=== PATIENT | female | born 1940 | race African-American/Black ===

== ENCOUNTER 2019-06-16 15:10 | Inpatient (IN) | payer MEDICARE, OTHER ==
[~2019-06-16] VITALS: Ht 157.5 cm; Wt 85.0 kg
[~2019-06-16 15:10] MED LIST: ASPI81CH43 GT; BAC20LQ GT; ENAL2.5T OR; LEVO25TA6 OR; OMEPRAZOLE; POTASSIUM; TRIATAB3 OR
[2019-06-16] MEDS ORDERED: cefTRIAXone 1GM/50ML D5W 50 ML IV ONE (15:15)
[2019-06-16] MEDS ORDERED: AZITHROMYCIN 500MG/ 250ML 250 ML IV ONE (15:15)
[2019-06-16] MEDS ORDERED: ZINC SULFATE 220mg CAP or TAB PO ONE (15:15)
[2019-06-16] MEDS ORDERED: ASCORBIC ACID 500 MG TAB PO ONE (15:15)
[2019-06-16] MEDS ORDERED: hydrALAZINE HCL 20 MG/ML VL IV PRN (16:45)
[2019-06-16] MEDS ORDERED: NITROGLYCERIN 0.4 MG SL TAB SL PRN (16:45)
[2019-06-16] MEDS ORDERED: ONDANSETRON HCL 4 MG/2 ML VIAL IV PRN (16:45)
[2019-06-16] MEDS ORDERED: MORPHINE SULF INJ 2 MG/ML SYRINGE 1ML IV PRN ×2 (16:45)
[2019-06-16 16:58] LABS: Basophils # (auto) 0.1 10 ^3/uL (0-0.2); Basophils % (auto) 0.4 % (0.0-2.0); Eosinophils # (auto) 0.1 10 ^3/uL (0-0.8); Eosinophils % (auto) 0.9 % (0.0-7.0); Hematocrit 34.3 % (36.0-46.0); Hemoglobin 10.9 g/dL (12.2-16.2); Lymphocytes # (auto) 0.3 10 ^3/uL (0.4-5.4); Lymphocytes % (auto) 2.1 % (10.0-50.0); Mean Corpuscular Hemoglobin 28.2 pg (28.0-32.0); Mean Corpuscular Hgb Conc. 31.8 g/dL (32.0-36.0); Mean Corpuscular Volume 88.7 fL (80.0-100.0); Monocytes # (auto) 1.2 10 ^3/uL (0-1.3); Monocytes % (auto) 7.9 % (0.0-12.0); Neutrophils # (auto) 12.9 10 ^3/uL (1.6-8.6); Neutrophils % (auto) 88.7 % (37.0-80.0); Nucleated Red Blood Cells % 0.1 %; Platelet Count (auto) 196 10^3/uL (140-450); Red Blood Cells 3.87 10^6/uL (4.0-5.20); Red Cell Distribution Width 18.2 % (11.8-14.3); White Blood Cell 14.5 10^3/uL (4.4-10.8)
[2019-06-16 17:05] LABS: INR 1.62 (0.9-1.15); Partial Thromboplastin Time 48.7 sec (23.64-32.05)
[2019-06-16 17:10] LABS: Albumin 1.8 g/dL (3.4-5.0); Anion Gap 9 (5-15); Blood Urea Nitrogen 35 mg/dL (7-18); Calcium 7.8 mg/dL (8.5-10.1); Carbon Dioxide 23 mmol/L (21-32); Chloride 102 mmol/L (98-107); Glucose 149 mg/dL (74-106); Potassium 3.8 mmol/L (3.5-5.1); Sodium 134 mmol/L (136-145)
[2019-06-16 17:12] LABS: Alanine Aminotransferase 7 U/L (13-56); Aspartate Aminotransferase 8 U/L (15-37); BUN/Creatinine Ratio 21.5; GFR African American 39 mL/min; GFR Non-African American 32 mL/min
[2019-06-16 17:15] LABS: Lactic Acid w/Reflex 2.3 mmol/L (0.4-2.0)
[2019-06-16 17:16] LABS: Alkaline Phosphatase 64 U/L (45-117); Bilirubin, Total 0.5 mg/dL (0.2-1.0); Total Protein 7.1 g/dL (6.4-8.2)
[2019-06-16 19:00] VITALS: BP 127/59
[2019-06-16 20:00] VITALS: BP_SYST 121; BP_SYST 127; BP_DIAS 58; BP_DIAS 59
[2019-06-16 21:00] VITALS: BP 118/55
[2019-06-16 21:07] VITALS: BP 127/59
[2019-06-16 22:00] VITALS: BP 130/66
[2019-06-17] VITALS (94 sets, daily range): BP systolic 82–138; BP diastolic 37–68
[2019-06-17] MEDS ORDERED: ALBUTEROL SULF 2.5 MG/0.5ML(0.5%) NEB SOLN NEB PRN (01:30)
[2019-06-17] MEDS ORDERED: ETOMIDATE (2MG/ML) 20ML VIAL IV ONE (01:47)
[2019-06-17] MEDS ORDERED: ROCURONIUM 10MG/ML 10ML VIAL IV ONE (01:48)
[2019-06-17] MEDS ORDERED: SUCCINYLCHOLINE CHLORIDE 20 MG/ML 10ML VIAL IV ONE (01:48)
[2019-06-17] MEDS ORDERED: MIDAZOLAM DRIP 50 mg/50mL 50 ML IV ONE (02:17)
[2019-06-17] MEDS: MIDAZOLAM DRIP 50 mg/50mL 50 ML IV SCH ×3 (02:30→23:33)
[2019-06-17] MEDS: IPRATROPIUM BROM 0.5 MG/2.5ML INH SOL NEB SCH ×4 (02:39→18:06)
[2019-06-17] MEDS: ALBUTEROL SULF 2.5 MG/0.5ML(0.5%) NEB SOLN NEB SCH ×4 (02:39→18:05)
[2019-06-17] MEDS: fentaNYL Drip 2500mCg/250mlNS 250 ML IV SCH ×2 (02:50→22:00)
[2019-06-17] MEDS ORDERED: ALBUMIN 5% 250 ML IV ONE ×2 (03:00→03:02)
[2019-06-17] MEDS ORDERED: fentaNYL Drip 2500mCg/250mlNS 250 ML IV ONE (03:01)
[2019-06-17 04:51] LABS: Basophils # (auto) 0.1 10 ^3/uL (0-0.2); Basophils % (auto) 0.6 % (0.0-2.0); Eosinophils # (auto) 0.3 10 ^3/uL (0-0.8); Hematocrit 31.1 % (36.0-46.0); Lymphocytes # (auto) 0.6 10 ^3/uL (0.4-5.4); Lymphocytes % (auto) 4.2 % (10.0-50.0); Mean Corpuscular Hemoglobin 28.2 pg (28.0-32.0); Mean Corpuscular Hgb Conc. 32.1 g/dL (32.0-36.0); Mean Corpuscular Volume 87.9 fL (80.0-100.0); Monocytes # (auto) 1.1 10 ^3/uL (0-1.3); Monocytes % (auto) 7.5 % (0.0-12.0); Neutrophils # (auto) 12.6 10 ^3/uL (1.6-8.6); Neutrophils % (auto) 85.7 % (37.0-80.0); Nucleated Red Blood Cells % 0.1 %; Platelet Count (auto) 193 10^3/uL (140-450); Red Blood Cells 3.54 10^6/uL (4.0-5.20); Red Cell Distribution Width 18.7 % (11.8-14.3); White Blood Cell 14.7 10^3/uL (4.4-10.8)
[2019-06-17] MEDS: LEVOTHYROXINE SODIUM 25 MCG TAB PO SCH (06:50)
[2019-06-17] MEDS ORDERED: NOREPINEPHRINE 8 MG/250ML KIT 250 ML IV ONE (07:05)
[2019-06-17] MEDS: NOREPINEPHRINE 8 MG/250ML KIT 250 ML IV SCH ×2 (07:08→22:00)
[2019-06-17] MEDS: ACETAMINOPHEN 500 MG TAB PO PRN (08:31)
[2019-06-17 08:45] LABS: Albumin 1.8 g/dL (3.4-5.0); BUN/Creatinine Ratio 18.6; Calcium 7.7 mg/dL (8.5-10.1); Potassium 3.6 mmol/L (3.5-5.1)
[2019-06-17 08:55] LABS: Bilirubin, Total 0.5 mg/dL (0.2-1.0); Total Protein 6.6 g/dL (6.4-8.2)
[2019-06-17] MEDS: ASPirin 81 mg TAB PO SCH (10:00)
[2019-06-17] MEDS: AZITHROMYCIN 500MG/ 250ML 250 ML IV SCH (12:53)
[2019-06-17] MEDS: PIPERACILLIN-TAZOB 3.375GM 100 ML IV SCH ×3 (14:59→23:40)
[2019-06-17 18:24] LABS: Urine Amorphous Crystal FEW /hpf (None Seen); Urine Bacteria NONE SEEN /hpf (None Seen); Urine Blood 1+ /uL (Negative); Urine Hyaline Cast MANY /lpf (0 - 2); Urine Mucus FEW (None Seen); Urine WBC 50 /hpf (0 - 5)
[2019-06-17] MEDS ORDERED: AML5T PO (19:32)
[2019-06-17] MEDS ORDERED: RIVA20TA PO (19:32)
[2019-06-17] MEDS ORDERED: HCTZ25T PO (19:32)
[2019-06-17] MEDS ORDERED: AMIO200T33 PO (19:32)
[2019-06-17] MEDS ORDERED: ATOR20TA50 PO (19:32)
[2019-06-18] VITALS (101 sets, daily range): BP systolic 90–126; BP diastolic 39–78
[2019-06-18] MEDS: ALBUTEROL SULF 2.5 MG/0.5ML(0.5%) NEB SOLN NEB SCH ×4 (00:05→18:15)
[2019-06-18] MEDS: IPRATROPIUM BROM 0.5 MG/2.5ML INH SOL NEB SCH ×4 (00:05→18:15)
[2019-06-18] MEDS: MIDAZOLAM DRIP 50 mg/50mL 50 ML IV SCH ×5 (02:30→20:20)
[2019-06-18] MEDS: PIPERACILLIN-TAZOB 3.375GM 100 ML IV SCH ×2 (05:30→12:48)
[2019-06-18 06:23] LABS: Basophils # (auto) 0.1 10 ^3/uL (0-0.2); Basophils % (auto) 0.7 % (0.0-2.0); Eosinophils # (auto) 0.8 10 ^3/uL (0-0.8); Eosinophils % (auto) 6.4 % (0.0-7.0); Hematocrit 29.1 % (36.0-46.0); Hemoglobin 9.4 g/dL (12.2-16.2); Lymphocytes # (auto) 0.7 10 ^3/uL (0.4-5.4); Lymphocytes % (auto) 5.4 % (10.0-50.0); Mean Corpuscular Hemoglobin 28.2 pg (28.0-32.0); Mean Corpuscular Hgb Conc. 32.2 g/dL (32.0-36.0); Mean Corpuscular Volume 87.3 fL (80.0-100.0); Monocytes # (auto) 0.9 10 ^3/uL (0-1.3); Monocytes % (auto) 7.6 % (0.0-12.0); Neutrophils # (auto) 9.8 10 ^3/uL (1.6-8.6); Neutrophils % (auto) 79.9 % (37.0-80.0); Platelet Count (auto) 162 10^3/uL (140-450); Red Blood Cells 3.33 10^6/uL (4.0-5.20); Red Cell Distribution Width 18.4 % (11.8-14.3); White Blood Cell 12.3 10^3/uL (4.4-10.8)
[2019-06-18 06:33] LABS: Potassium 3.9 mmol/L (3.5-5.1)
[2019-06-18 06:41] LABS: Albumin 1.8 g/dL (3.4-5.0); Bilirubin, Total 0.6 mg/dL (0.2-1.0); Calcium 7.4 mg/dL (8.5-10.1); Total Protein 7.1 g/dL (6.4-8.2)
[2019-06-18] MEDS: LEVOTHYROXINE SODIUM 25 MCG TAB PO SCH (06:44)
[2019-06-18] MEDS: ASPirin 81 mg TAB PO SCH (10:35)
[2019-06-18] MEDS: NOREPINEPHRINE 8 MG/250ML KIT 250 ML IV SCH (10:36)
[2019-06-18] MEDS: AZITHROMYCIN 500MG/ 250ML 250 ML IV SCH (10:36)
[2019-06-18] MEDS: fentaNYL Drip 2500mCg/250mlNS 250 ML IV SCH (16:42)
[2019-06-18] MEDS: PIPERACILLIN-TAZOB 2.25GM 50 ML IV SCH (17:58)
[2019-06-19] VITALS (103 sets, daily range): BP systolic 83–123; BP diastolic 31–59
[2019-06-19] MEDS: PIPERACILLIN-TAZOB 2.25GM 50 ML IV SCH ×4 (00:05→17:52)
[2019-06-19] MEDS: IPRATROPIUM BROM 0.5 MG/2.5ML INH SOL NEB SCH ×4 (00:10→18:10)
[2019-06-19] MEDS: ALBUTEROL SULF 2.5 MG/0.5ML(0.5%) NEB SOLN NEB SCH ×4 (00:10→18:10)
[2019-06-19] MEDS: NOREPINEPHRINE 8 MG/250ML KIT 250 ML IV SCH ×2 (03:44→17:52)
[2019-06-19] MEDS: MIDAZOLAM DRIP 50 mg/50mL 50 ML IV SCH ×3 (03:44→23:02)
[2019-06-19] MEDS: LEVOTHYROXINE SODIUM 25 MCG TAB PO SCH (06:22)
[2019-06-19 07:07] LABS: Basophils # (auto) 0.1 10 ^3/uL (0-0.2); Basophils % (auto) 0.8 % (0.0-2.0); Eosinophils # (auto) 0.6 10 ^3/uL (0-0.8); Eosinophils % (auto) 5.9 % (0.0-7.0); Hematocrit 28.6 % (36.0-46.0); Hemoglobin 9.2 g/dL (12.2-16.2); Lymphocytes # (auto) 0.6 10 ^3/uL (0.4-5.4); Mean Corpuscular Hemoglobin 28.2 pg (28.0-32.0); Mean Corpuscular Hgb Conc. 32.2 g/dL (32.0-36.0); Mean Corpuscular Volume 87.6 fL (80.0-100.0); Monocytes # (auto) 0.9 10 ^3/uL (0-1.3); Monocytes % (auto) 8.8 % (0.0-12.0); Neutrophils # (auto) 8.2 10 ^3/uL (1.6-8.6); Neutrophils % (auto) 78.5 % (37.0-80.0); Nucleated Red Blood Cells % 0.1 %; Platelet Count (auto) 141 10^3/uL (140-450); Red Blood Cells 3.26 10^6/uL (4.0-5.20); Red Cell Distribution Width 17.8 % (11.8-14.3); White Blood Cell 10.4 10^3/uL (4.4-10.8)
[2019-06-19 07:21] LABS: Potassium 3.7 mmol/L (3.5-5.1)
[2019-06-19 07:27] LABS: Albumin 1.6 g/dL (3.4-5.0); BUN/Creatinine Ratio 16.3; Calcium 7.6 mg/dL (8.5-10.1)
[2019-06-19 07:29] LABS: Bilirubin, Total 0.5 mg/dL (0.2-1.0); Total Protein 6.8 g/dL (6.4-8.2)
[2019-06-19] MEDS: PANTOPRAZOLE 40 MG/10 ML VIAL INJ IV SCH (10:54)
[2019-06-19] MEDS: ASPirin 81 mg TAB PO SCH (10:54)
[2019-06-19] MEDS: AZITHROMYCIN 500MG/ 250ML 250 ML IV SCH (10:54)
[2019-06-19] MEDS: fentaNYL Drip 2500mCg/250mlNS 250 ML IV SCH (11:13)
[2019-06-19] MEDS: METOCLOPRAMIDE HCL 5MG/ml INJ 2ml VIAL IV SCH ×2 (12:47→17:52)
[2019-06-19] MEDS ORDERED: ROCURONIUM 10MG/ML 10ML VIAL IV ONE (14:49)
[2019-06-20] VITALS (102 sets, daily range): BP systolic 88–130; BP diastolic 32–105
[2019-06-20] MEDS: IPRATROPIUM BROM 0.5 MG/2.5ML INH SOL NEB SCH ×4 (00:07→18:06)
[2019-06-20] MEDS: ALBUTEROL SULF 2.5 MG/0.5ML(0.5%) NEB SOLN NEB SCH ×4 (00:07→18:07)
[2019-06-20] MEDS ORDERED: FUROSEMIDE 40 MG/4 ML VIAL IV ONE (02:00)
[2019-06-20 04:01] LABS: Basophils # (auto) 0.1 10 ^3/uL (0-0.2); Basophils % (auto) 1.2 % (0.0-2.0); Eosinophils # (auto) 0.5 10 ^3/uL (0-0.8); Hematocrit 26.5 % (36.0-46.0); Hemoglobin 8.5 g/dL (12.2-16.2); Lymphocytes # (auto) 0.6 10 ^3/uL (0.4-5.4); Lymphocytes % (auto) 5.7 % (10.0-50.0); Mean Corpuscular Hemoglobin 27.6 pg (28.0-32.0); Mean Corpuscular Hgb Conc. 31.9 g/dL (32.0-36.0); Mean Corpuscular Volume 86.6 fL (80.0-100.0); Monocytes # (auto) 0.8 10 ^3/uL (0-1.3); Neutrophils # (auto) 8.2 10 ^3/uL (1.6-8.6); Neutrophils % (auto) 80.1 % (37.0-80.0); Platelet Count (auto) 134 10^3/uL (140-450); Red Blood Cells 3.06 10^6/uL (4.0-5.20); White Blood Cell 10.3 10^3/uL (4.4-10.8)
[2019-06-20 04:19] LABS: Albumin 1.5 g/dL (3.4-5.0); Calcium 7.3 mg/dL (8.5-10.1); Potassium 3.5 mmol/L (3.5-5.1)
[2019-06-20 04:22] LABS: Bilirubin, Total 0.4 mg/dL (0.2-1.0); Total Protein 6.9 g/dL (6.4-8.2)
[2019-06-20 04:35] LABS: Lactate Dehydrogenase 150 U/L (84-246)
[2019-06-20 04:36] LABS: CRP High Sensitivity > 19.0 mg/dL (< 0.3)
[2019-06-20] MEDS ORDERED: FUROSEMIDE 20 MG/2 ML VIAL ONE (05:13)
[2019-06-20] MEDS: METOCLOPRAMIDE HCL 5MG/ml INJ 2ml VIAL IV SCH ×4 (05:41→18:23)
[2019-06-20] MEDS: PIPERACILLIN-TAZOB 2.25GM 50 ML IV SCH ×4 (05:41→18:23)
[2019-06-20] MEDS: fentaNYL Drip 2500mCg/250mlNS 250 ML IV SCH (06:02)
[2019-06-20] MEDS: LEVOTHYROXINE SODIUM 25 MCG TAB PO SCH (06:37)
[2019-06-20] MEDS: ASPirin 81 mg TAB PO SCH (10:00)
[2019-06-20] MEDS: PANTOPRAZOLE 40 MG/10 ML VIAL INJ IV SCH (10:36)
[2019-06-20] MEDS: AZITHROMYCIN 500MG/ 250ML 250 ML IV SCH (10:36)
[2019-06-20] MEDS ORDERED: POTASSIUM EFFERVESENT TAB 25 MEQ GT ONE (11:45)
[2019-06-20] MEDS ORDERED: ALBUMIN 25% 100 ML IV ONE (12:13)
[2019-06-20] MEDS: MIDAZOLAM DRIP 50 mg/50mL 50 ML IV SCH (12:15)
[2019-06-20] MEDS: NOREPINEPHRINE 8 MG/250ML KIT 250 ML IV SCH (12:18)
[2019-06-20] MEDS: ALBUMIN 25% 100 ML IV SCH ×2 (12:27→23:52)
[2019-06-20] MEDS: BUMETANIDE 2.5mg/10ml (0.25 mg/ml) INJ IV SCH ×2 (14:24→18:14)
[2019-06-20 17:06] LABS: Protein, Urine 37.3 mg/dL (0.0-11.9)
[2019-06-20] MEDS ORDERED: HEPARIN SODIUM (PORCINE) 5000 UNITS/ML 1ML VIAL IV ONE (21:00)
[2019-06-20 21:16] LABS: Basophils # (auto) 0.1 10 ^3/uL (0-0.2); Eosinophils # (auto) 0.6 10 ^3/uL (0-0.8); Hematocrit 23.2 % (36.0-46.0); Lymphocytes # (auto) 0.6 10 ^3/uL (0.4-5.4); Monocytes # (auto) 0.8 10 ^3/uL (0-1.3); Neutrophils % (auto) 76.8 % (37.0-80.0); Red Blood Cells 2.68 10^6/uL (4.0-5.20)
[2019-06-20 21:18] LABS: Basophils % (auto) 0.9 % (0.0-2.0); Eosinophils % (auto) 6.4 % (0.0-7.0); Hemoglobin 7.5 g/dL (12.2-16.2); Lymphocytes % (auto) 6.8 % (10.0-50.0); Mean Corpuscular Hgb Conc. 32.5 g/dL (32.0-36.0); Mean Corpuscular Volume 86.3 fL (80.0-100.0); Monocytes % (auto) 9.1 % (0.0-12.0); Neutrophils # (auto) 6.7 10 ^3/uL (1.6-8.6); Platelet Count (auto) 117 10^3/uL (140-450); Red Cell Distribution Width 17.8 % (11.8-14.3); White Blood Cell 8.7 10^3/uL (4.4-10.8)
[2019-06-20 21:40] LABS: INR 1.15 (0.9-1.15); Partial Thromboplastin Time 36.6 sec (23.64-32.05)
[2019-06-20] MEDS: HEPARIN DRIP/D5W 100UNITS/ML 250 ML IV SCH (21:40)
[2019-06-20] MEDS: methylPREDNISolone SOD SUCC 40 MG/ML VL IV SCH (22:00)
[2019-06-21] VITALS (102 sets, daily range): BP systolic 91–138; BP diastolic 25–66
[2019-06-21] MEDS: ALBUTEROL SULF 2.5 MG/0.5ML(0.5%) NEB SOLN NEB SCH ×4 (00:05→18:39)
[2019-06-21] MEDS: IPRATROPIUM BROM 0.5 MG/2.5ML INH SOL NEB SCH ×4 (00:05→18:39)
[2019-06-21] MEDS: MIDAZOLAM DRIP 50 mg/50mL 50 ML IV SCH ×2 (01:40→07:23)
[2019-06-21] MEDS: fentaNYL Drip 2500mCg/250mlNS 250 ML IV SCH ×2 (01:40→21:21)
[2019-06-21 04:19] LABS: Basophils # (auto) 0 10 ^3/uL (0-0.2); Basophils % (auto) 0.5 % (0.0-2.0); Eosinophils # (auto) 0 10 ^3/uL (0-0.8); Eosinophils % (auto) 0.5 % (0.0-7.0); Hematocrit 22.6 % (36.0-46.0); Hemoglobin 7.5 g/dL (12.2-16.2); Lymphocytes # (auto) 0.2 10 ^3/uL (0.4-5.4); Lymphocytes % (auto) 2.3 % (10.0-50.0); Mean Corpuscular Hemoglobin 28.7 pg (28.0-32.0); Mean Corpuscular Hgb Conc. 33.1 g/dL (32.0-36.0); Mean Corpuscular Volume 86.8 fL (80.0-100.0); Monocytes # (auto) 0.1 10 ^3/uL (0-1.3); Monocytes % (auto) 0.7 % (0.0-12.0); Neutrophils # (auto) 6.9 10 ^3/uL (1.6-8.6); Platelet Count (auto) 110 10^3/uL (140-450); Red Cell Distribution Width 17.8 % (11.8-14.3); White Blood Cell 7.2 10^3/uL (4.4-10.8)
[2019-06-21 04:21] LABS: BUN/Creatinine Ratio 17.8; Calcium 7.4 mg/dL (8.5-10.1); Potassium 4.2 mmol/L (3.5-5.1)
[2019-06-21 04:38] LABS: INR 1.16 (0.9-1.15)
[2019-06-21 05:00] LABS: Partial Thromboplastin Time 101.1 sec (23.64-32.05)
[2019-06-21] MEDS: BUMETANIDE 2.5mg/10ml (0.25 mg/ml) INJ IV SCH ×2 (05:38→17:59)
[2019-06-21] MEDS: LEVOTHYROXINE SODIUM 25 MCG TAB PO SCH (05:38)
[2019-06-21] MEDS: METOCLOPRAMIDE HCL 5MG/ml INJ 2ml VIAL IV SCH ×4 (05:38→17:59)
[2019-06-21] MEDS: PIPERACILLIN-TAZOB 2.25GM 50 ML IV SCH ×4 (06:00→17:59)
[2019-06-21] MEDS: PANTOPRAZOLE 40 MG/10 ML VIAL INJ IV SCH (10:33)
[2019-06-21] MEDS: ASPirin 81 mg TAB PO SCH (10:34)
[2019-06-21] MEDS: AZITHROMYCIN 500MG/ 250ML 250 ML IV SCH (10:34)
[2019-06-21] MEDS: methylPREDNISolone SOD SUCC 40 MG/ML VL IV SCH ×2 (10:34→21:26)
[2019-06-21 11:25] LABS: INR 1.15 (0.9-1.15); Partial Thromboplastin Time 69.4 sec (23.64-32.05)
[2019-06-21] MEDS: ALBUMIN 25% 100 ML IV SCH (12:12)
[2019-06-21] MEDS: HEPARIN DRIP/D5W 100UNITS/ML 250 ML IV SCH (14:52)
[2019-06-21 18:40] LABS: INR 1.13 (0.9-1.15)
[2019-06-22] VITALS (111 sets, daily range): BP systolic 90–159; BP diastolic 27–81
[2019-06-22] MEDS: PIPERACILLIN-TAZOB 2.25GM 50 ML IV SCH ×4 (00:20→17:47)
[2019-06-22] MEDS: METOCLOPRAMIDE HCL 5MG/ml INJ 2ml VIAL IV SCH ×4 (00:20→17:46)
[2019-06-22] MEDS: ALBUTEROL SULF 2.5 MG/0.5ML(0.5%) NEB SOLN NEB SCH ×4 (00:37→18:33)
[2019-06-22] MEDS: IPRATROPIUM BROM 0.5 MG/2.5ML INH SOL NEB SCH ×4 (00:37→18:32)
[2019-06-22] MEDS: ALBUMIN 25% 100 ML IV SCH (01:18)
[2019-06-22 02:33] LABS: INR 1.15 (0.9-1.15)
[2019-06-22 04:38] LABS: Basophils # (auto) 0 10 ^3/uL (0-0.2); Eosinophils # (auto) 0 10 ^3/uL (0-0.8); Eosinophils % (auto) 0.1 % (0.0-7.0); Lymphocytes # (auto) 0.3 10 ^3/uL (0.4-5.4); Mean Corpuscular Volume 86.5 fL (80.0-100.0); Monocytes # (auto) 0.2 10 ^3/uL (0-1.3); Nucleated Red Blood Cells % 0.1 %; Platelet Count (auto) 134 10^3/uL (140-450); Red Cell Distribution Width 17.9 % (11.8-14.3)
[2019-06-22 04:41] LABS: Basophils % (auto) 0.2 % (0.0-2.0); Hematocrit 20.8 % (36.0-46.0); Lymphocytes % (auto) 4.6 % (10.0-50.0); Mean Corpuscular Hemoglobin 28.2 pg (28.0-32.0); Mean Corpuscular Hgb Conc. 32.6 g/dL (32.0-36.0); Monocytes % (auto) 2.9 % (0.0-12.0); Neutrophils # (auto) 5.1 10 ^3/uL (1.6-8.6); Neutrophils % (auto) 92.2 % (37.0-80.0); Red Blood Cells 2.41 10^6/uL (4.0-5.20); White Blood Cell 5.5 10^3/uL (4.4-10.8)
[2019-06-22 04:47] LABS: Hemoglobin 6.8 g/dL (12.2-16.2)
[2019-06-22 05:10] LABS: Potassium 3.8 mmol/L (3.5-5.1)
[2019-06-22 05:17] LABS: Albumin 2.3 g/dL (3.4-5.0); Bilirubin, Total 0.4 mg/dL (0.2-1.0); Calcium 7.7 mg/dL (8.5-10.1); Total Protein 6.5 g/dL (6.4-8.2)
[2019-06-22 05:25] LABS: CRP High Sensitivity 8.37 mg/dL (< 0.3)
[2019-06-22] MEDS: HEPARIN DRIP/D5W 100UNITS/ML 250 ML IV SCH ×2 (06:27→22:40)
[2019-06-22] MEDS: BUMETANIDE 2.5mg/10ml (0.25 mg/ml) INJ IV SCH ×2 (06:28→17:47)
[2019-06-22] MEDS: LEVOTHYROXINE SODIUM 25 MCG TAB PO SCH (07:00)
[2019-06-22] MEDS: NOREPINEPHRINE 8 MG/250ML KIT 250 ML IV SCH (07:02)
[2019-06-22] MEDS ORDERED: EPINEPHrine HCL 1 MG/1 ML AMP ONE (08:59)
[2019-06-22] MEDS ORDERED: LIDOCAINE HCL 2% TOP JELLY 5ML TOP ONE (08:59)
[2019-06-22] MEDS ORDERED: SODIUM CHLORIDE LOCK 0 ML ONE (08:59)
[2019-06-22] MEDS ORDERED: LIDOCAINE 2%HCL (LOCAL ANESTH.) INJ 20ML MDV ONE (08:59)
[2019-06-22] MEDS ORDERED: SODIUM BICARBONATE 8.4 % INJ 50ML VIAL IV ONE (09:30)
[2019-06-22] MEDS: ASPirin 81 mg TAB PO SCH (10:00)
[2019-06-22] MEDS: AZITHROMYCIN 500MG/ 250ML 250 ML IV SCH (10:21)
[2019-06-22] MEDS: methylPREDNISolone SOD SUCC 40 MG/ML VL IV SCH ×2 (10:21→22:41)
[2019-06-22] MEDS: PANTOPRAZOLE 40 MG/10 ML VIAL INJ IV SCH (10:21)
[2019-06-22] MEDS: fentaNYL Drip 2500mCg/250mlNS 250 ML IV SCH (10:24)
[2019-06-22] MEDS: MIDAZOLAM DRIP 50 mg/50mL 50 ML IV SCH ×2 (10:24→22:28)
[2019-06-22] MEDS ORDERED: ACETYLCYSTEINE 10 %(100MG/ML) SOL 4ML NEB ONE (11:45)
[2019-06-22] MEDS ORDERED: ROCURONIUM 10MG/ML 10ML VIAL IV ONE (13:05)
[2019-06-23] VITALS (107 sets, daily range): BP systolic 105–145; BP diastolic 35–67
[2019-06-23] MEDS: METOCLOPRAMIDE HCL 5MG/ml INJ 2ml VIAL IV SCH ×5 (00:02→23:57)
[2019-06-23] MEDS: PIPERACILLIN-TAZOB 2.25GM 50 ML IV SCH ×5 (00:03→23:57)
[2019-06-23] MEDS: ALBUTEROL SULF 2.5 MG/0.5ML(0.5%) NEB SOLN NEB SCH ×4 (00:21→18:39)
[2019-06-23] MEDS: IPRATROPIUM BROM 0.5 MG/2.5ML INH SOL NEB SCH ×4 (00:21→18:39)
[2019-06-23 01:18] LABS: Hemoglobin 8.2 g/dL (12.2-16.2)
[2019-06-23 01:24] LABS: INR 1.2 (0.9-1.15)
[2019-06-23] MEDS: fentaNYL Drip 2500mCg/250mlNS 250 ML IV SCH (02:00)
[2019-06-23] MEDS: MIDAZOLAM DRIP 50 mg/50mL 50 ML IV SCH (04:14)
[2019-06-23] MEDS: BUMETANIDE 2.5mg/10ml (0.25 mg/ml) INJ IV SCH ×2 (05:51→18:51)
[2019-06-23] MEDS: LEVOTHYROXINE SODIUM 25 MCG TAB PO SCH (07:01)
[2019-06-23] MEDS: NOREPINEPHRINE 8 MG/250ML KIT 250 ML IV SCH (07:02)
[2019-06-23] MEDS: ASPirin 81 mg TAB PO SCH (10:01)
[2019-06-23] MEDS: PANTOPRAZOLE 40 MG/10 ML VIAL INJ IV SCH (10:01)
[2019-06-23] MEDS: methylPREDNISolone SOD SUCC 40 MG/ML VL IV SCH ×2 (10:01→22:16)
[2019-06-23] MEDS: AZITHROMYCIN 500MG/ 250ML 250 ML IV SCH (10:07)
[2019-06-23] MEDS: HEPARIN DRIP/D5W 100UNITS/ML 250 ML IV SCH (14:02)
[2019-06-24] VITALS (106 sets, daily range): BP systolic 93–230; BP diastolic 35–103
[2019-06-24] MEDS: IPRATROPIUM BROM 0.5 MG/2.5ML INH SOL NEB SCH ×4 (00:10→18:36)
[2019-06-24] MEDS: ALBUTEROL SULF 2.5 MG/0.5ML(0.5%) NEB SOLN NEB SCH ×4 (00:10→18:36)
[2019-06-24] MEDS: fentaNYL Drip 2500mCg/250mlNS 250 ML IV SCH (01:59)
[2019-06-24] MEDS: PIPERACILLIN-TAZOB 2.25GM 50 ML IV SCH ×3 (06:00→18:04)
[2019-06-24] MEDS: METOCLOPRAMIDE HCL 5MG/ml INJ 2ml VIAL IV SCH ×3 (06:00→17:51)
[2019-06-24] MEDS: BUMETANIDE 2.5mg/10ml (0.25 mg/ml) INJ IV SCH ×2 (06:00→18:04)
[2019-06-24] MEDS: HEPARIN DRIP/D5W 100UNITS/ML 250 ML IV SCH ×2 (06:10→22:18)
[2019-06-24] MEDS: NOREPINEPHRINE 8 MG/250ML KIT 250 ML IV SCH (07:02)
[2019-06-24] MEDS: LEVOTHYROXINE SODIUM 25 MCG TAB PO SCH (07:52)
[2019-06-24] MEDS: AZITHROMYCIN 500MG/ 250ML 250 ML IV SCH (09:57)
[2019-06-24] MEDS: methylPREDNISolone SOD SUCC 40 MG/ML VL IV SCH ×2 (10:02→22:00)
[2019-06-24] MEDS: PANTOPRAZOLE 40 MG/10 ML VIAL INJ IV SCH (10:02)
[2019-06-24] MEDS: ASPirin 81 mg TAB PO SCH (10:02)
[2019-06-24 10:45] LABS: Chloride 108 mmol/L (98-107); Potassium 3.3 mmol/L (3.5-5.1); Sodium 144 mmol/L (136-145)
[2019-06-24 10:46] LABS: Anion Gap 9 (5-15); BUN/Creatinine Ratio 33.8; Blood Urea Nitrogen 66 mg/dL (7-18); Carbon Dioxide 27 mmol/L (21-32); GFR African American 32 mL/min; GFR Non-African American 26 mL/min; Glucose 173 mg/dL (74-106)
[2019-06-24] MEDS: POTASSIUM CHL 20MEQ/100ML 100 ML IV SCH ×2 (11:03→12:35)
[2019-06-24 22:39] LABS: INR 1.35 (0.9-1.15)
[2019-06-24 22:45] LABS: Partial Thromboplastin Time 103.3 sec (23.64-32.05)
[2019-06-25] VITALS (107 sets, daily range): BP systolic 96–189; BP diastolic 37–148
[2019-06-25] MEDS: METOCLOPRAMIDE HCL 5MG/ml INJ 2ml VIAL IV SCH ×4 (00:03→18:00)
[2019-06-25] MEDS: PIPERACILLIN-TAZOB 2.25GM 50 ML IV SCH ×4 (00:03→17:55)
[2019-06-25] MEDS: IPRATROPIUM BROM 0.5 MG/2.5ML INH SOL NEB SCH ×4 (00:12→18:20)
[2019-06-25] MEDS: ALBUTEROL SULF 2.5 MG/0.5ML(0.5%) NEB SOLN NEB SCH ×4 (00:12→18:20)
[2019-06-25] MEDS: MIDAZOLAM DRIP 50 mg/50mL 50 ML IV SCH ×2 (02:46→16:22)
[2019-06-25] MEDS: fentaNYL Drip 2500mCg/250mlNS 250 ML IV SCH (03:05)
[2019-06-25 03:53] LABS: Hematocrit 30.3 % (36.0-46.0); Hemoglobin 9.5 g/dL (12.2-16.2); Mean Corpuscular Hemoglobin 27.4 pg (28.0-32.0); Mean Corpuscular Hgb Conc. 31.5 g/dL (32.0-36.0); Mean Corpuscular Volume 87.2 fL (80.0-100.0); Platelet Count (auto) 194 10^3/uL (140-450); Red Blood Cells 3.48 10^6/uL (4.0-5.20); Red Cell Distribution Width 17.9 % (11.8-14.3); White Blood Cell 13.2 10^3/uL (4.4-10.8)
[2019-06-25 03:58] LABS: Band Neutrophils % (manual) 0; Basophils % (manual) 0 (0.0-2.0); Blast Cells 0; Eosinophils % (manual) 0 (0-7); Monocytes % (manual) 0 (0-12); Myelocytes % 0; Promyelocytes % 0; Reactive Lymphocytes 0
[2019-06-25 04:07] LABS: Albumin 2.4 g/dL (3.4-5.0); Calcium 7.9 mg/dL (8.5-10.1); Magnesium 2.4 mg/dL (1.6-2.6); Potassium 3.7 mmol/L (3.5-5.1)
[2019-06-25 04:09] LABS: Lymphocytes % (manual) 3 (10.0-50.0); Metamyelocytes % 1
[2019-06-25 04:11] LABS: BUN/Creatinine Ratio 35.4; Bilirubin, Total 0.5 mg/dL (0.2-1.0); Total Protein 6.2 g/dL (6.4-8.2)
[2019-06-25] MEDS: BUMETANIDE 2.5mg/10ml (0.25 mg/ml) INJ IV SCH ×2 (05:32→17:55)
[2019-06-25] MEDS: LEVOTHYROXINE SODIUM 25 MCG TAB PO SCH (05:32)
[2019-06-25] MEDS: NOREPINEPHRINE 8 MG/250ML KIT 250 ML IV SCH (07:02)
[2019-06-25 07:39] LABS: INR 1.36 (0.9-1.15)
[2019-06-25 07:42] LABS: Partial Thromboplastin Time 77.7 sec (23.64-32.05)
[2019-06-25] MEDS: PANTOPRAZOLE 40 MG/10 ML VIAL INJ IV SCH (09:29)
[2019-06-25] MEDS: methylPREDNISolone SOD SUCC 40 MG/ML VL IV SCH ×2 (09:29→22:17)
[2019-06-25] MEDS: ASPirin 81 mg TAB PO SCH (09:29)
[2019-06-25] MEDS: AZITHROMYCIN 500MG/ 250ML 250 ML IV SCH (09:29)
[2019-06-25 14:03] LABS: INR 1.34 (0.9-1.15); Partial Thromboplastin Time 53.5 sec (23.64-32.05)
[2019-06-25] MEDS: HEPARIN DRIP/D5W 100UNITS/ML 250 ML IV SCH ×2 (14:26→18:01)
[2019-06-25] MEDS ORDERED: Jevity 1.2 Cal/Fiber 1 Liter GT SCH (14:45)
[2019-06-26] VITALS (104 sets, daily range): BP systolic 100–166; BP diastolic 32–135
[2019-06-26] MEDS: ALBUTEROL SULF 2.5 MG/0.5ML(0.5%) NEB SOLN NEB SCH ×4 (00:18→18:04)
[2019-06-26] MEDS: IPRATROPIUM BROM 0.5 MG/2.5ML INH SOL NEB SCH ×4 (00:18→18:05)
[2019-06-26 02:07] LABS: Basophils # (auto) 0 10 ^3/uL (0-0.2); Basophils % (auto) 0.2 % (0.0-2.0); Eosinophils # (auto) 0.1 10 ^3/uL (0-0.8); Eosinophils % (auto) 0.6 % (0.0-7.0); Hematocrit 29.3 % (36.0-46.0); Hemoglobin 9.1 g/dL (12.2-16.2); Lymphocytes # (auto) 0.3 10 ^3/uL (0.4-5.4); Lymphocytes % (auto) 1.5 % (10.0-50.0); Mean Corpuscular Hemoglobin 27.7 pg (28.0-32.0); Mean Corpuscular Hgb Conc. 31.2 g/dL (32.0-36.0); Mean Corpuscular Volume 88.7 fL (80.0-100.0); Monocytes # (auto) 0.9 10 ^3/uL (0-1.3); Monocytes % (auto) 4.9 % (0.0-12.0); Neutrophils # (auto) 16.3 10 ^3/uL (1.6-8.6); Neutrophils % (auto) 92.8 % (37.0-80.0); Nucleated Red Blood Cells % 0.1 %; Platelet Count (auto) 178 10^3/uL (140-450); Red Cell Distribution Width 18.3 % (11.8-14.3); White Blood Cell 17.5 10^3/uL (4.4-10.8)
[2019-06-26 02:20] LABS: BUN/Creatinine Ratio 37.6; Potassium 3.6 mmol/L (3.5-5.1)
[2019-06-26 02:22] LABS: INR 1.37 (0.9-1.15); Partial Thromboplastin Time 62.1 sec (23.64-32.05)
[2019-06-26] MEDS: MIDAZOLAM DRIP 50 mg/50mL 50 ML IV SCH (02:55)
[2019-06-26] MEDS: fentaNYL Drip 2500mCg/250mlNS 250 ML IV SCH (02:56)
[2019-06-26] MEDS: BUMETANIDE 2.5mg/10ml (0.25 mg/ml) INJ IV SCH ×2 (05:35→18:17)
[2019-06-26] MEDS: METOCLOPRAMIDE HCL 5MG/ml INJ 2ml VIAL IV SCH ×5 (05:35→23:51)
[2019-06-26] MEDS: PIPERACILLIN-TAZOB 2.25GM 50 ML IV SCH ×5 (05:35→23:51)
[2019-06-26] MEDS: ASPirin 81 mg TAB PO SCH (09:27)
[2019-06-26] MEDS: PANTOPRAZOLE 40 MG/10 ML VIAL INJ IV SCH (09:27)
[2019-06-26] MEDS: AZITHROMYCIN 500MG/ 250ML 250 ML IV SCH (09:27)
[2019-06-26] MEDS: methylPREDNISolone SOD SUCC 40 MG/ML VL IV SCH ×2 (09:27→22:05)
[2019-06-26] MEDS: LEVOTHYROXINE SODIUM 25 MCG TAB PO SCH (09:36)
[2019-06-26] MEDS: HEPARIN DRIP/D5W 100UNITS/ML 250 ML IV SCH (15:48)
[2019-06-27] VITALS (102 sets, daily range): BP systolic 105–164; BP diastolic 32–66
[2019-06-27] MEDS: IPRATROPIUM BROM 0.5 MG/2.5ML INH SOL NEB SCH ×4 (00:25→18:42)
[2019-06-27] MEDS: ALBUTEROL SULF 2.5 MG/0.5ML(0.5%) NEB SOLN NEB SCH ×4 (00:25→18:42)
[2019-06-27] MEDS: MIDAZOLAM DRIP 50 mg/50mL 50 ML IV SCH (02:55)
[2019-06-27] MEDS: fentaNYL Drip 2500mCg/250mlNS 250 ML IV SCH (03:07)
[2019-06-27 04:54] LABS: INR 1.3 (0.9-1.15)
[2019-06-27] MEDS: PIPERACILLIN-TAZOB 2.25GM 50 ML IV SCH ×3 (05:40→18:36)
[2019-06-27] MEDS: LEVOTHYROXINE SODIUM 25 MCG TAB PO SCH (05:40)
[2019-06-27] MEDS: METOCLOPRAMIDE HCL 5MG/ml INJ 2ml VIAL IV SCH ×3 (05:41→18:00)
[2019-06-27] MEDS: BUMETANIDE 2.5mg/10ml (0.25 mg/ml) INJ IV SCH ×2 (05:41→18:35)
[2019-06-27] MEDS: NOREPINEPHRINE 8 MG/250ML KIT 250 ML IV SCH (07:02)
[2019-06-27] MEDS: ASPirin 81 mg TAB PO SCH (09:47)
[2019-06-27] MEDS: methylPREDNISolone SOD SUCC 40 MG/ML VL IV SCH ×2 (09:47→22:14)
[2019-06-27] MEDS: PANTOPRAZOLE 40 MG/10 ML VIAL INJ IV SCH (09:47)
[2019-06-27] MEDS: AZITHROMYCIN 500MG/ 250ML 250 ML IV SCH (09:47)
[2019-06-27 10:19] LABS: Hematocrit 28.9 % (36.0-46.0); Mean Corpuscular Hemoglobin 27.9 pg (28.0-32.0); Mean Corpuscular Hgb Conc. 31.1 g/dL (32.0-36.0); Mean Corpuscular Volume 89.8 fL (80.0-100.0); Platelet Count (auto) 161 10^3/uL (140-450); Red Blood Cells 3.22 10^6/uL (4.0-5.20); Red Cell Distribution Width 18.9 % (11.8-14.3); White Blood Cell 16.7 10^3/uL (4.4-10.8)
[2019-06-27 10:23] LABS: Basophils % (manual) 0 (0.0-2.0); Blast Cells 0; Metamyelocytes % 0; Myelocytes % 0; Promyelocytes % 0; Reactive Lymphocytes 0
[2019-06-27 10:26] LABS: Calcium 8.2 mg/dL (8.5-10.1); Potassium 4.1 mmol/L (3.5-5.1)
[2019-06-27 10:38] LABS: Band Neutrophils % (manual) 3; Eosinophils % (manual) 1 (0-7); Lymphocytes % (manual) 4 (10.0-50.0); Monocytes % (manual) 2 (0-12)
[2019-06-28] VITALS (87 sets, daily range): BP systolic 106–194; BP diastolic 36–72
[2019-06-28] MEDS: IPRATROPIUM BROM 0.5 MG/2.5ML INH SOL NEB SCH ×4 (00:12→18:28)
[2019-06-28] MEDS: ALBUTEROL SULF 2.5 MG/0.5ML(0.5%) NEB SOLN NEB SCH ×4 (00:12→18:28)
[2019-06-28] MEDS: METOCLOPRAMIDE HCL 5MG/ml INJ 2ml VIAL IV SCH ×5 (00:20→23:48)
[2019-06-28] MEDS: PIPERACILLIN-TAZOB 2.25GM 50 ML IV SCH ×5 (00:20→23:47)
[2019-06-28] MEDS: fentaNYL Drip 2500mCg/250mlNS 250 ML IV SCH (02:56)
[2019-06-28 04:33] LABS: Hematocrit 28.5 % (36.0-46.0); Hemoglobin 8.9 g/dL (12.2-16.2); Mean Corpuscular Hemoglobin 27.8 pg (28.0-32.0); Mean Corpuscular Hgb Conc. 31.2 g/dL (32.0-36.0); Mean Corpuscular Volume 89.2 fL (80.0-100.0); Platelet Count (auto) 133 10^3/uL (140-450); Red Cell Distribution Width 18.8 % (11.8-14.3); White Blood Cell 17.2 10^3/uL (4.4-10.8)
[2019-06-28 04:36] LABS: INR 1.31 (0.9-1.15); Partial Thromboplastin Time 28.5 sec (23.64-32.05)
[2019-06-28 04:38] LABS: Basophils % (manual) 0 (0.0-2.0); Blast Cells 0; Eosinophils % (manual) 0 (0-7); Metamyelocytes % 0; Myelocytes % 0; Promyelocytes % 0; Reactive Lymphocytes 0
[2019-06-28 04:41] LABS: Albumin 2.4 g/dL (3.4-5.0); Calcium 8.1 mg/dL (8.5-10.1)
[2019-06-28 04:46] LABS: BUN/Creatinine Ratio 44.3; Bilirubin, Total 0.7 mg/dL (0.2-1.0); Total Protein 5.5 g/dL (6.4-8.2)
[2019-06-28] MEDS: LEVOTHYROXINE SODIUM 25 MCG TAB PO SCH (06:21)
[2019-06-28] MEDS: BUMETANIDE 2.5mg/10ml (0.25 mg/ml) INJ IV SCH (06:21)
[2019-06-28] MEDS: FREE WATER GT SCH ×6 (06:21→22:07)
[2019-06-28 06:41] LABS: Band Neutrophils % (manual) 5; Lymphocytes % (manual) 1 (10.0-50.0); Monocytes % (manual) 2 (0-12)
[2019-06-28] MEDS ORDERED: fentaNYL Drip 2500mCg/250mlNS 250 ML IV SCH (06:51)
[2019-06-28] MEDS: HEPARIN DRIP/D5W 100UNITS/ML 250 ML IV SCH ×2 (07:00→09:30)
[2019-06-28] MEDS: NOREPINEPHRINE 8 MG/250ML KIT 250 ML IV SCH (07:02)
[2019-06-28] MEDS: ASPirin 81 mg TAB PO SCH (10:40)
[2019-06-28] MEDS: methylPREDNISolone SOD SUCC 40 MG/ML VL IV SCH ×2 (10:40→22:07)
[2019-06-28] MEDS: PANTOPRAZOLE 40 MG/10 ML VIAL INJ IV SCH (10:40)
[2019-06-28] MEDS ORDERED: FUROSEMIDE 100 MG/10ML VIAL IV ONE (12:30)
[2019-06-28] MEDS ORDERED: DexAMETHasone SOD PHOS 4 MG/1ML SDV INJ IM ONE (12:30)
[2019-06-28] MEDS ORDERED: DexAMETHasone SOD PHOS 4 MG/1ML SDV INJ IV ONE (12:45)
[2019-06-29] VITALS (12 sets, daily range): BP systolic 126–149; BP diastolic 53–71
[2019-06-29] MEDS: ALBUTEROL SULF 2.5 MG/0.5ML(0.5%) NEB SOLN NEB SCH ×5 (00:10→23:39)
[2019-06-29] MEDS: IPRATROPIUM BROM 0.5 MG/2.5ML INH SOL NEB SCH ×5 (00:10→23:39)
[2019-06-29] MEDS: FREE WATER GT SCH ×4 (02:43→10:40)
[2019-06-29 04:05] LABS: Hematocrit 31.2 % (36.0-46.0); Hemoglobin 9.8 g/dL (12.2-16.2); Mean Corpuscular Hgb Conc. 31.5 g/dL (32.0-36.0); Mean Corpuscular Volume 88.8 fL (80.0-100.0); Platelet Count (auto) 118 10^3/uL (140-450); Red Blood Cells 3.51 10^6/uL (4.0-5.20); Red Cell Distribution Width 18.8 % (11.8-14.3); White Blood Cell 17.8 10^3/uL (4.4-10.8)
[2019-06-29 04:18] LABS: BUN/Creatinine Ratio 42.2; Calcium 8.4 mg/dL (8.5-10.1); Potassium 3.9 mmol/L (3.5-5.1)
[2019-06-29 04:20] LABS: Basophils % (manual) 0 (0.0-2.0); Blast Cells 0; Eosinophils % (manual) 0 (0-7); Metamyelocytes % 0; Myelocytes % 0; Promyelocytes % 0; Reactive Lymphocytes 0
[2019-06-29 06:05] LABS: Band Neutrophils % (manual) 7; Lymphocytes % (manual) 1 (10.0-50.0); Monocytes % (manual) 4 (0-12)
[2019-06-29] MEDS: PIPERACILLIN-TAZOB 2.25GM 50 ML IV SCH ×2 (06:59→16:36)
[2019-06-29] MEDS: METOCLOPRAMIDE HCL 5MG/ml INJ 2ml VIAL IV SCH ×4 (06:59→17:37)
[2019-06-29] MEDS: LEVOTHYROXINE SODIUM 25 MCG TAB PO SCH (07:53)
[2019-06-29] MEDS: PANTOPRAZOLE 40 MG/10 ML VIAL INJ IV SCH (10:36)
[2019-06-29] MEDS: ASPirin 81 mg TAB PO SCH (10:37)
[2019-06-29] MEDS: methylPREDNISolone SOD SUCC 40 MG/ML VL IV SCH (10:37)
[2019-06-29] MEDS: BUMETANIDE 2.5mg/10ml (0.25 mg/ml) INJ IV SCH (10:39)
[2019-06-29] MEDS: D5W 5% 1,000 ML IV SCH (16:37)
[2019-06-29] MEDS: PIPERACILLIN-TAZOB 3.375GM 100 ML IV SCH (18:00)
[2019-06-30] MEDS: METOCLOPRAMIDE HCL 5MG/ml INJ 2ml VIAL IV SCH ×5 (00:23→23:54)
[2019-06-30] MEDS: PIPERACILLIN-TAZOB 3.375GM 100 ML IV SCH ×5 (00:23→23:54)
[2019-06-30] MEDS: D5W 5% 1,000 ML IV SCH ×2 (02:50→17:41)
[2019-06-30 05:20] VITALS: BP 147/59
[2019-06-30] MEDS: ALBUTEROL SULF 2.5 MG/0.5ML(0.5%) NEB SOLN NEB SCH ×4 (06:04→23:55)
[2019-06-30] MEDS: IPRATROPIUM BROM 0.5 MG/2.5ML INH SOL NEB SCH ×4 (06:04→23:55)
[2019-06-30] MEDS: LEVOTHYROXINE SODIUM 25 MCG TAB PO SCH (06:28)
[2019-06-30 08:36] VITALS: BP 121/52
[2019-06-30] MEDS ORDERED: methylPREDNISolone SOD SUCC 40 MG/ML VL IV SCH (10:00)
[2019-06-30 10:23] LABS: Mean Corpuscular Hemoglobin 27.5 pg (28.0-32.0); Red Cell Distribution Width 19.2 % (11.8-14.3)
[2019-06-30 10:25] LABS: Hematocrit 38.2 % (36.0-46.0); Hemoglobin 11.7 g/dL (12.2-16.2); Mean Corpuscular Hgb Conc. 30.7 g/dL (32.0-36.0); Mean Corpuscular Volume 89.4 fL (80.0-100.0); Platelet Count (auto) 92 10^3/uL (140-450); Red Blood Cells 4.27 10^6/uL (4.0-5.20); White Blood Cell 25.9 10^3/uL (4.4-10.8)
[2019-06-30 10:27] LABS: Basophils % (manual) 0 (0.0-2.0); Blast Cells 0; Metamyelocytes % 0; Myelocytes % 0; Promyelocytes % 0; Reactive Lymphocytes 0
[2019-06-30] MEDS: PANTOPRAZOLE 40 MG/10 ML VIAL INJ IV SCH (10:29)
[2019-06-30] MEDS: BUMETANIDE 2.5mg/10ml (0.25 mg/ml) INJ IV SCH (10:30)
[2019-06-30] MEDS: ASPirin 81 mg TAB PO SCH (10:37)
[2019-06-30 10:41] LABS: Band Neutrophils % (manual) 3; Eosinophils % (manual) 3 (0-7); Lymphocytes % (manual) 4 (10.0-50.0); Monocytes % (manual) 6 (0-12)
[2019-06-30 10:42] LABS: Albumin 2.3 g/dL (3.4-5.0); Calcium 8.2 mg/dL (8.5-10.1); Potassium 3.2 mmol/L (3.5-5.1)
[2019-06-30 10:45] LABS: BUN/Creatinine Ratio 32.6; Bilirubin, Total 0.9 mg/dL (0.2-1.0); Total Protein 5.6 g/dL (6.4-8.2)
[2019-06-30 13:19] VITALS: BP 144/60
[2019-06-30 16:44] VITALS: BP 115/53
[2019-06-30] MEDS ORDERED: POTASSIUM EFFERVESENT TAB 25 MEQ PO ONE (21:30)
[2019-06-30 22:00] VITALS: BP 120/53
[2019-07-01 05:22] VITALS: BP 120/52
[2019-07-01] MEDS: LEVOTHYROXINE SODIUM 25 MCG TAB PO SCH (05:45)
[2019-07-01] MEDS: PIPERACILLIN-TAZOB 3.375GM 100 ML IV SCH ×4 (05:45→23:28)
[2019-07-01] MEDS: METOCLOPRAMIDE HCL 5MG/ml INJ 2ml VIAL IV SCH ×4 (05:46→23:28)
[2019-07-01] MEDS: D5W 5% 1,000 ML IV SCH ×2 (05:50→18:50)
[2019-07-01] MEDS: IPRATROPIUM BROM 0.5 MG/2.5ML INH SOL NEB SCH ×3 (05:56→18:38)
[2019-07-01] MEDS: ALBUTEROL SULF 2.5 MG/0.5ML(0.5%) NEB SOLN NEB SCH ×3 (05:56→18:38)
[2019-07-01 08:56] VITALS: BP 122/55
[2019-07-01 09:51] LABS: Basophils # (auto) 0.1 10 ^3/uL (0-0.2); Basophils % (auto) 0.7 % (0.0-2.0); Eosinophils # (auto) 0.4 10 ^3/uL (0-0.8); Lymphocytes # (auto) 0.9 10 ^3/uL (0.4-5.4); Lymphocytes % (auto) 4.5 % (10.0-50.0); Mean Corpuscular Hemoglobin 27.9 pg (28.0-32.0); Mean Corpuscular Volume 91.4 fL (80.0-100.0); Neutrophils # (auto) 17.1 10 ^3/uL (1.6-8.6); Nucleated Red Blood Cells % 0.1 %; White Blood Cell 19.7 10^3/uL (4.4-10.8)
[2019-07-01 09:52] LABS: Eosinophils % (auto) 2.2 % (0.0-7.0); Hematocrit 36.5 % (36.0-46.0); Hemoglobin 11.2 g/dL (12.2-16.2); Mean Corpuscular Hgb Conc. 30.6 g/dL (32.0-36.0); Monocytes # (auto) 1.1 10 ^3/uL (0-1.3); Monocytes % (auto) 5.6 % (0.0-12.0); Platelet Count (auto) 73 10^3/uL (140-450); Red Cell Distribution Width 19.3 % (11.8-14.3)
[2019-07-01 09:59] LABS: Albumin 2.1 g/dL (3.4-5.0); Calcium 7.8 mg/dL (8.5-10.1)
[2019-07-01] MEDS: PANTOPRAZOLE 40 MG/10 ML VIAL INJ IV SCH (10:00)
[2019-07-01] MEDS: methylPREDNISolone SOD SUCC 40 MG/ML VL IV SCH (10:00)
[2019-07-01 10:02] LABS: Bilirubin, Total 0.8 mg/dL (0.2-1.0); Total Protein 5.5 g/dL (6.4-8.2)
[2019-07-01] MEDS: ASPirin 81 mg TAB PO SCH (10:05)
[2019-07-01] MEDS: BUMETANIDE 2.5mg/10ml (0.25 mg/ml) INJ IV SCH (10:05)
[2019-07-01 12:41] VITALS: BP 117/51
[2019-07-01 16:54] VITALS: BP 146/67
[2019-07-01 21:59] VITALS: BP 121/56
[2019-07-01 22:13] VITALS: BP 121/56
[2019-07-02] MEDS: IPRATROPIUM BROM 0.5 MG/2.5ML INH SOL NEB SCH ×4 (00:32→18:18)
[2019-07-02] MEDS: ALBUTEROL SULF 2.5 MG/0.5ML(0.5%) NEB SOLN NEB SCH ×4 (00:32→18:18)
[2019-07-02 05:15] VITALS: BP 131/64
[2019-07-02] MEDS: LEVOTHYROXINE SODIUM 25 MCG TAB PO SCH (05:49)
[2019-07-02] MEDS: PIPERACILLIN-TAZOB 3.375GM 100 ML IV SCH ×2 (05:49→12:00)
[2019-07-02] MEDS: ACETAMINOPHEN 500 MG TAB PO PRN (05:54)
[2019-07-02] MEDS: METOCLOPRAMIDE HCL 5MG/ml INJ 2ml VIAL IV SCH (05:56)
[2019-07-02 06:36] LABS: Eosinophils # (auto) 0.5 10 ^3/uL (0-0.8); Hemoglobin 10.2 g/dL (12.2-16.2); Lymphocytes # (auto) 0.8 10 ^3/uL (0.4-5.4); Monocytes % (auto) 6.1 % (0.0-12.0); Red Cell Distribution Width 18.7 % (11.8-14.3)
[2019-07-02 06:42] LABS: Basophils # (auto) 0 10 ^3/uL (0-0.2); Basophils % (auto) 0.2 % (0.0-2.0); Eosinophils % (auto) 2.4 % (0.0-7.0); Hematocrit 32.3 % (36.0-46.0); Lymphocytes % (auto) 4.1 % (10.0-50.0); Mean Corpuscular Hemoglobin 28.5 pg (28.0-32.0); Mean Corpuscular Hgb Conc. 31.7 g/dL (32.0-36.0); Mean Corpuscular Volume 89.9 fL (80.0-100.0); Monocytes # (auto) 1.2 10 ^3/uL (0-1.3); Neutrophils # (auto) 16.9 10 ^3/uL (1.6-8.6); Neutrophils % (auto) 87.2 % (37.0-80.0); Platelet Count (auto) 50 10^3/uL (140-450); Red Blood Cells 3.59 10^6/uL (4.0-5.20); White Blood Cell 19.3 10^3/uL (4.4-10.8)
[2019-07-02 07:08] LABS: BUN/Creatinine Ratio 24.8; Calcium 7.8 mg/dL (8.5-10.1)
[2019-07-02 07:11] LABS: Bilirubin, Total 0.7 mg/dL (0.2-1.0); Total Protein 5.2 g/dL (6.4-8.2)
[2019-07-02 09:00] VITALS: BP 132/54
[2019-07-02] MEDS: ASPirin 81 mg TAB PO SCH (09:56)
[2019-07-02] MEDS: FLUCONAZOLE 100 MG TAB PO SCH (09:56)
[2019-07-02] MEDS: BUMETANIDE 2.5mg/10ml (0.25 mg/ml) INJ IV SCH (09:57)
[2019-07-02] MEDS: methylPREDNISolone SOD SUCC 40 MG/ML VL IV SCH (09:57)
[2019-07-02] MEDS: PANTOPRAZOLE 40 MG/10 ML VIAL INJ IV SCH (09:57)
[2019-07-02] MEDS: D5W 5% 1,000 ML IV SCH (09:58)
[2019-07-02] MEDS ORDERED: POTASSIUM CHL 20 Meq TABLET PO ONE (10:45)
[2019-07-02] MEDS: Ensure Enlive Chocolate 8oz Bottle PO SCH ×2 (12:00→18:40)
[2019-07-02 12:14] VITALS: BP 126/54
[2019-07-02 16:57] VITALS: BP 115/59
[2019-07-02 22:00] VITALS: BP 116/58
[2019-07-03] MEDS: D5W 5% 1,000 ML IV SCH ×2 (00:07→14:06)
[2019-07-03] MEDS: IPRATROPIUM BROM 0.5 MG/2.5ML INH SOL NEB SCH ×4 (00:17→18:20)
[2019-07-03] MEDS: ALBUTEROL SULF 2.5 MG/0.5ML(0.5%) NEB SOLN NEB SCH ×4 (00:17→18:20)
[2019-07-03 05:00] VITALS: BP 138/61
[2019-07-03 05:57] LABS: Basophils # (auto) 0 10 ^3/uL (0-0.2); Basophils % (auto) 0.2 % (0.0-2.0); Eosinophils # (auto) 0.3 10 ^3/uL (0-0.8); Eosinophils % (auto) 1.6 % (0.0-7.0); Neutrophils # (auto) 16.3 10 ^3/uL (1.6-8.6); Platelet Count (auto) 59 10^3/uL (140-450)
[2019-07-03 06:00] LABS: Hematocrit 32.2 % (36.0-46.0); Hemoglobin 10.4 g/dL (12.2-16.2); Lymphocytes # (auto) 0.9 10 ^3/uL (0.4-5.4); Lymphocytes % (auto) 4.6 % (10.0-50.0); Mean Corpuscular Hemoglobin 28.7 pg (28.0-32.0); Mean Corpuscular Hgb Conc. 32.3 g/dL (32.0-36.0); Mean Corpuscular Volume 88.9 fL (80.0-100.0); Monocytes # (auto) 1.1 10 ^3/uL (0-1.3); Monocytes % (auto) 5.9 % (0.0-12.0); Neutrophils % (auto) 87.7 % (37.0-80.0); Red Blood Cells 3.62 10^6/uL (4.0-5.20); Red Cell Distribution Width 18.8 % (11.8-14.3); White Blood Cell 18.6 10^3/uL (4.4-10.8)
[2019-07-03 06:18] LABS: Potassium 3.6 mmol/L (3.5-5.1)
[2019-07-03 06:24] LABS: BUN/Creatinine Ratio 26.3; Bilirubin, Total 0.6 mg/dL (0.2-1.0); Calcium 7.9 mg/dL (8.5-10.1); Total Protein 5.2 g/dL (6.4-8.2)
[2019-07-03] MEDS: LEVOTHYROXINE SODIUM 25 MCG TAB PO SCH (06:24)
[2019-07-03 08:00] VITALS: BP 138/58
[2019-07-03 08:52] VITALS: BP 138/58
[2019-07-03] MEDS: Ensure Enlive Chocolate 8oz Bottle PO SCH ×3 (09:56→18:24)
[2019-07-03] MEDS: methylPREDNISolone SOD SUCC 40 MG/ML VL IV SCH (09:57)
[2019-07-03] MEDS: PANTOPRAZOLE 40 MG/10 ML VIAL INJ IV SCH (09:57)
[2019-07-03] MEDS: BUMETANIDE 2.5mg/10ml (0.25 mg/ml) INJ IV SCH (09:57)
[2019-07-03] MEDS: FLUCONAZOLE 100 MG TAB PO SCH (09:57)
[2019-07-03] MEDS: POTASSIUM CHL 20 Meq TABLET PO SCH (09:58)
[2019-07-03 13:00] VITALS: BP 116/50
[2019-07-03 16:44] VITALS: BP 145/65
[2019-07-03 21:16] VITALS: BP 122/53
[2019-07-04] MEDS: ALBUTEROL SULF 2.5 MG/0.5ML(0.5%) NEB SOLN NEB SCH ×4 (00:09→19:10)
[2019-07-04] MEDS: IPRATROPIUM BROM 0.5 MG/2.5ML INH SOL NEB SCH ×4 (00:09→19:10)
[2019-07-04 05:31] VITALS: BP 136/65
[2019-07-04] MEDS: LEVOTHYROXINE SODIUM 25 MCG TAB PO SCH (06:20)
[2019-07-04 06:25] LABS: Hemoglobin 10.8 g/dL (12.2-16.2); Red Cell Distribution Width 18.7 % (11.8-14.3)
[2019-07-04 06:27] LABS: Hematocrit 34.6 % (36.0-46.0); Mean Corpuscular Hemoglobin 28.8 pg (28.0-32.0); Mean Corpuscular Hgb Conc. 31.3 g/dL (32.0-36.0); Mean Corpuscular Volume 91.9 fL (80.0-100.0); Platelet Count (auto) 65 10^3/uL (140-450); Red Blood Cells 3.77 10^6/uL (4.0-5.20)
[2019-07-04 06:30] LABS: Basophils % (manual) 0 (0.0-2.0); Blast Cells 0; Metamyelocytes % 0; Myelocytes % 0; Promyelocytes % 0; Reactive Lymphocytes 0
[2019-07-04 06:55] LABS: Calcium 8.1 mg/dL (8.5-10.1); Potassium 4.6 mmol/L (3.5-5.1)
[2019-07-04 06:58] LABS: Band Neutrophils % (manual) 1; Eosinophils % (manual) 1 (0-7); Lymphocytes % (manual) 2 (10.0-50.0); Monocytes % (manual) 7 (0-12)
[2019-07-04 07:01] LABS: Albumin 2.1 g/dL (3.4-5.0); BUN/Creatinine Ratio 27.6; Bilirubin, Total 0.6 mg/dL (0.2-1.0); Total Protein 5.2 g/dL (6.4-8.2)
[2019-07-04] MEDS: Ensure Enlive Chocolate 8oz Bottle PO SCH ×3 (08:00→18:45)
[2019-07-04 09:00] VITALS: BP 130/70
[2019-07-04] MEDS: PANTOPRAZOLE 40 MG/10 ML VIAL INJ IV SCH (10:19)
[2019-07-04] MEDS: POTASSIUM CHL 20 Meq TABLET PO SCH (10:19)
[2019-07-04] MEDS: FLUCONAZOLE 100 MG TAB PO SCH (10:19)
[2019-07-04] MEDS: BUMETANIDE 2.5mg/10ml (0.25 mg/ml) INJ IV SCH (10:19)
[2019-07-04] MEDS: PIPERACILLIN-TAZOB 3.375GM 100 ML IV SCH ×2 (12:07→18:45)
[2019-07-04 13:00] VITALS: BP 132/63
[2019-07-04 17:17] VITALS: BP 150/74
[2019-07-04 22:00] VITALS: BP 143/73
[2019-07-05] MEDS: PIPERACILLIN-TAZOB 3.375GM 100 ML IV SCH ×4 (00:38→18:32)
[2019-07-05] MEDS: IPRATROPIUM BROM 0.5 MG/2.5ML INH SOL NEB SCH ×4 (00:54→18:27)
[2019-07-05] MEDS: ALBUTEROL SULF 2.5 MG/0.5ML(0.5%) NEB SOLN NEB SCH ×4 (00:54→18:26)
[2019-07-05 05:00] VITALS: BP 129/62
[2019-07-05] MEDS: LEVOTHYROXINE SODIUM 25 MCG TAB PO SCH (05:36)
[2019-07-05 06:49] LABS: Basophils # (auto) 0 10 ^3/uL (0-0.2); Basophils % (auto) 0.2 % (0.0-2.0); Eosinophils # (auto) 0.3 10 ^3/uL (0-0.8); Eosinophils % (auto) 1.6 % (0.0-7.0); Hematocrit 35.2 % (36.0-46.0); Hemoglobin 11.3 g/dL (12.2-16.2); Lymphocytes # (auto) 0.5 10 ^3/uL (0.4-5.4); Lymphocytes % (auto) 3.2 % (10.0-50.0); Mean Corpuscular Hemoglobin 28.7 pg (28.0-32.0); Mean Corpuscular Hgb Conc. 32.1 g/dL (32.0-36.0); Mean Corpuscular Volume 89.5 fL (80.0-100.0); Monocytes # (auto) 1.1 10 ^3/uL (0-1.3); Monocytes % (auto) 7.1 % (0.0-12.0); Neutrophils % (auto) 87.9 % (37.0-80.0); Nucleated Red Blood Cells % 0.2 %; Platelet Count (auto) 68 10^3/uL (140-450); Red Blood Cells 3.93 10^6/uL (4.0-5.20); Red Cell Distribution Width 19.3 % (11.8-14.3)
[2019-07-05 07:05] LABS: Potassium 4.5 mmol/L (3.5-5.1)
[2019-07-05 07:19] LABS: Albumin 2.2 g/dL (3.4-5.0); BUN/Creatinine Ratio 23.1; Bilirubin, Total 0.8 mg/dL (0.2-1.0); Calcium 8.5 mg/dL (8.5-10.1); Total Protein 5.9 g/dL (6.4-8.2)
[2019-07-05] MEDS: Ensure Enlive Chocolate 8oz Bottle PO SCH ×3 (08:00→18:32)
[2019-07-05 09:00] VITALS: BP 125/64
[2019-07-05] MEDS: FLUCONAZOLE 100 MG TAB PO SCH (09:43)
[2019-07-05] MEDS: POTASSIUM CHL 20 Meq TABLET PO SCH (09:43)
[2019-07-05] MEDS: PANTOPRAZOLE 40 MG/10 ML VIAL INJ IV SCH (09:44)
[2019-07-05] MEDS: BUMETANIDE 2.5mg/10ml (0.25 mg/ml) INJ IV SCH (09:44)
[2019-07-05 13:00] VITALS: BP 115/52
[2019-07-05] MEDS ORDERED: IOHEXOL 300 MG/ML 100ML BOTTLE IJ ONE (13:54)
[2019-07-05 17:00] VITALS: BP 117/56
[2019-07-05 22:00] VITALS: BP 114/56
[2019-07-06] MEDS: IPRATROPIUM BROM 0.5 MG/2.5ML INH SOL NEB SCH ×4 (00:16→18:27)
[2019-07-06] MEDS: ALBUTEROL SULF 2.5 MG/0.5ML(0.5%) NEB SOLN NEB SCH ×4 (00:16→18:27)
[2019-07-06] MEDS: PIPERACILLIN-TAZOB 3.375GM 100 ML IV SCH ×4 (00:26→17:30)
[2019-07-06 05:00] VITALS: BP 119/53
[2019-07-06] MEDS: LEVOTHYROXINE SODIUM 25 MCG TAB PO SCH (06:53)
[2019-07-06] MEDS: Ensure Enlive Chocolate 8oz Bottle PO SCH ×3 (08:00→17:31)
[2019-07-06 09:00] VITALS: BP 126/57
[2019-07-06] MEDS: POTASSIUM CHL 20 Meq TABLET PO SCH (09:32)
[2019-07-06] MEDS: PANTOPRAZOLE 40 MG/10 ML VIAL INJ IV SCH (09:32)
[2019-07-06] MEDS: FLUCONAZOLE 100 MG TAB PO SCH (09:32)
[2019-07-06] MEDS: BUMETANIDE 2.5mg/10ml (0.25 mg/ml) INJ IV SCH (09:33)
[2019-07-06 13:00] VITALS: BP 122/56
[2019-07-06 17:00] VITALS: BP 116/96
[2019-07-06 22:00] VITALS: BP_SYST 121; BP_SYST 212; BP_DIAS 44
[2019-07-07] VITALS (7 sets, daily range): BP systolic 100–116; BP diastolic 44–51
[2019-07-07] MEDS: PIPERACILLIN-TAZOB 3.375GM 100 ML IV SCH ×4 (00:08→18:45)
[2019-07-07] MEDS: ALBUTEROL SULF 2.5 MG/0.5ML(0.5%) NEB SOLN NEB SCH ×4 (00:25→19:29)
[2019-07-07] MEDS: IPRATROPIUM BROM 0.5 MG/2.5ML INH SOL NEB SCH ×4 (00:25→19:29)
[2019-07-07] MEDS: LEVOTHYROXINE SODIUM 25 MCG TAB PO SCH (05:59)
[2019-07-07 07:09] LABS: Immunoglobulin G, Serum 912 mg/dL (586-1602)
[2019-07-07] MEDS: BUMETANIDE 2.5mg/10ml (0.25 mg/ml) INJ IV SCH ×2 (10:00→11:27)
[2019-07-07] MEDS ORDERED: LIDOCAINE HCL 2 %PF INJ 10ML AMP IJ ONE (11:00)
[2019-07-07] MEDS: FLUCONAZOLE 100 MG TAB PO SCH (11:27)
[2019-07-07] MEDS: PANTOPRAZOLE 40 MG/10 ML VIAL INJ IV SCH (11:27)
[2019-07-07] MEDS: POTASSIUM CHL 20 Meq TABLET PO SCH (11:28)
[2019-07-07] MEDS: Ensure Enlive Chocolate 8oz Bottle PO SCH ×3 (11:28→18:45)
[2019-07-08] MEDS: IPRATROPIUM BROM 0.5 MG/2.5ML INH SOL NEB SCH ×3 (00:51→12:40)
[2019-07-08] MEDS: ALBUTEROL SULF 2.5 MG/0.5ML(0.5%) NEB SOLN NEB SCH ×3 (00:51→12:40)
[2019-07-08 05:00] VITALS: BP 116/47
[2019-07-08 05:49] LABS: Basophils # (auto) 0.1 10 ^3/uL (0-0.2); Basophils % (auto) 0.9 % (0.0-2.0); Eosinophils # (auto) 0.5 10 ^3/uL (0-0.8); Eosinophils % (auto) 5.8 % (0.0-7.0); Hematocrit 27.5 % (36.0-46.0); Lymphocytes # (auto) 0.8 10 ^3/uL (0.4-5.4); Mean Corpuscular Hgb Conc. 32.8 g/dL (32.0-36.0); Mean Corpuscular Volume 88.4 fL (80.0-100.0); Monocytes # (auto) 0.4 10 ^3/uL (0-1.3); Monocytes % (auto) 5.2 % (0.0-12.0); Neutrophils # (auto) 6.6 10 ^3/uL (1.6-8.6); Neutrophils % (auto) 79.1 % (37.0-80.0); Nucleated Red Blood Cells % 0.1 %; Platelet Count (auto) 46 10^3/uL (140-450); Red Blood Cells 3.11 10^6/uL (4.0-5.20); Red Cell Distribution Width 18.9 % (11.8-14.3); White Blood Cell 8.4 10^3/uL (4.4-10.8)
[2019-07-08] MEDS: PIPERACILLIN-TAZOB 3.375GM 100 ML IV SCH ×2 (05:55)
[2019-07-08] MEDS: LEVOTHYROXINE SODIUM 25 MCG TAB PO SCH (06:00)
[2019-07-08 06:07] LABS: Potassium 3.8 mmol/L (3.5-5.1)
[2019-07-08 06:10] LABS: Albumin 1.5 g/dL (3.4-5.0); BUN/Creatinine Ratio 22.1; Calcium 7.9 mg/dL (8.5-10.1)
[2019-07-08 06:12] LABS: Bilirubin, Total 0.6 mg/dL (0.2-1.0); Total Protein 4.9 g/dL (6.4-8.2)
[2019-07-08 08:34] VITALS: BP 112/50
[2019-07-08] MEDS: Ensure Enlive Chocolate 8oz Bottle PO SCH (09:39)
[2019-07-08] MEDS: BUMETANIDE 2.5mg/10ml (0.25 mg/ml) INJ IV SCH (09:39)
[2019-07-08] MEDS: FLUCONAZOLE 100 MG TAB PO SCH (09:40)
[2019-07-08] MEDS: PANTOPRAZOLE 40 MG/10 ML VIAL INJ IV SCH (09:40)
[2019-07-08] MEDS: POTASSIUM CHL 20 Meq TABLET PO SCH (09:40)
== END 2019-07-08 11:08 | disposition home or self-care (01) | DRG 870 ==
LOC: EDBD 15:10 → ER 15:10 → TELE 15:11 → DOU IN ICU 19:04 → ICU WEST 06-19 18:30 → TELE-CENTR 06-29 06:17
PROVIDERS: ADMIT Internal Medicine; ATTEND Internal Medicine
PROC: 5A1955Z Respiratory Ventilation, Greater than 96 Consecutive Hours (ICD-10-PCS; principal; 2019-06-17)
PROC: 0BH17EZ Insertion of Endotracheal Airway into Trachea, Via Natural or Artificial Opening (ICD-10-PCS; 2019-06-17)
PROC: 4A133B1 Monitoring of Arterial Pressure, Peripheral, Percutaneous Approach (ICD-10-PCS; 2019-06-19)
PROC: 02HV33Z Insertion of Infusion Device into Superior Vena Cava, Percutaneous Approach (ICD-10-PCS; 2019-06-19)
PROC: B548ZZA Ultrasonography of Superior Vena Cava, Guidance (ICD-10-PCS; 2019-06-19)
PROC: 4A133J1 Monitoring of Arterial Pulse, Peripheral, Percutaneous Approach (ICD-10-PCS; 2019-06-19)
PROC: 0B9D8ZX Drainage of Right Middle Lung Lobe, Via Natural or Artificial Opening Endoscopic, Diagnostic (ICD-10-PCS; 2019-06-22)
PROC: 30233N1 Transfusion of Nonautologous Red Blood Cells into Peripheral Vein, Percutaneous Approach (ICD-10-PCS; 2019-06-22)
PROC: 0W993ZZ Drainage of Right Pleural Cavity, Percutaneous Approach (ICD-10-PCS; 2019-06-27)
DX: A41.9 Sepsis, unspecified organism (principal); J18.9 Pneumonia, unspecified organism; J96.01 Acute respiratory failure with hypoxia; G93.41 Metabolic encephalopathy; R65.21 Severe sepsis with septic shock; N17.0 Acute kidney failure with tubular necrosis; G93.1 Anoxic brain damage, not elsewhere classified; E87.1 Hypo-osmolality and hyponatremia; C34.90 Malignant neoplasm of unspecified part of unspecified bronchus or lung; E87.0 Hyperosmolality and hypernatremia; G47.33 Obstructive sleep apnea (adult) (pediatric); G52.9 Cranial nerve disorder, unspecified; I10 Essential (primary) hypertension; I25.10 Atherosclerotic heart disease of native coronary artery without angina pectoris; D64.9 Anemia, unspecified; E88.09 Other disorders of plasma-protein metabolism, not elsewhere classified; E87.6 Hypokalemia; Z79.899 Other long term (current) drug therapy; Z79.82 Long term (current) use of aspirin; Z95.1 Presence of aortocoronary bypass graft; Z82.3 Family history of stroke; Z82.49 Family history of ischemic heart disease and other diseases of the circulatory system; Z91.018 Allergy to other foods; Y92.129 Unspecified place in nursing home as the place of occurrence of the external cause; R58 Hemorrhage, not elsewhere classified; Z20.828 Contact with and (suspected) exposure to other viral communicable diseases; I27.20 Pulmonary hypertension, unspecified; I70.0 Atherosclerosis of aorta; J43.9 Emphysema, unspecified; M43.17 Spondylolisthesis, lumbosacral region; Z92.21 Personal history of antineoplastic chemotherapy; Z87.891 Personal history of nicotine dependence
CPT/HCPCS: 32555; 36415; 36600; 70450; 71045; 71250; 74177; 76775; 76856; 80048; 80053; 81001; 82232; 82270; 82570; 82728; 82784; 82805; 83605; 83615; 83735; 83880; 83883; 83986; 84156; 84300; 84484; 85007; 85014; 85018; 85025; 85027; 85379; 85610; 85730; 86141; 86304; 86334; 86850; 86900; 86901; 86920; 87040; 87070; 87081; 87086; 87088; 87205; 87804; 87880; 89051; 92610; 93005; 93306; 93970; 94002; 94003; 94640; 95819; 96365; 96368; 97110; 97116; 97163; 97530; A4618; C9113; G0378; J0171; J0330; J0696; J1100; J2250; J2543; J3480; P9047

== ENCOUNTER 2019-07-16 15:45 | Inpatient (IN) | payer MEDICARE, OTHER ==
[~2019-07-16] VITALS: Ht 167.6 cm; Wt 88.5 kg
[~2019-07-16 15:45] MED LIST changes: +AMIO200T33 PO; +AML5T PO; +ATOR20TA50 PO; +HCTZ25T PO; +RIVA20TA PO
[2019-07-16] MEDS ORDERED: cefTRIAXone 1GM/50ML D5W 50 ML IV ONE ×2 (17:08→17:15)
[2019-07-16] MEDS ORDERED: AZITHROMYCIN 500MG/ 250ML 250 ML IV ONE (17:15)
[2019-07-16 17:28] LABS: Hemoglobin 8.3 g/dL (12.2-16.2)
[2019-07-16 17:29] LABS: Mean Corpuscular Hemoglobin 29.1 pg (28.0-32.0); Mean Corpuscular Volume 91.2 fL (80.0-100.0); Platelet Count (auto) 113 10^3/uL (140-450); Red Blood Cells 2.85 10^6/uL (4.0-5.20); White Blood Cell 9.5 10^3/uL (4.4-10.8)
[2019-07-16 17:31] LABS: Red Cell Distribution Width 21.3 % (11.8-14.3)
[2019-07-16 17:32] LABS: Basophils % (manual) 0 (0.0-2.0); Blast Cells 0; Metamyelocytes % 0; Myelocytes % 0; Promyelocytes % 0; Reactive Lymphocytes 0
[2019-07-16 17:37] LABS: Albumin 1.4 g/dL (3.4-5.0); Anion Gap 8 (5-15); Blood Urea Nitrogen 34 mg/dL (7-18); Calcium 6.8 mg/dL (8.5-10.1); Carbon Dioxide 22 mmol/L (21-32); Chloride 107 mmol/L (98-107); Glucose 173 mg/dL (74-106); Magnesium 2.3 mg/dL (1.6-2.6); Potassium 4.9 mmol/L (3.5-5.1); Sodium 137 mmol/L (136-145)
[2019-07-16 17:40] LABS: Lactic Acid w/Reflex 2.9 mmol/L (0.4-2.0)
[2019-07-16 17:42] LABS: Alanine Aminotransferase 8 U/L (13-56); Alkaline Phosphatase 67 U/L (45-117); Aspartate Aminotransferase 4 U/L (15-37); BUN/Creatinine Ratio 23.6; Bilirubin, Total 0.5 mg/dL (0.2-1.0); GFR African American 45 mL/min; GFR Non-African American 37 mL/min; Lactate Dehydrogenase 212 U/L (84-246); Total Protein 5.8 g/dL (6.4-8.2)
[2019-07-16 17:43] LABS: Band Neutrophils % (manual) 7; Eosinophils % (manual) 3 (0-7); Lymphocytes % (manual) 8 (10.0-50.0); Monocytes % (manual) 9 (0-12)
[2019-07-16 18:13] LABS: Urine Bacteria NONE SEEN /hpf (None Seen); Urine Blood TRACE /uL (Negative); Urine Hyaline Cast FEW /lpf (0 - 2); Urine Mucus FEW (None Seen); Urine Specific Gravity 1.017 (1.001-1.035); Urine WBC 2 /hpf (0 - 5)
[2019-07-16] MEDS ORDERED: ENOXAPARIN SOD 40 MG/0.4 ML SYRINGE SC ONE (21:15)
[2019-07-16] MEDS ORDERED: MORPHINE SULF INJ 2 MG/ML SYRINGE 1ML IV PRN (21:45)
[2019-07-16] MEDS ORDERED: NITROGLYCERIN 0.4 MG SL TAB SL PRN (21:45)
[2019-07-16] MEDS: FUROSEMIDE 40 MG/4 ML VIAL IV SCH (22:35)
[2019-07-17] VITALS (54 sets, daily range): BP systolic 86–124; BP diastolic 40–67
[2019-07-17] MEDS ORDERED: ACETAMINOPHEN 500 MG TAB PO PRN
[2019-07-17] MEDS ORDERED: ONDANSETRON HCL 4 MG/2 ML VIAL IV PRN
--- NOTE | 2019-07-17 00:20 | NUR ---
Pt being admitted to ICU CORAL KEYES admitted to ICU via gurney on apparel stock checker, and portable 02. Patient transfered to bed, connected to ICU monitoring and oxygen via 10L nonrebreather, and weighed by bedscale. Patient oriented to LILIA PRINCE,primary RN, unit, room, bed, and unit policies regarding patient care and visiting hours. Right upper midline - clean/dry/intact. Moody hung to gravity. Skin assessed, wound pictures taken and dressed with optifoams. Patient refused bath at this time. All questions and concerns addressed, patient verbalized understanding. Bed in lowest position, side rails up x2, call light within reach. Will continue to monitor.
[2019-07-17] MEDS: PIPERACILLIN-TAZOB 3.375GM 100 ML IV SCH ×4 (00:30→18:04)
--- NOTE | 2019-07-17 05:30 | NUR ---
SPOKE WITH GRAND DAUGHTER (ELVIRA) PASSWORD VERIFIED. UPDATED GRAND DAUGHTER ON PATIENT STATUS. ALL QUESTIONS ANSWERED AND ADDRESSED. Addendum: 07/17/19 at 0720 by LILIA PRINCE RN RN DAUGHTER REQUESTED TO UPDATED HER AFTER MD ROUNDS.
--- NOTE | 2019-07-17 07:19 | NUR ---
END OF SHIFT REPORT GIVEN TO DAY SHIFT RN. CARE ENDORSED.
--- NOTE | 2019-07-17 07:30 | NUR ---
REPORT REPORT RECEIVED FROM NIGHT RNDELONTE. PT IN ISOLATION FOR R/O COVID 19. VISIBLE THROUGH GLASS SLIDING DOORS. PT RESTING IN BED WITH EYES CLOSED, WITH RR 31 AND O2 SAT 90% WITH PT ON NRB MASK AT 10 L/M. CONTINUE TO MONITOR.
--- NOTE | 2019-07-17 08:15 | NUR ---
PT WAS PLACED ON HIGH FLOW NC ON 50LPM ON 100% FIO2 DUE TO INCREASED WOB AND SPO2 DROPPING TO 88% ON NRB. MESHA JARRETT MADE AWARE.
--- NOTE | 2019-07-17 08:25 | NUR ---
ASSESSMENT PT IN ISOLATION FOR R/O COVID 19. PT OPENS EYES TO NAME AND FOLLOWS SIMPLE COMMANDS. PT IS APPROPRIATE. HELPS TO TURN IN BED BUT WEAK. GENERALLY WEAK BUT LEGS WEAKER THAN ARMS. ON NRB MASK AT 10 L/M WITH O2 SATS OF 88% AND RR UP TO 42. HAD CALLED RT AND DOMINGA RT, IN ROOM WITH ME. PT CHANGED TO HIGH FLOW O2 AT 100% FIO2 WITH A 50 LITER FLOW. LUNGS CLEAR ON THE LEFT AND DIMINISHED ON THE RIGHT. TELE ST [address] IN LEADS I, II, AND AVF. +2 PITTING EDEMA NOTED TO BOTH ANKLES. PT REPOSITIONED FOR COMFORT. INCONTINENT OF SMALL AMOUNT OF LOOSE LIQUID LIGHT BROWN BM. PERICARE PROVIDED AND CAIR PAD CHANGED. MENDOZA CATHETER DRAINING CLEAR YELLOW URINE. SKIN TEARS NOTED TO MIDLINE SACRUM, BOTH BUTTOCKS AND INNER RIGHT THIGH, ALL WITH PINK WOUND BEDS AND OPTIFOAM DRESSINGS IN PLACE. MIDLINE TO RUE, SITE BENIGN. RAILS UP X4 FOR PT SAFETY AND CALL LIGHT WITHIN REACH OF PT. CONTINUE TO MONITOR.
[2019-07-17] MEDS: FUROSEMIDE 40 MG/4 ML VIAL IV SCH ×2 (10:30→18:05)
--- NOTE | 2019-07-17 11:10 | NUR ---
FAMILY/MD RETURNED PHONE CALL FROM PT'S GRANDDAUGHTER, ELVIRA. [phone]. I UPDATED HER ON THE PT'S CURRENT CONDITION AND ORDERS. SHE ASKED ABOUT WHETHER A SWEET POTATO DISINTEGRATOR IS SEEING THE PT AND WHETHER A THORACENTESIS IS ORDERED. NO ORDERS CURRENTLY FOR EITHER. WILL TRY TO CONTACT DR SULLIVAN REGARDING THESE THINGS AND ASK HIM TO CALL PT'S GRANDDAUGHTER.
--- NOTE | 2019-07-17 11:30 | NUR ---
SPOKE WITH DR SULLIVAN REGARDING FAMILY'S CONCERNS. ORDERS RECEIVED
--- NOTE | 2019-07-17 11:41 | NUR ---
CALLED AND SPOKE WITH PT'S GRANDDAUGHTER AND UPDATED HER ON ORDERS FROM DR SULLIVAN.
--- NOTE | 2019-07-17 13:15 | NUR ---
CHRISTIAN, IT TECHNICAL ARCHITECT, INFORMED BY LAB THAT PT'S COVID 19 TEST IS NEGATIVE. PT INFORMED AND TAKEN OUT OF ISOLATION.
[2019-07-17 13:30] LABS: Basophils # (auto) 0.1 10 ^3/uL (0-0.2); Basophils % (auto) 0.7 % (0.0-2.0); Eosinophils # (auto) 0.2 10 ^3/uL (0-0.8); Eosinophils % (auto) 2.8 % (0.0-7.0); Hematocrit 27.2 % (36.0-46.0); Hemoglobin 8.6 g/dL (12.2-16.2); Lymphocytes # (auto) 0.4 10 ^3/uL (0.4-5.4); Lymphocytes % (auto) 5.6 % (10.0-50.0); Mean Corpuscular Hgb Conc. 31.6 g/dL (32.0-36.0); Mean Corpuscular Volume 91.6 fL (80.0-100.0); Monocytes # (auto) 0.2 10 ^3/uL (0-1.3); Monocytes % (auto) 3.1 % (0.0-12.0); Neutrophils # (auto) 6.4 10 ^3/uL (1.6-8.6); Neutrophils % (auto) 87.8 % (37.0-80.0); Nucleated Red Blood Cells % 0.3 %; Platelet Count (auto) 101 10^3/uL (140-450); Red Blood Cells 2.97 10^6/uL (4.0-5.20); Red Cell Distribution Width 21.3 % (11.8-14.3); White Blood Cell 7.3 10^3/uL (4.4-10.8)
[2019-07-17 13:47] LABS: Albumin 1.4 g/dL (3.4-5.0); Calcium 7.2 mg/dL (8.5-10.1); Potassium 4.3 mmol/L (3.5-5.1)
[2019-07-17 13:50] LABS: BUN/Creatinine Ratio 21.5; Bilirubin, Total 0.6 mg/dL (0.2-1.0); Total Protein 5.9 g/dL (6.4-8.2)
--- NOTE | 2019-07-17 14:30 | NUR ---
REPOSITIONED FOR COMFORT TO HER RIGHT SIDE. PT RESTING WITH NO COMPLAINTS OF PAIN. CONTINUE TO MONITOR.
[2019-07-17] MEDS ORDERED: MED20T PO (16:29)
--- NOTE | 2019-07-17 16:40 | NUR ---
WOUND CARE [place], FARM BOSS, AT THE BEDSIDE AND ASSESSED PT'S WOUNDS TO SACRUM , BILATERAL BUTTOCKS AND INNER THIGHS. PHOTOS TAKEN AND CARE PROVIDED. PT INCONTINENT OF SMALLAMOUNT OF LOOSE LIQUID LIGHT BROWN BM. JESSICA CARE GIVEN AND PAD CHANGED. CONTINUE TO MONITOR.
--- NOTE | 2019-07-17 16:45 | NUR ---
WOUND CARE NOTE: IN TO SEE PATIENT AT THIS TIME PER WOUND CARE CONSULT REQUEST. PATIENT WAS NOTED UPON ADMIT TO HAVE MULTIPLE WOUNDS TO SACRUM/BUTTOCKS. ALL WOUNDS PHOTOGRAPHED AT THAT TIME BY BEDSIDE NURSE FOR REFERENCE BY BEDSIDE NURSE FOR REFERENCE. PATIENT ADMITTED TO [facility] WITH DIAGNOSIS OF HYPOXIA. SHE HAS CURRENT LYSSA SCORE OF 14. PATIENT IS ABLE TO ASSIST WITH HER TURNING/REPOSITIONING. SHE IS WEAK, REQUIRING MAX ASSIST. PATIENT IS NOTED TO HAVE MASD WITH SKIN EROSION, AND PRESSURE INJURIES FROM COCCYX TO PERINEUM/BILATERAL UPPER THIGHS. ALL WOUNDS RE-PHOTOGRAPHED WITH MEASUREMENTS FOR REFERENCE. APPLIED ZGUARD, OPTIFOAM GENTLE SACRAL DRESSING TO ALL WOUNDS, THAT RANGE FROM PARTIAL THICKNESS TO STAGE 3 PRESSURE INJURIES AND ONE SMALL DTI. PATIENT HAS HAD MULTIPLE BOUTS WITH INCONTINENT STOOL THIS SHIFT, APPLIED THICK LAYERS OF ZGUARD TO ALL WOUNDS A DRESSING. PATIENT HAS BEEN REQUIRING PERICARE WITH EACH INCONTINENT EPISODE. APPLIED OPTIFOAM GENTLE SACRAL DRESSING OVER COCCYX WOUND. PATIENT IS RESTING ON SPECIALTY ICU LOW AIRLOSS AIR BED. PATIENT SHOULD BE TRANSFERRED TO [facility] AIR MATTRESS WHEN TRANSFERRING TO ANOTHER UNIT. RECOMMEND: FREQUENT TURN SCHEDULE Q 2 HOURS, PRN CONDITION PERMITS, WITH PRESSURE REDISTRIBUTION USING PILLOWS/WEDGES, BID/PRN APPLICATION WITH ZGUARD, OPTIFOAM GENTLE DRESSINGS, LOW AIRLOSS AIRBED, DIETARY CONSULT, SKIN/WOUND CARE PLAN, CONTINUED MONITORING BY WOUND CARE TEAM. Addendum: 07/17/19 at 1847 by Liudmila Bertrand RN Amended: Links added.
--- NOTE | 2019-07-17 17:31 | NUR ---
CONTACTED BY DR SULLIVAN IN REGARDS TO + BLOOD CULTURES SHOWING GRAM POSITIVE COCCI IN CLUSTERS, AND HE IS ORDERING ANOTHER SET OF BLOOD CULTURES AND VANCOMYCIN IV PER PHARMACY DOSING.
[2019-07-17] MEDS ORDERED: VANCOMYCIN PER PHARMACY 0 MG IV SCH (17:45)
--- NOTE | 2019-07-17 18:30 | NUR ---
MD VISIT DR VARGHESE IN TO SEE AND EXAMINE PT. HE SPOKE WITH HER ABOUT DOING A THORACENTESIS AND DRAIN PLACEMENT . PT HAD TROUBLE TOLERATING THE PROCEDURE WHEN IT WAS ATTEMPTED ON RECENT ADMISSION AND DISCUSSED WITH THE PT THE IDEA OF INTUBATING HER FOR THE PROCEDURE AND THEN TRYING TO EXTUBATE HER TOMORROW. SHE WAS OKAY WITH IT BUT REQUESTED THAT MD SPEAK WITH HER GRANDDAUGHTER, ELVIRA. I GOT HER ON THE PHONE AND DR VARGHESE SPOKE WITH HER.
[2019-07-17] MEDS ORDERED: ETOMIDATE (2MG/ML) 20ML VIAL IV ONE ×2 (18:47→19:15)
[2019-07-17] MEDS ORDERED: ROCURONIUM 10MG/ML 10ML VIAL IV ONE ×2 (18:47→19:15)
[2019-07-17] MEDS ORDERED: fentaNYL Drip 2500mCg/250mlNS 250 ML IV ONE (18:48)
--- NOTE | 2019-07-17 18:50 | NUR ---
CONSENT OBTAIN CONSENT FROM PATIENT. PATIENT ALERT AND ORIENTED X4 AND AWARE OF PROCEDURE.
--- NOTE | 2019-07-17 19:00 | NUR ---
REPORT REPORT GIVEN TO ONCOMING RNDELONTE.
--- NOTE | 2019-07-17 19:05 | NUR ---
OPENING SHIFT RECEIVED REPORT FROM DAY SHIFT RN. ASSUMED CARE OF PATIENT. PATIENT PREPARING TO BE INTUBATED, CONSENTS SIGNED. DR. PICKENS, RT AND RN AT BEDSIDE ASSISTING WITH INTUBATION. WILL CONTINUE TO MONITOR.
[2019-07-17] MEDS: fentaNYL Drip 2500mCg/250mlNS 250 ML IV SCH (19:15)
--- NOTE | 2019-07-17 19:15 | NUR ---
INTUBATION PT INTUBATED BY DR VARGHESE WITH RT MICHAEL, AT THE BEDSIDE AND MESHA GOMEZ, AT BEDSIDE TO ADMINISTER MEDS ORDERED BY . PT GIVEN ROCURONIUM 50MG IV AND ETOMIDATE 20 MG IV . PT THEN STARTED ON FENTANYL DRIP AT 125 MCG/HR PER DR VARGHESE. PT SEDATED FOR COMFORT AND EASE OF BREATHING AND ALSO PT TO HAVE THORACENTESIS AND PLACEMENT OF PLEUREX DRAIN ON THE TIGHT. VENTILATOR SETTINGS OF 7.5 ETT/24 AT THE LIP, TV 400, AC 16, PEEP OF 10 AND 100% FIO2. NIGHT RNDELONTE, AT THE BEDSIDE.
[2019-07-17] MEDS ORDERED: PROPOFOL 100 ML IV ONE (19:20)
[2019-07-17] MEDS: PROPOFOL 100 ML IV SCH (19:30)
--- NOTE | 2019-07-17 19:45 | NUR ---
PLEUREX DRAIN DR. PICKENS AT BEDSIDE PLACING PLEUREX DRAIN ON RIGHT SIDE. FLUID DRAINED - 1L. PATIENT TOLERATED WELL. WILL CONTINUE TO MONITOR.
--- NOTE | 2019-07-17 20:35 | NUR ---
SPOKE WITH GRAND DAUGHTER (ELVIRA) PASSWORD VERIFIED. UPDATED GRAND DAUGHTER ON PATIENT STATUS. ALL QUESTIONS AND CONCERNS ADDRESSED AT THIS TIME.
[2019-07-17] MEDS ORDERED: VANCOMYCIN 1GM/250ML 250 ML IV ONE (21:00)
[2019-07-18] VITALS (105 sets, daily range): BP systolic 59–135; BP diastolic 30–70
--- NOTE | 2019-07-18 01:28 | NUR ---
PAGED AND SENT A MESSAGE TO DR. SULLIVAN AWAITING CALL BACK
[2019-07-18] MEDS ORDERED: ALBUMIN 5% 250 ML IV ONE ×2 (01:40→01:45)
--- NOTE | 2019-07-18 01:50 | NUR ---
SPOKE WITH HOSPITALIST DR. SULLIVAN NOT ANSWERING. MADE HOSPITALIST AWARE THAT BP IS LOW SUSTAINING IN THE 70'S SYSTOLIC. RECEIVED ORDERS FOR 5% 250CC ALBUMIN X1 AND TO CONTINUE TO PAGE DR. SULLIVAN. NOTED AND CARRIED OUT WILL CONTINUE TO MONITOR.
--- NOTE | 2019-07-18 02:25 | NUR ---
PAGED DR. SULLIVAN - SECOND TIME AWAITING CALL BACK
--- NOTE | 2019-07-18 03:25 | NUR ---
SPOKE TO DR. SULLIVAN MADE AWARE OF BP SUSTAINING IN THE 80'S SYSTOLIC, LEVOPHED AT 30MCG/MIN. RECEIVED ORDERS TO START NORSYNEPHRINE. WILL CONTINUE TO MONITOR.
[2019-07-18 03:52] LABS: Eosinophils # (auto) 0.4 10 ^3/uL (0-0.8); Lymphocytes # (auto) 0.6 10 ^3/uL (0.4-5.4); Lymphocytes % (auto) 6.5 % (10.0-50.0); Monocytes # (auto) 0.4 10 ^3/uL (0-1.3); Platelet Count (auto) 104 10^3/uL (140-450)
[2019-07-18 03:54] LABS: Basophils # (auto) 0.1 10 ^3/uL (0-0.2); Basophils % (auto) 0.7 % (0.0-2.0); Hematocrit 21.3 % (36.0-46.0); Mean Corpuscular Hemoglobin 30.2 pg (28.0-32.0); Mean Corpuscular Hgb Conc. 31.8 g/dL (32.0-36.0); Mean Corpuscular Volume 94.8 fL (80.0-100.0); Monocytes % (auto) 4.5 % (0.0-12.0); Neutrophils # (auto) 7.5 10 ^3/uL (1.6-8.6); Neutrophils % (auto) 84.3 % (37.0-80.0); Nucleated Red Blood Cells % 0.8 %; Red Blood Cells 2.25 10^6/uL (4.0-5.20); White Blood Cell 8.9 10^3/uL (4.4-10.8)
[2019-07-18] MEDS: PHENYLEPHRINE IV 250 ML IV SCH ×3 (04:00→20:17)
[2019-07-18 04:12] LABS: Albumin 1.6 g/dL (3.4-5.0); Calcium 6.9 mg/dL (8.5-10.1)
[2019-07-18 04:16] LABS: Red Cell Distribution Width 22.2 % (11.8-14.3)
[2019-07-18 04:17] LABS: Hemoglobin 6.8 g/dL (12.2-16.2)
[2019-07-18 04:18] LABS: BUN/Creatinine Ratio 20.4; Bilirubin, Total 0.7 mg/dL (0.2-1.0); Total Protein 5.7 g/dL (6.4-8.2)
--- NOTE | 2019-07-18 04:30 | NUR ---
PAGED DR. SULLIVAN AWAITING CALL BACK
[2019-07-18] MEDS: PIPERACILLIN-TAZOB 3.375GM 100 ML IV SCH ×4 (06:00→18:30)
[2019-07-18] MEDS: FUROSEMIDE 40 MG/4 ML VIAL IV SCH (06:00)
--- NOTE | 2019-07-18 06:15 | NUR ---
PAGED DR. ALDANA AWAITING CALL BACK.
--- NOTE | 2019-07-18 06:20 | NUR ---
SPOKE WITH DR. ALDANA MADE AWARE OF LOW BP AND HGB - 6.8. RECEIVED ORDERS FOR TYPE AND CROSS, INR, AND 2 UNITS OF PRBC. NOTED AND CARRIED OUT. WILL CONTINUE TO MONITOR.
--- NOTE | 2019-07-18 06:43 | NUR ---
SPOKE WITH GRAND DAUGHTER (ELVIRA) PASSWORD VERIFIED. UPDATED GRAND DAUGHTER ON PATIENT STATUS. BLOOD TRANSFUSION FORM SIGNED VIA TELEPHONE CONSENT WITH 2 RN'S. ALL QUESTIONS AND CONCERNS ADDRESSED. WILL CONTINUE TO MONITOR.
--- NOTE | 2019-07-18 07:30 | NUR ---
REPORT REPORT RECEIVED FROM ASHLY RNDELONTE. BEDSIDE CHECK DONE. PT CURRENTLY INTUBATED, SEDATED AND ON BP SUPPORT MEDS. VSS. CONTINUE TO MONITOR.
--- NOTE | 2019-07-18 07:30 | NUR ---
ASSESSMENT PT RESTING IN BED WITH EYES CLOSED. FACIAL GRIMACING AND MOVES EXTREMITIES WITH TACTILE STIMULATION. PUPILS 3 AND SLUGGISH. ON THE VENTILATOR WITH 7.5 FR ETT/24 AT THE LIP, PRESSURE CONTROL WITH PRESSURE OF 24 AND RATE OF 22, 60% FIO2 AND PEEP OF 10. LUNGS COARSE THROUGHOUT, BOTH INSPIRATION AND EXPIRATION. O2 SAT OF 100%. RR 22. SEDATED ON FENTANYL AND PROPOFOL. SUCTIONED VIA ETT FOR SMALL AMOUNT OF THICK CREAMY GUEVARA SECRETIONS. TELE SR 99 WITH INVERTED T WAVE IN LEADS I AND AVL, ST DEPRESSION IN LEADS I,II,III, AND ST ELEVATION IN LEADS AVR AND V. PALPABLE PULSES TO ALL EXTREMITIES. SCDS TO BLE. ABD SOFT WITH HYPOACTIVE BOWEL SOUNDS. OGT WITH PLACEMENT CONFIRMED BY AUSCULTATION AND NO RESIDUAL NOTED. LAST BM WAS ON THE BACK CLOSER. MENDOZA CATHETER DRAINING CLEAR YELLOW URINE. IVF VIA RUE MIDLINE AND PORTACATH TO THE RIGHT UPPER CHEST. PT WITH HEMOGLOBIN OF 6.8. ORDERED FOR 2 UNITS OF PRBC TO BE GIVEN. STARTED ANOTHER IV ACCESS, #20 TO THE LAC, FIRST ATTEMPT. PT WITH AREAS OF SKIN BREAKDOWN TO SACRUM , BUTTOCKS AND INNER THIGHS. SEE WOUND CARE ASSESSMENT. PT TURNED TO HER RIGHT SIDE. RAILS UP X4 AND BED IN LOW POSITION FOR PT SAFETY. CONTINUE TO MONITOR.
--- NOTE | 2019-07-18 07:30 | NUR ---
END OF SHIFT REPORT GIVEN TO DAY SHIFT RN. CARE ENDORSED.
[2019-07-18 07:41] LABS: INR 1.23 (0.9-1.15)
[2019-07-18] MEDS: PROPOFOL 100 ML IV SCH (08:15)
[2019-07-18] MEDS: NOREPINEPHRINE 8 MG/250ML KIT 250 ML IV PRN (08:18)
--- NOTE | 2019-07-18 09:00 | NUR ---
MD/PHONE RECEIVED A PHONE CALL FROM DR SULLIVAN AND UPDATED HIM ON THE PT'S CURRENT CONDITION. NO NEW ORDERS RECEIVED.
--- NOTE | 2019-07-18 09:23 | NUR ---
PT TO RECEIVE 2 UNITS OF PRBC.CONSENT ALREADY OBTAINED. FIRST UNIT STARTED. MONITOR FOR ANY POSSIBLE ADVERSE EFFECTS.
[2019-07-18] MEDS ORDERED: PHENYLEPHRINE IV 250 ML IV ONE (10:06)
--- NOTE | 2019-07-18 11:21 | NUR ---
Nutrition Assessment Notes Please refer to link for full assessment notes. Est Energy needs: 3536-5730 kcals (20-23 kcal/kgBW) Est Protein needs: 47-59 gms/day (0.6-0.75 gm/kgBW) Will continue to monitor and reassess prn. Addendum: 07/18/19 at [address] Amended: Links added. Addendum: 07/18/19 at [address] Please Note Additional Recommendation: Consider a daily MVI with 500mg VitC BID
[2019-07-18] MEDS ORDERED: SODIUM CHLORIDE 0.9% 500 ML IV ONE (11:30)
[2019-07-18] MEDS: VASOPRESSIN 50 UNITS in D5W 5% 247.5 ML IV SCH (12:37)
[2019-07-18] MEDS: SODIUM CHLORIDE 0.9% 1,000 ML IV SCH (13:28)
[2019-07-18] MEDS: fentaNYL Drip 2500mCg/250mlNS 250 ML IV SCH (15:33)
[2019-07-18] MEDS: HYDROCORTISONE SOD SUCC 100 MG/2ML INJ VIAL IV SCH ×2 (15:33→22:40)
[2019-07-18] MEDS ORDERED: VANCOMYCIN 500 MG in D5W 5% 100 ML IV ONE (17:00)
[2019-07-18] MEDS ORDERED: VANCOMYCIN 1GM/250ML 250 ML IV ONE (17:37)
--- NOTE | 2019-07-18 18:10 | NUR ---
Respiratory note: RECEIVED PT ON VENT V8. ETT TO VENT. VENT CONNECTED TO RED OUTLET AND O2 SOURCE. ALARMS ARE SET AND AUDIBLE. AMBU BAG/MASK AT BEDSIDE. BS ARE FINE COURSE SXD MODERATE THICK CREAMY GUEVARA VIA ETT WITHOUT INCIDENT. RT NAME AND PAGER ASSIGNMENT WRITTEN ON PTS ROOM BOARD. WILL CONTINUE TO MONITOR Q2H.
[2019-07-18] MEDS ORDERED: CYAN100088 PO (18:23)
[2019-07-18] MEDS ORDERED: OMEP-260 PO (18:34)
[2019-07-18] MEDS ORDERED: POTA-180 PO (18:34)
[2019-07-18] MEDS ORDERED: OYST500T48 OR (18:36)
[2019-07-18] MEDS ORDERED: CHOL500021 PO (18:36)
--- NOTE | 2019-07-18 19:30 | NUR ---
REPORT REPORT GIVEN TO ASHLY RNBRYATN. BEDSIDE CHECK DONE.
--- NOTE | 2019-07-18 20:11 | NUR ---
Respiratory note: AT BEDSIDE FOR ROUTINE VENT CHECK. HME CHANGED AT THIS TIME. NO VENT CHANGES MADE, WILL CONTINUE TO MONITOR.
--- NOTE | 2019-07-18 21:25 | NUR ---
UPDATED PT. GRAND-DAUGHTER VIA TELEPHONE.
[2019-07-19] VITALS (105 sets, daily range): BP systolic 55–153; BP diastolic 27–69
[2019-07-19] MEDS: SODIUM CHLORIDE 0.9% 1,000 ML IV SCH (00:50)
--- NOTE | 2019-07-19 02:18 | NUR ---
Respiratory note: AT BEDSIDE FOR ROUTINE VENT CHECK. NO VENT CHANGES MADE, BS ARE FINE COURSE SXD VIA ETT FOR SMALL THIN CREAMY YELLOW SECRETIONS. WILL CONTINUE TO MONITOR.
[2019-07-19 04:27] LABS: Basophils # (auto) 0 10 ^3/uL (0-0.2); Basophils % (auto) 0.3 % (0.0-2.0); Eosinophils # (auto) 0 10 ^3/uL (0-0.8); Eosinophils % (auto) 0.3 % (0.0-7.0); Hematocrit 33.9 % (36.0-46.0); Hemoglobin 11.1 g/dL (12.2-16.2); Lymphocytes # (auto) 0.8 10 ^3/uL (0.4-5.4); Lymphocytes % (auto) 7.2 % (10.0-50.0); Mean Corpuscular Hemoglobin 29.5 pg (28.0-32.0); Mean Corpuscular Hgb Conc. 32.6 g/dL (32.0-36.0); Mean Corpuscular Volume 90.5 fL (80.0-100.0); Monocytes # (auto) 0.5 10 ^3/uL (0-1.3); Monocytes % (auto) 4.4 % (0.0-12.0); Neutrophils # (auto) 9.5 10 ^3/uL (1.6-8.6); Neutrophils % (auto) 87.8 % (37.0-80.0); Nucleated Red Blood Cells % 0.2 %; Platelet Count (auto) 104 10^3/uL (140-450); Red Blood Cells 3.75 10^6/uL (4.0-5.20); Red Cell Distribution Width 19.9 % (11.8-14.3); White Blood Cell 10.7 10^3/uL (4.4-10.8)
[2019-07-19] MEDS: PHENYLEPHRINE IV 250 ML IV SCH ×3 (04:37→21:17)
[2019-07-19 05:01] LABS: Potassium 4.9 mmol/L (3.5-5.1)
[2019-07-19 05:10] LABS: Albumin 1.3 g/dL (3.4-5.0); Bilirubin, Total 0.6 mg/dL (0.2-1.0); Calcium 6.2 mg/dL (8.5-10.1); Total Protein 5.8 g/dL (6.4-8.2)
[2019-07-19] MEDS: PIPERACILLIN-TAZOB 3.375GM 100 ML IV SCH ×4 (06:00→17:45)
[2019-07-19] MEDS: HYDROCORTISONE SOD SUCC 100 MG/2ML INJ VIAL IV SCH ×3 (06:00→22:09)
--- NOTE | 2019-07-19 07:55 | NUR ---
PAGED DR. VARGHESE DUE TO CRITICAL ABG RESULTS. MESHA GOMEZ MADE AWARE
[2019-07-19] MEDS ORDERED: DEXTROSE (50%) 50ML SYRG IV PRN ×2 (08:00→20:45)
[2019-07-19] MEDS ORDERED: SODIUM BICARBONATE 50ML VIAL 150 ML in D5W 5% 1,000 ML IV SCH (08:40)
[2019-07-19] MEDS: PROPOFOL 100 ML IV SCH (10:24)
[2019-07-19] MEDS: fentaNYL Drip 2500mCg/250mlNS 250 ML IV SCH ×2 (10:25→19:03)
[2019-07-19] MEDS: VASOPRESSIN 50 UNITS in D5W 5% 247.5 ML IV SCH (11:43)
[2019-07-19] MEDS: ACCU-CHEK COMFORT CURVE STRIP VI SCH ×3 (11:44→22:10)
[2019-07-19] MEDS: InsuLIN REG 1unit/0.01ml Soln (100units/ml) SC SCH ×3 (11:51→22:10)
--- NOTE | 2019-07-19 12:30 | NUR ---
FAMILY Received phone call from patients grand daughter, correct password provided and updated on patient condition.
--- NOTE | 2019-07-19 12:53 | NUR ---
SECOND MESSAGE SENT TO DR. VARGHESE REGARDING MORNING ABG RESULTS FOR PT.
[2019-07-19] MEDS ORDERED: FUROSEMIDE 40 MG/4 ML VIAL IV ONE (13:00)
--- NOTE | 2019-07-19 14:10 | NUR ---
MD Dr. Toth at bedside updated on patient condition with no new orders.
--- NOTE | 2019-07-19 15:00 | NUR ---
MD Dr. Garcia at bedside updated on patient condition with new orders, this RN to input into system. aware of AM ABG.
--- NOTE | 2019-07-19 15:20 | NUR ---
DRAINAGE OF DRAIN Connected Pluerex to drainage bottle and only received 25ml of serosanguineous fluide, Dr. Garcia at bedside and aware.
--- NOTE | 2019-07-19 17:30 | NUR ---
FAMILY Received phone call from grand daughter, correct password provided and updated on patient condition.
[2019-07-19] MEDS ORDERED: SODIUM BICARBONATE 50ML VIAL 150 ML in SOD CHL 0.45% 1,000 ML IV SCH (20:00)
[2019-07-19] MEDS: SODIUM BICARBONATE 50ML VIAL 150 ML in SOD CHL 0.45% 1,000 ML IV SCH (22:00)
[2019-07-20] VITALS (82 sets, daily range): BP systolic 70–145; BP diastolic 35–80
[2019-07-20] MEDS: ACCU-CHEK COMFORT CURVE STRIP VI SCH ×5 (04:00→20:00)
[2019-07-20] MEDS: InsuLIN REG 1unit/0.01ml Soln (100units/ml) SC SCH ×5 (04:00→20:00)
[2019-07-20 04:30] LABS: Basophils # (auto) 0.1 10 ^3/uL (0-0.2); Basophils % (auto) 0.7 % (0.0-2.0); Eosinophils # (auto) 0 10 ^3/uL (0-0.8); Eosinophils % (auto) 0.2 % (0.0-7.0); Hematocrit 31.6 % (36.0-46.0); Hemoglobin 10.5 g/dL (12.2-16.2); Lymphocytes # (auto) 0.9 10 ^3/uL (0.4-5.4); Lymphocytes % (auto) 7.8 % (10.0-50.0); Mean Corpuscular Hemoglobin 29.2 pg (28.0-32.0); Mean Corpuscular Hgb Conc. 33.3 g/dL (32.0-36.0); Mean Corpuscular Volume 87.7 fL (80.0-100.0); Monocytes # (auto) 0.4 10 ^3/uL (0-1.3); Monocytes % (auto) 3.9 % (0.0-12.0); Neutrophils # (auto) 9.8 10 ^3/uL (1.6-8.6); Neutrophils % (auto) 87.4 % (37.0-80.0); Nucleated Red Blood Cells % 0.1 %; Platelet Count (auto) 72 10^3/uL (140-450); Red Cell Distribution Width 18.9 % (11.8-14.3); White Blood Cell 11.3 10^3/uL (4.4-10.8)
[2019-07-20 04:52] LABS: Potassium 3.4 mmol/L (3.5-5.1)
[2019-07-20 05:05] LABS: Albumin 1.3 g/dL (3.4-5.0); BUN/Creatinine Ratio 16.6; Bilirubin, Total 0.6 mg/dL (0.2-1.0); Total Protein 5.5 g/dL (6.4-8.2)
[2019-07-20 05:14] LABS: Calcium 5.8 mg/dL (8.5-10.1)
[2019-07-20] MEDS: PHENYLEPHRINE IV 250 ML IV SCH ×3 (05:37→22:17)
[2019-07-20] MEDS: HYDROCORTISONE SOD SUCC 100 MG/2ML INJ VIAL IV SCH ×3 (06:00→22:00)
[2019-07-20] MEDS: PIPERACILLIN-TAZOB 3.375GM 100 ML IV SCH ×2 (06:25)
--- NOTE | 2019-07-20 06:54 | NUR ---
UPDATED PATIENT GRAND-DAUGHTER VIA TELEPHONE ON PLAN OF CARE.
[2019-07-20] MEDS: SODIUM BICARBONATE 50ML VIAL 150 ML in SOD CHL 0.45% 1,000 ML IV SCH (08:13)
[2019-07-20] MEDS: FUROSEMIDE INJECTION 100 MG in D5W 5% 100 ML IV SCH ×4 (08:13→22:00)
--- NOTE | 2019-07-20 08:45 | NUR ---
MD Dr. Noyola at bedside updated on patient condition with no new orders, MD states " will put in new orders later this afternoon." Will implement new orders when received.
[2019-07-20] MEDS: MEROPENEM 500MG IVPB 50 ML IV SCH ×2 (09:50→22:00)
[2019-07-20] MEDS: NOREPINEPHRINE 8 MG/250ML KIT 250 ML IV PRN (09:53)
[2019-07-20] MEDS: SODIUM BICARB 50ML SYR 75 ML in SOD CHL 0.45% 1,000 ML IV SCH (10:50)
--- NOTE | 2019-07-20 11:32 | NUR ---
Nutrition Followup Notes WT: 87 kg Pt`s intubated sedated with propofol @ 7.182 ml/hr providing 189 kcals from fats no family by bedside. per RN pt with no new diet orders. pt is currently NPO Est Energy needs: 2101-1144 kcals (20-23 kcal/kgBW), Est Protein needs: 47-59 gms/day (0.6-0.75 gm/kgBW). Will continue to monitor and reassess prn. LABS: ALB 1.3 L, CA 5.8 L, BUN 57 H, CREAT 3.43 H GI: Pt had 1 BM today per RN doc. BS: 14 mod risk. Please refer to wound assessment report for full details. PES: Altered nutrition related lab values r.t current chronic medical condition aeb elev RFTs, Stg 4 CKD, hyperglycemia,hypocalcemia, low LFTs, dyslipidemia, severe hypoalbuminemia Increased nutrient needs r/t pt with no PO intake aeb pt sedated, intubated, NPO Rec: 1) Continue to closely monitor pt NPO status. 2) If pt remains NPO for the next 48 hours, consider EN nutrition support Jevity 1.2 @ 60 ml/hr goal rate. 3) Gradually advance pt to oral Renal Specific 50g Pro, 2gNa,K2 diet when medically feasible and as tolerated. 4) Continue current plan of care. F/u high 2-3 days
--- NOTE | 2019-07-20 11:35 | NUR ---
FAMILY Received phone call from grand daughter, correct password provided and updated on patient condition.
[2019-07-20] MEDS: VASOPRESSIN 50 UNITS in D5W 5% 247.5 ML IV SCH (12:00)
--- NOTE | 2019-07-20 12:15 | NUR ---
MD Dr. Garcia at bedside updated on patient condition with no new orders and aware of AM ABG.
--- NOTE | 2019-07-20 12:45 | NUR ---
ELIMINATION Patient had a large bowel loose brown bowel movement, gustavo-care provided with the assistance of Hannah ZIMMER. Patient tolerated well.
--- NOTE | 2019-07-20 15:52 | NUR ---
assessment Patient is a 78 year old female who is on a vent in ICU. Per patients granddaughter Lupe prior to admission patient lived home with her and needed assistance since her last visit here. Patients PCP is Dr Toth and Dr Kramer. Patient has a doctor at [facility] Dr Moses Ramirez. Patient has a cane, fww, bedside commode, 02, rollator, and shower chair for home use. Patient is on service with [facility]. Patient has an advanced directive and Lupe is POA. Lupe informed me patient was feeling weak and having SOB so she took her back to ER and she was admitted again to ICU. I informed Lupe that patients post discharge needs to be determined after extubation and prior to discharge and at the least we will get a resumption order for home health. Lupe verbalized understanding. Addendum: 07/20/19 at 1556 by Genet ISLAS Amended: Links added.
--- NOTE | 2019-07-20 15:55 | NUR ---
MD Dr. Toth at bedside updated on patient condition with no new orders.
--- NOTE | 2019-07-20 17:30 | NUR ---
FAMILY Received phone call from patients grand daughter, correct password provided and updated on patient condition.
[2019-07-20] MEDS: fentaNYL Drip 2500mCg/250mlNS 250 ML IV SCH (19:03)
[2019-07-20] MEDS: PROPOFOL 100 ML IV SCH (19:03)
[2019-07-21] VITALS (106 sets, daily range): BP systolic 63–163; BP diastolic 30–97
[2019-07-21] MEDS: SODIUM BICARB 50ML SYR 75 ML in SOD CHL 0.45% 1,000 ML IV SCH (00:20)
[2019-07-21] MEDS: FUROSEMIDE INJECTION 100 MG in D5W 5% 100 ML IV SCH ×5 (03:00→23:00)
[2019-07-21] MEDS: ACCU-CHEK COMFORT CURVE STRIP VI SCH ×6 (04:00→20:00)
[2019-07-21] MEDS: InsuLIN REG 1unit/0.01ml Soln (100units/ml) SC SCH ×6 (04:22→20:00)
[2019-07-21 04:24] LABS: Basophils # (auto) 0.1 10 ^3/uL (0-0.2); Basophils % (auto) 0.7 % (0.0-2.0); Eosinophils # (auto) 0 10 ^3/uL (0-0.8); Eosinophils % (auto) 0.3 % (0.0-7.0); Hematocrit 33.7 % (36.0-46.0); Hemoglobin 11.3 g/dL (12.2-16.2); Mean Corpuscular Hemoglobin 29.1 pg (28.0-32.0); Platelet Count (auto) 52 10^3/uL (140-450); Red Blood Cells 3.87 10^6/uL (4.0-5.20); White Blood Cell 13.1 10^3/uL (4.4-10.8)
[2019-07-21 04:25] LABS: Lymphocytes # (auto) 0.9 10 ^3/uL (0.4-5.4); Lymphocytes % (auto) 6.7 % (10.0-50.0); Mean Corpuscular Hgb Conc. 33.4 g/dL (32.0-36.0); Mean Corpuscular Volume 87.2 fL (80.0-100.0); Monocytes # (auto) 0.9 10 ^3/uL (0-1.3); Monocytes % (auto) 6.5 % (0.0-12.0); Neutrophils # (auto) 11.3 10 ^3/uL (1.6-8.6); Neutrophils % (auto) 85.8 % (37.0-80.0); Nucleated Red Blood Cells % 0.1 %
[2019-07-21 04:42] LABS: Albumin 1.3 g/dL (3.4-5.0); Potassium 3.1 mmol/L (3.5-5.1)
[2019-07-21 04:47] LABS: BUN/Creatinine Ratio 17.3; Bilirubin, Total 0.5 mg/dL (0.2-1.0); Total Protein 5.4 g/dL (6.4-8.2)
[2019-07-21 04:59] LABS: Calcium 5.7 mg/dL (8.5-10.1)
[2019-07-21] MEDS: HYDROCORTISONE SOD SUCC 100 MG/2ML INJ VIAL IV SCH ×3 (06:27→22:18)
[2019-07-21] MEDS: PHENYLEPHRINE IV 250 ML IV SCH ×3 (06:37→23:17)
--- NOTE | 2019-07-21 08:40 | NUR ---
MD Dr. Noyola at bedside updated on patient condition with new orders, MD to input into system. This RN to implement orders.
[2019-07-21] MEDS: MEROPENEM 500MG IVPB 50 ML IV SCH ×2 (09:41→22:18)
--- NOTE | 2019-07-21 10:28 | NUR ---
MD Dr. Garcia at bedside updated on patient condition with no new orders received.
[2019-07-21] MEDS: VASOPRESSIN 50 UNITS in D5W 5% 247.5 ML IV SCH (12:00)
[2019-07-21] MEDS ORDERED: POTASSIUM EFFERVESENT TAB 25 MEQ GT ONE (13:45)
--- NOTE | 2019-07-21 13:45 | NUR ---
MD Dr. Toth at bedside updated on patient condition with new orders, this RN to input into system. Informed MD to call family for update per grand daughter request.
[2019-07-21] MEDS ORDERED: VANCOMYCIN 500 MG in D5W 5% 100 ML IV ONE (14:00)
[2019-07-21] MEDS: fentaNYL Drip 2500mCg/250mlNS 250 ML IV SCH (15:34)
[2019-07-21] MEDS: PROPOFOL 100 ML IV SCH (15:35)
--- NOTE | 2019-07-21 16:00 | NUR ---
FAMILY Received phone call from patients grand daughter, correct password provided and updated on patient condition.
--- NOTE | 2019-07-21 16:45 | NUR ---
ELIMINATION Patient has a moderate loose brown stool, complete linen change done with the assistance of Hannah ZIMMER and Macey student aircraft maintenance manager. Patient tolerated well.
--- NOTE | 2019-07-21 23:00 | NUR ---
OPENING NOTE RECEIVED REPORT FROM NOC NURSE. ASSUMED CARE OF PATIENT. FOR MORE INFORMATION SEE INTERVENTIONS
[2019-07-22] VITALS (108 sets, daily range): BP systolic 56–211; BP diastolic 32–113
[2019-07-22] MEDS: ACCU-CHEK COMFORT CURVE STRIP VI SCH ×6 (01:00→19:51)
[2019-07-22] MEDS: InsuLIN REG 1unit/0.01ml Soln (100units/ml) SC SCH ×6 (01:04→19:50)
--- NOTE | 2019-07-22 02:00 | NUR ---
COMPLETE LINEN CHANGE SMALL PASTY BOWEL MOVEMENT CLEANED. COMPLETE LINEN CHANGE PROVIDED. BED BATH WITH CHG WIPES AND SOAP AND WATER. SKIN REASSESSED AND NO NEW BREAK DOWN NOTED
[2019-07-22] MEDS: FUROSEMIDE INJECTION 100 MG in D5W 5% 100 ML IV SCH ×4 (04:37→17:57)
[2019-07-22 04:56] LABS: Eosinophils # (auto) 0 10 ^3/uL (0-0.8); Eosinophils % (auto) 0.1 % (0.0-7.0); Hemoglobin 11.2 g/dL (12.2-16.2); Lymphocytes # (auto) 0.8 10 ^3/uL (0.4-5.4); Red Cell Distribution Width 18.6 % (11.8-14.3)
[2019-07-22 05:00] LABS: Basophils # (auto) 0.1 10 ^3/uL (0-0.2); Basophils % (auto) 0.4 % (0.0-2.0); Hematocrit 32.6 % (36.0-46.0); Lymphocytes % (auto) 5.8 % (10.0-50.0); Mean Corpuscular Hemoglobin 29.3 pg (28.0-32.0); Mean Corpuscular Hgb Conc. 34.2 g/dL (32.0-36.0); Mean Corpuscular Volume 85.6 fL (80.0-100.0); Monocytes # (auto) 0.7 10 ^3/uL (0-1.3); Monocytes % (auto) 4.9 % (0.0-12.0); Neutrophils # (auto) 12.4 10 ^3/uL (1.6-8.6); Neutrophils % (auto) 88.8 % (37.0-80.0); Nucleated Red Blood Cells % 0.2 %; Platelet Count (auto) 49 10^3/uL (140-450)
[2019-07-22 05:22] LABS: Albumin 1.3 g/dL (3.4-5.0); BUN/Creatinine Ratio 18.8; Bilirubin, Total 0.5 mg/dL (0.2-1.0)
[2019-07-22 05:42] LABS: Calcium 5.4 mg/dL (8.5-10.1); Potassium 2.8 mmol/L (3.5-5.1)
--- NOTE | 2019-07-22 06:00 | NUR ---
family called updated granddaughter on patient condition. all questions addressed at this time
[2019-07-22] MEDS: HYDROCORTISONE SOD SUCC 100 MG/2ML INJ VIAL IV SCH ×3 (06:03→21:55)
[2019-07-22] MEDS ORDERED: POTASSIUM EFFERVESENT TAB 25 MEQ GT ONE (06:15)
--- NOTE | 2019-07-22 06:25 | NUR ---
critical labs paged gasket supervisor for critical potassium and calcium values.
--- NOTE | 2019-07-22 06:30 | NUR ---
spoke with necrologist updated das on patients labs. no new orders received
--- NOTE | 2019-07-22 07:30 | NUR ---
REPORT REPORT RECEIVED FROM ASHLY RNTREVOR. BEDSIDE CHECK DONE. PT RESTING WITH EYES CLOSED AND REMAINS ON THE VENTILATOR AND SEDATED AND WITH BP SUPPORT MED INFUSING. CONTINUE TO MONITOR.
[2019-07-22] MEDS: PHENYLEPHRINE IV 250 ML IV SCH ×2 (07:37→15:56)
--- NOTE | 2019-07-22 07:42 | NUR ---
ASSESSMENT PT RESTING IN BED WITH EYES CLOSED. GRIMACES AND WITHDRAWS TO PAINFUL STIMULI. NO SPONTANEOUS MOVEMENT NOTED. PUPILS 3 AND SLUGGISH. ON THE VENTILATOR WITH SETTINGS OF: 7.5 FR ETT/24 AT THE LIP, PRESSURE CONTROL MODE WITH PRESSURE OF 22, RATE 22, 40% FIO2 AND PEEP OF 10. LUNGS CLEAR THROUGHOUT. SUCTIONED VIA ETT FOR SMALL AMOUNT OF THICK CREAMY GUEVARA FLUID. O2 SAT OF 94% WITH A RR OF 22. TELE SR [address] IN LEAD II AND ELEVATED ST IN LEAD V. PALPABLE PULSES TO ALL EXTREMITIES. SCDS TO BLE. +1 PITTING EDEMA NOTED TO BILAT ANKLES AND +2 PITTING EDEMA NOTED TO THE RIGHT HAND. ABD SOFT WITH + BOWEL SOUNDS. OGT WITH + PLACEMENT AND NO RESIDUAL NOTED. LAST BM WAS EARLIER THIS AM ON THE DIRECTOR OF HOME HEALTH SERVICES. MENDOZA CATHETER DRAINING CLEAR YELLOW URINE. PT NOTED TO HAVE SKIN TEARS TO THE BACK OF THE THIGH AND TO INNER RIGHT AND LEFT THIGHS, OPEN TO AIR. CLEANED WITH SOAP AND WATER, PATTED DRY AND Z GUARD CREAM APPLIED. OPTIFOAM TO SACRUM WITH SKIN SPLIT NOTED IN CREVICE BETWEEN UPPER BUTTOCKS AND COCCYX WITH 2 OPEN SKIN TEARS, BOTH WITH RED WOUND BEDS. PT REPOSITIONED TO HER LEFT SIDE. PT WITH IVF TO HER RUE MIDLINE AND RIGHT UPPER CHEST PORTACATH, BOTH SITES CLEAR AND FLUSH WELL. PT CURRENTLY ON THE FOLLOWING DRIPS: LASIX, LEVOPHED, FENTANYL, AND PROPOFOL. RAILS UP X4 AND BED IN LOW POSITION FOR PT SAFETY. CONTINUE TO MONITOR,
--- NOTE | 2019-07-22 07:52 | NUR ---
PT TEACHING PT UNABLE TO BENEFIT FROM PT TEACHING AT THIS TIME DUE TO PT BEING INTUBATED AND SEDATED. Addendum: 07/22/19 at 1747 by Ayanna Smith RN Amended: Links added.
[2019-07-22] MEDS: MEROPENEM 500MG IVPB 50 ML IV SCH ×2 (09:57→21:54)
--- NOTE | 2019-07-22 10:50 | NUR ---
FAMILY/PHONE RETURNED PHONE CALL FROM PT'S GRANDDAUGHTER, ELVIRA. AFTER VERIFYING THE PASSWORD, I UPDATED HER ON THE PT'S CURRENT CONDITION AND POC FOR THE DAY, AND ANSWERED HER QUESTIONS.
--- NOTE | 2019-07-22 10:50 | NUR ---
MD/SEDATION DR VARGHESE HERE AND WOULD LIKE TO TAPER DOWN AND OFF SEDATION PT TOLERATES. IF SHE TOLERATES AND IS ABLE TO WAKE UP AND FOLLOW SIMPLE COMMANDS. CPAP TRIAL.
--- NOTE | 2019-07-22 11:07 | NUR ---
Nutrition Followup Notes WT: 91.9 kg Pt`s intubated sedated with propofol @ 9.576 ml/hr providing 252 kcals from fats no family by bedside. per RN pt with no new diet orders and possible CPAP today if she wakes up enough. pt is currently NPO Est Energy needs: 9463-5035 kcals (20-23 kcal/kgBW), Est Protein needs: 47-59 gms/day (0.6-0.75 gm/kgBW). Will continue to monitor and reassess prn. LABS: GLU 155 H, ALB 1.3 L, CA 5.4 L. BUN 66 H, CREAT 3.51 H GI: Pt had 1 BM today per RN doc. BS: 14 mod risk. Please refer to wound assessment report for full details. PES: Altered nutrition related lab values r.t current chronic medical condition aeb elev RFTs, Stg 4 CKD, hyperglycemia,hypocalcemia, low LFTs, dyslipidemia, severe hypoalbuminemia Increased nutrient needs r/t pt with no PO intake aeb pt sedated, intubated, NPO Rec: 1) Continue to closely monitor pt NPO status. 2) If pt remains NPO for the next 48 hours, consider EN nutrition support Jevity 1.2 @ 60 ml/hr goal rate. 3) Gradually advance pt to oral Renal Specific 50g Pro, 2gNa,K2 diet when medically feasible and as tolerated. 4) Continue current plan of care. F/u high 2-3 days
--- NOTE | 2019-07-22 11:40 | NUR ---
HAVE TITRATED OFF DIPRIVAN AND WILL CONTINUE TITRATING DOWN ON FENTANYL DRIP PER DR VARGHESE. WHEN PT AWAKE AND ABLE TO FOLLOW SIMPLE COMMANDS, WILL PROCEED WITH CPAP TRIAL.
[2019-07-22] MEDS: VASOPRESSIN 50 UNITS in D5W 5% 247.5 ML IV SCH (11:56)
[2019-07-22] MEDS: NOREPINEPHRINE 8 MG/250ML KIT 250 ML IV PRN (11:59)
[2019-07-22] MEDS: fentaNYL Drip 2500mCg/250mlNS 250 ML IV SCH ×2 (12:48→13:15)
--- NOTE | 2019-07-22 15:55 | NUR ---
ACCUCHECK OF 180 AND COVERED WITH 4 UNITS OF REGULAR INSULIN SQ. CONTINUE TO MONITOR. PT BRIEFLY OPENS EYES WITH TURNING AND SUCTIONING BUT NO T FOLLOWING ANY COMMANDS. CONTINUE TO MONITOR.
[2019-07-22] MEDS: POTASSIUM CHL 20MEQ/100ML 100 ML IV SCH ×2 (16:11→17:57)
--- NOTE | 2019-07-22 16:45 | NUR ---
PT AWAKE AND FOLLOWING SIMPLE COMMANDS. UNSURE IF DR VARGHESE WANTS TO DO A CPAP THIS LATE. CALLED HIS CELL PHONE WHICH REFERRED ME TO THE OFFICE TO LEAVE A MESSAGE WHICH I DID. AWAITING A CALL BACK.
--- NOTE | 2019-07-22 17:15 | NUR ---
PLACED PT ON CAPP WITH PRESSURE SUPPORT OF 7 AND PEEP OF 5 TO SEE IF SHE WOULD TOLERATED. RR 22 WITH TV IN THE 350'S. PLACED BACK ON PREVIOUS SETTINGS AND AWAITING A RETURN CALL FROM DR VARGHESE TO SEE IF HE WANTS US TO DO A CPAP TRIAL. Addendum: 07/22/19 at 1723 by Ayanna Smith RN PT PLACED ON CPAP BY RT. GWEN
--- NOTE | 2019-07-22 17:15 | NUR ---
Respiratory note: INCREASED FIO2 TO 50% AT THIS TIME
--- NOTE | 2019-07-22 18:00 | NUR ---
RESTARTED FENTANYL DRIP AT 25 MCG PER PROTOCOL PT'S RR 30.
--- NOTE | 2019-07-22 18:13 | NUR ---
CHANGED BMP DUE FOR 1800 UNTIL 2029 SO THAT THE K REPLACEMENT WILL BE COMPLETED.
--- NOTE | 2019-07-22 18:14 | NUR ---
BP OF 85/43. RESTARTED LEVOPHED AT 5 MCG. CONTINUE TO MONITOR BP.
--- NOTE | 2019-07-22 18:30 | NUR ---
PT RESTING QUIETLY WITH NO DISTRESS NOTED. VSS: 93-22-93% 90/49 CUFF 104/51 ART LINE. CONTINUE TO MONITOR.
--- NOTE | 2019-07-22 19:15 | NUR ---
Opening note received report from xiang meier. patient intubated and sedated on 25 of fentanyl, tolerating ventilator. Opens eyes follows commands, patient is biting tube. started propofol for patient comfort through night. SR in 80's with bp 110/60 on levophed support. art line to right groin, cdi. castro patent. ogt patent. multiple skin issues. for more information see interventions. for gtts and their titrations see iv spread sheet. bed locked and in lowest position. all fall and safety precautions in place.
--- NOTE | 2019-07-22 19:15 | NUR ---
REPORT REPORT GIVEN TO TREVOR LIMON RN.
[2019-07-22] MEDS: PROPOFOL 100 ML IV SCH (19:30)
[2019-07-22 21:46] LABS: BUN/Creatinine Ratio 19.3; Potassium 3.7 mmol/L (3.5-5.1)
--- NOTE | 2019-07-22 21:46 | NUR ---
received call from [facility] updated radha on patient status and cpap trial today and plan for cpap tomorrow. all questions addressed at this time
[2019-07-22 21:51] LABS: Calcium 5.9 mg/dL (8.5-10.1)
[2019-07-23] VITALS (103 sets, daily range): BP systolic 84–209; BP diastolic 39–133
[2019-07-23] MEDS: PHENYLEPHRINE IV 250 ML IV SCH ×3 (00:17→16:57)
[2019-07-23] MEDS: FUROSEMIDE INJECTION 100 MG in D5W 5% 100 ML IV SCH ×3 (01:04→11:53)
[2019-07-23] MEDS: ACCU-CHEK COMFORT CURVE STRIP VI SCH ×6 (01:05→19:56)
[2019-07-23] MEDS: InsuLIN REG 1unit/0.01ml Soln (100units/ml) SC SCH ×7 (03:56→19:56)
[2019-07-23 04:35] LABS: Basophils # (auto) 0.1 10 ^3/uL (0-0.2); Basophils % (auto) 0.4 % (0.0-2.0); Eosinophils # (auto) 0 10 ^3/uL (0-0.8); Eosinophils % (auto) 0.1 % (0.0-7.0); Hematocrit 34.1 % (36.0-46.0); Hemoglobin 11.2 g/dL (12.2-16.2); Lymphocytes # (auto) 1.1 10 ^3/uL (0.4-5.4); Lymphocytes % (auto) 6.2 % (10.0-50.0); Mean Corpuscular Hemoglobin 28.7 pg (28.0-32.0); Mean Corpuscular Volume 87.1 fL (80.0-100.0); Monocytes # (auto) 0.9 10 ^3/uL (0-1.3); Monocytes % (auto) 5.3 % (0.0-12.0); Neutrophils # (auto) 14.9 10 ^3/uL (1.6-8.6); Nucleated Red Blood Cells % 0.2 %; Platelet Count (auto) 67 10^3/uL (140-450); Red Blood Cells 3.91 10^6/uL (4.0-5.20); Red Cell Distribution Width 18.6 % (11.8-14.3)
[2019-07-23 05:01] LABS: Anion Gap 16 (5-15); Blood Urea Nitrogen 67 mg/dL (7-18); Carbon Dioxide 20 mmol/L (21-32); Chloride 96 mmol/L (98-107); Glucose 145 mg/dL (74-106); Potassium 3.3 mmol/L (3.5-5.1); Sodium 132 mmol/L (136-145)
[2019-07-23 05:04] LABS: BUN/Creatinine Ratio 19.4; GFR African American 16 mL/min; GFR Non-African American 14 mL/min
[2019-07-23 05:24] LABS: Calcium 5.5 mg/dL (8.5-10.1)
[2019-07-23] MEDS: HYDROCORTISONE SOD SUCC 100 MG/2ML INJ VIAL IV SCH ×3 (06:30→22:04)
--- NOTE | 2019-07-23 07:30 | NUR ---
REPORT RECEIVED ASSUMING CARE
[2019-07-23] MEDS: NOREPINEPHRINE 8 MG/250ML KIT 250 ML IV PRN (09:40)
[2019-07-23] MEDS: MEROPENEM 500MG IVPB 50 ML IV SCH ×2 (09:57→22:04)
[2019-07-23] MEDS ORDERED: POTASSIUM CHL 20MEQ/100ML 100 ML IV ONE (11:30)
--- NOTE | 2019-07-23 11:58 | NUR ---
DR KWON AT BEDSIDE, GAVE ORDER TO DC LASIX MINDA
[2019-07-23] MEDS: VASOPRESSIN 50 UNITS in D5W 5% 247.5 ML IV SCH (12:00)
[2019-07-23] MEDS ORDERED: VANCOMYCIN 500 MG in D5W 5% 100 ML IV ONE (13:00)
--- NOTE | 2019-07-23 13:23 | NUR ---
SPOKE WITH GRAND BELIA FELIX, HAD PASSWORD, UPDATED ON PLAN OF CARE AND ALL QUESTIONS/CONCERNS ADDRESSED.
--- NOTE | 2019-07-23 13:24 | NUR ---
DR BRANDT IN UNIT SINCE THIS AM, ASSESSED PATIENT AND ORDERS OBTAINED. AWARE OF ABG RESULTS PER RT.
--- NOTE | 2019-07-23 13:55 | NUR ---
WOUND CARE NOTE: IN TO SEE PATIENT AT THIS TIME FOR WOUND REASSESSMENT. PATIENT HAS CURRENT LYSSA SCORE OF 14. SHE CONTINUES TO BE INTUBATED, RESTING ON LOW AIRLOSS ICU BED. PATIENT CONTINUES TO DISPLAY MASD WITH FULL THICKNESS SKIN EROSION AT COCCYX, SACRUM, BUTTOCKS, UPPER MEDIAL BILATERAL THIGHS. ERYTHEMA TO THE AREA IS MUCH IMPROVED. OPEN AREAS CONTINUE TO BE FULL THICKNESS AND PARTIAL THICKNESS. NEW PHOTOS TAKEN AT THIS TIME FOR REFERENCE. APPLIED DRESSINGS PER MD ORDER, PATIENT REPOSITIONED ONTO LEFT SIDE,REDISTRIBUTING PRESSURE POINTS USING PILLOWS/WEDGES. RECOMMEND: CONTINUATION WITH ALL WOUND CARE ORDERS PREVIOUSLY PRESCRIBED BY MD. WOUND CARE TEAM WILL CONTINUE TO MONITOR. Addendum: 07/23/19 at 1655 by Liudmila Bertrand RN Amended: Links added.
--- NOTE | 2019-07-23 15:35 | NUR ---
DR WOLF AT BEDSIDE
[2019-07-23] MEDS: fentaNYL Drip 2500mCg/250mlNS 250 ML IV SCH (17:11)
--- NOTE | 2019-07-23 18:00 | NUR ---
SPOKE WITH GRAND BELIA FELIX, HAD PASSWORD, UPDATED ON PLAN OF CARE AND ALL QUESTIONS/CONCERNS ADDRESSED
--- NOTE | 2019-07-23 18:30 | NUR ---
ORDER FOR CPAP IN AM FROM DR BRANDT
[2019-07-23] MEDS: PROPOFOL 100 ML IV SCH (19:30)
--- NOTE | 2019-07-23 19:30 | NUR ---
OPENING SHIFT RECEIVED REPORT FROM DAY SHIFT RN. ASSUMED CARE OF PATIENT. PATIENT INTUBATED AND SEDATED WITH NO SIGNS OR SYMPTOMS OF SOB, PAIN OR DISTRESS. RIGHT UPPER ARM MIDLINE, RIGHT FEMORAL ARTERIAL LINE, RIGHT UPPER CHEST PORTACATH - CLEAN/DRY/INTACT. MENDOZA HUNG TO GRAVITY. REPOSITIONED FOR COMFORT. BED IN LOWEST POSITION, SIDE RAILS UP X2. SEDATION: FENTANYL - 50MCG/HR VASOPRESSOR: LEVOPHED - 2MCG/MIN WILL CONTINUE TO MONITOR.
[2019-07-24] VITALS (68 sets, daily range): BP systolic 97–165; BP diastolic 30–62
[2019-07-24] MEDS: ACCU-CHEK COMFORT CURVE STRIP VI SCH ×6 (00:10→20:06)
[2019-07-24] MEDS: InsuLIN REG 1unit/0.01ml Soln (100units/ml) SC SCH ×6 (00:10→20:00)
[2019-07-24] MEDS: PHENYLEPHRINE IV 250 ML IV SCH ×3 (01:17→17:57)
--- NOTE | 2019-07-24 04:15 | NUR ---
MORNING CARE PERFORMED MORNING CARE WITH CHG WIPES AND WASH CLOTHS TO THE FACE. GOWN CHANGED AND PARTIAL LINEN CHANGED. REPOSITIONED FOR COMFORT. SKIN REASSESSED AT THIS TIME, APPLIED Z GUARD TO WOUNDS. MENDOZA AND ORAL CARE PERFORMED. WILL CONTINUE TO MONITOR.
[2019-07-24] MEDS: HYDROCORTISONE SOD SUCC 100 MG/2ML INJ VIAL IV SCH ×2 (05:37→21:39)
--- NOTE | 2019-07-24 06:32 | NUR ---
SPOKE WITH GRAND DAUGHTER (ELVIRA) PASSWORD VERIFIED. UPDATED GRAND DAUGHTER ON PLAN OF CARE. ALL QUESTIONS AND CONCERNS ANSWERED AND ADDRESSED.
--- NOTE | 2019-07-24 07:28 | NUR ---
END OF SHIFT REPORT GIVEN TO DAY SHIFT RN. CARE ENDORSED.
--- NOTE | 2019-07-24 09:05 | NUR ---
CPAP TRIAL Patient placed on CPAP mode per RT Morton.
--- NOTE | 2019-07-24 09:05 | NUR ---
CPAP TRIAL INITIATED AT THIS TIME. PS 8, PEEP5, 35% FIO2. PT AWAKE, OFF SEDATION, AND FOLLOWS COMMANDS.
[2019-07-24] MEDS: MEROPENEM 500MG IVPB 50 ML IV SCH ×2 (09:49→21:39)
--- NOTE | 2019-07-24 09:59 | NUR ---
LUNG MECHANICS ON CPAP: NIF -21 VC 1200ml RSBI 19 LEAK TEST 223
--- NOTE | 2019-07-24 10:00 | NUR ---
SEDATION Sedation turned off for extubation.
--- NOTE | 2019-07-24 10:10 | NUR ---
WEANING PARAMETERS AND ABG RESULTS ON CPAP READ TO DR BRANDT. PT EXTUBATED AT THIS TIME PER MD ORDERS. PT PLACED ON 40% COOL MIST AEROSOL MASK. SPO2 95%, HR 82, RR 25. NO S/S OF RESPIRATORY DISTRESS. NO STRIDOR.
--- NOTE | 2019-07-24 10:12 | NUR ---
EXTUBATION Patient extubated by Selene RT per MD orders. Patient placed on simple mask cool mist sating 95%.
--- NOTE | 2019-07-24 11:04 | NUR ---
Nutrition Followup Notes WT: 87.9 kg Pt`s on CPAP trial when rounded this am with RT and RN by bedside. pt is currently NPO with no new diet orders Est Energy needs: 1544-9838 kcals (20-23 kcal/kgBW), Est Protein needs: 47-59 gms/day (0.6-0.75 gm/kgBW). Will continue to monitor and reassess prn. LABS: CREAT 3.47 H, ALBB 1.3 L. GI: Pt had 1 BM 07/22 per RN doc. BS: 14 mod risk. Please refer to wound assessment report for full details. PES: Altered nutrition related lab values r.t current chronic medical condition aeb elev RFTs, Stg 4 CKD, hyperglycemia,hypocalcemia, low LFTs, dyslipidemia, severe hypoalbuminemia Increased nutrient needs r/t pt with no PO intake aeb pt sedated, intubated, NPO Rec: 1) Continue to closely monitor pt NPO status. 2) If pt remains NPO for the next 48 hours, consider EN nutrition support Jevity 1.2 @ 60 ml/hr goal rate. 3) advance pt to oral diet when medically feasible and as tolerated. 4) Continue current plan of care. F/u high 2-3 days
[2019-07-24] MEDS: VASOPRESSIN 50 UNITS in D5W 5% 247.5 ML IV SCH (12:00)
[2019-07-24] MEDS: fentaNYL Drip 2500mCg/250mlNS 250 ML IV SCH (13:15)
--- NOTE | 2019-07-24 20:29 | NUR ---
SPOKE WITH DR. SULLIVAN UPDATED HIM ON PATIENT STATUS. RECEIVED ORDERS TO DOWNGRADE TO [facility].
--- NOTE | 2019-07-24 21:40 | NUR ---
RIGHT FEMORAL ARTERIAL LINE DC. CATHETER INTACT. PRESSURE HELD. NO SIGNS OR SYMPTOMS OF HEMATOMA. DRESSED WITH PRESSURE TAPE AND GAUZE. WILL CONTINUE TO MONITOR.
[2019-07-25] VITALS (11 sets, daily range): BP systolic 91–117; BP diastolic 41–54
[2019-07-25] MEDS: ACCU-CHEK COMFORT CURVE STRIP VI SCH ×7 (00:20→23:50)
[2019-07-25] MEDS: InsuLIN REG 1unit/0.01ml Soln (100units/ml) SC SCH ×7 (00:20→23:49)
[2019-07-25 04:29] LABS: Basophils # (auto) 0.1 10 ^3/uL (0-0.2); Basophils % (auto) 0.6 % (0.0-2.0); Eosinophils # (auto) 0 10 ^3/uL (0-0.8); Eosinophils % (auto) 0.3 % (0.0-7.0); Hematocrit 32.8 % (36.0-46.0); Hemoglobin 10.9 g/dL (12.2-16.2); Lymphocytes # (auto) 0.7 10 ^3/uL (0.4-5.4); Lymphocytes % (auto) 4.4 % (10.0-50.0); Mean Corpuscular Hemoglobin 29.1 pg (28.0-32.0); Mean Corpuscular Hgb Conc. 33.1 g/dL (32.0-36.0); Mean Corpuscular Volume 87.8 fL (80.0-100.0); Monocytes # (auto) 0.5 10 ^3/uL (0-1.3); Neutrophils # (auto) 14.7 10 ^3/uL (1.6-8.6); Neutrophils % (auto) 91.7 % (37.0-80.0); Nucleated Red Blood Cells % 0.1 %; Platelet Count (auto) 71 10^3/uL (140-450); Red Blood Cells 3.73 10^6/uL (4.0-5.20); Red Cell Distribution Width 18.7 % (11.8-14.3)
[2019-07-25 04:49] LABS: BUN/Creatinine Ratio 26.2
[2019-07-25 05:17] LABS: Calcium 5.9 mg/dL (8.5-10.1); Potassium 2.3 mmol/L (3.5-5.1)
--- NOTE | 2019-07-25 06:00 | NUR ---
TRANSFER TO [facility] REPORT GIVEN TO BRYANT Chandra RN, CARE ENDORSE. 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 ALL BELONGINGS SENT WITH PATIENT. PATIENT ORIENTED TO ENVIRONMENT AND RN. ALL QUESTIONS AND CONCERNS ADDRESSED.
--- NOTE | 2019-07-25 06:29 | NUR ---
SPOKE WITH GRAND DAUGHTER (ELVIRA) PASSWORD VERIFIED. UPDATED GRAND DAUGHTER ON PATIENT STATUS AND NEW ROOM LOCATION. ALL QUESTIONS AND CONCERNS ADDRESSED AND ANSWERED.
[2019-07-25] MEDS: POTASSIUM CHL 20MEQ/100ML 100 ML IV SCH ×2 (07:20→09:37)
--- NOTE | 2019-07-25 07:30 | NUR ---
RECEIVED PATIENT SEMI FOWLERS IN BED, EYES OPEN AND SPOKE WHEN I SAID HER NAME, SCD OFF AT THIS TIME, O2 AT 2L BY N/C, MENDOZA TO GRAVITY, DENIES PAIN, DOMINGO CATH TO THE RT CHEST AND MIDLINE TO THE IHSAN, SHE ALSO HAS AT DRAIN TO THE RT LATERAL CHEST WHICH IS CLAMPED
--- NOTE | 2019-07-25 08:30 | NUR ---
PATIENT IS A/O TIMES 3-4 WHEN YOU TALK TO HER, IS PASSIVE AND NOT VERY TALKATIVE,BUT ANSWERS YOUR QUESTIONS
[2019-07-25] MEDS: HYDROCORTISONE SOD SUCC 100 MG/2ML INJ VIAL IV SCH ×2 (09:37→21:26)
[2019-07-25] MEDS: MEROPENEM 500MG IVPB 50 ML IV SCH ×2 (09:37→21:26)
--- NOTE | 2019-07-25 09:40 | NUR ---
MEDICATIONS EXPLAIN TO THE PATIENT REGARDING THE DOSAGE, USAGE AND THE SIDE EFFECTS, STATES SHE UNDERSTOOD AND MEDS GIVEN ORDERED
--- NOTE | 2019-07-25 10:30 | NUR ---
SEMI FOWLERS IN BED WITH EYES CLOSED, NO COMPLAINTS
--- NOTE | 2019-07-25 11:30 | NUR ---
GRANDDAUGHTER CALLED AND PATIENT SPOKE TO HER OVER THE PHONE
--- NOTE | 2019-07-25 12:30 | NUR ---
EXPRESS TO HER THAT SHE HAS A SWALLOW EVAL TODAY AND AFTER THAT MAYBE SHE CAN EAT
--- NOTE | 2019-07-25 13:35 | NUR ---
DR BRANDT INTO SEE THE PATIENT AND GLAD THAT SHE IS ONLY ON 2-3 LITERS OF O2 BY N/C
[2019-07-25] MEDS ORDERED: VANCOMYCIN 500 MG in D5W 5% 100 ML IV ONE (14:00)
--- NOTE | 2019-07-25 14:30 | NUR ---
PATIENT HAD A LARGE BM LIQUID SHE IS INCONTINENT, WOUNDS CLEANED WITH SKIN POWER TRANSFORMER INSPECTOR AND PATTED DRY AND Z-GUARD APPLIED TO BUTTOCKS, SACRUM AND INNER THIGHS
--- NOTE | 2019-07-25 15:30 | NUR ---
HOB ELEVATED AND SHE IS LOOKING OUT THE WINDOW STATES SHE IS DOING OKAY
--- NOTE | 2019-07-25 16:42 | NUR ---
PATIENT IS SEMI FOWLERS IN BED AND DOING OKAY SHE SAYS
--- NOTE | 2019-07-25 17:20 | NUR ---
DR WOLF CARDIO IN TO SEE THE PATIENT
--- NOTE | 2019-07-25 17:50 | NUR ---
DR SULLIVAN INTO SEE THE PATIENT
--- NOTE | 2019-07-25 18:30 | NUR ---
PATIENT TALKING MORE TONIGHT ASKING ABOUT THE STAFF DN WHO IS GOING TO BE WITH HER TONIGHT, ALL QUESTIONS WERE ASK, IHSAN MIDLINE INTACT AND PATENT AND DOMINGO CATH INTACT AND PATENT, DRAIN TO THE RT LATERAL CHEST STILL IN PLACE, MENDOZA TO GRAVITY, WILL CONTINUE TO MONITOR AND GIVE REPORT TO THE NEXT SHIFT
--- NOTE | 2019-07-25 22:28 | NUR ---
PT APPEARS TO BE RESTING NO DISTRESS NOTED. BREATHING EVEN AND UNLABORED. VSS. WILL CONTINUE TO MONITOR.
[2019-07-26 03:27] LABS: Hematocrit 35.1 % (36.0-46.0); Hemoglobin 11.3 g/dL (12.2-16.2); Mean Corpuscular Hemoglobin 28.5 pg (28.0-32.0); Mean Corpuscular Hgb Conc. 32.2 g/dL (32.0-36.0); Mean Corpuscular Volume 88.5 fL (80.0-100.0); Platelet Count (auto) 86 10^3/uL (140-450); Red Blood Cells 3.97 10^6/uL (4.0-5.20); Red Cell Distribution Width 19.6 % (11.8-14.3); White Blood Cell 23.8 10^3/uL (4.4-10.8)
[2019-07-26 03:40] LABS: Basophils % (manual) 0 (0.0-2.0); Blast Cells 0; Eosinophils % (manual) 0 (0-7); Metamyelocytes % 0; Myelocytes % 0; Promyelocytes % 0; Reactive Lymphocytes 0
[2019-07-26 03:42] LABS: Albumin 1.5 g/dL (3.4-5.0); Calcium 6.5 mg/dL (8.5-10.1)
[2019-07-26 03:45] LABS: BUN/Creatinine Ratio 28.3; Bilirubin, Total 0.9 mg/dL (0.2-1.0); Total Protein 5.2 g/dL (6.4-8.2)
[2019-07-26] MEDS: InsuLIN REG 1unit/0.01ml Soln (100units/ml) SC SCH ×5 (03:49→20:45)
[2019-07-26] MEDS: ACCU-CHEK COMFORT CURVE STRIP VI SCH ×5 (03:58→20:40)
[2019-07-26 03:59] LABS: Potassium 2.9 mmol/L (3.5-5.1)
--- NOTE | 2019-07-26 04:04 | NUR ---
MD OTTO CALLED MD SULLIVAN EXCHANGE AND INFO LEFT REGARDING LAB VALUES THIS MORNING.
--- NOTE | 2019-07-26 04:49 | NUR ---
PT REFUSED BATH STATED DID NOT WANT BATH. REPOSITIONED AND EDUCATED ON NEED FOR TURNING. CALL LIGHT WITHIN REACH WILL CONTINUE TO MONITOR.
--- NOTE | 2019-07-26 04:53 | NUR ---
SECOND PAGE TO MD LEFT MESSAGE IN MD EXCHANGE. WILL CONTINUE TO MONITOR PT.
[2019-07-26 06:15] LABS: Band Neutrophils % (manual) 7
[2019-07-26] MEDS ORDERED: POTASSIUM CHL 20 Meq TABLET PO ONE (06:15)
[2019-07-26 06:16] LABS: Lymphocytes % (manual) 3 (10.0-50.0); Monocytes % (manual) 3 (0-12)
[2019-07-26] MEDS: POTASSIUM CHL 20MEQ/100ML 100 ML IV SCH ×2 (06:33→08:32)
--- NOTE | 2019-07-26 07:30 | NUR ---
RECEIVED PATIENT SITTING UP IN THE BED, A/O TIMES 3, O2 AT 2.5L BY N/C, MENDOZA TO GRAVITY, DOMINGO CATH WITH POTASSIUM INFUSING AND MIDLINE WITH NS AT 10ML/HR BY THE IV PUMP, SCDS' TO MARTITA LEGS, NO COMPLAINTS OF PAIN
[2019-07-26 07:45] VITALS: BP 110/49
--- NOTE | 2019-07-26 08:45 | NUR ---
DR BRANDT IN TO SEE THE PATIENT AND STATED THE LUNGS SOUND CLEAR AND SHE IS DOING BETTER
[2019-07-26] MEDS: HYDROCORTISONE SOD SUCC 100 MG/2ML INJ VIAL IV SCH ×2 (09:29→22:26)
--- NOTE | 2019-07-26 09:30 | NUR ---
EXPLAIN MEDICATIONS TO THE PATIETN REGARDING THE DOSAGE, USAGE AND THE SIDE EFFECTS, VERBALIZED THAT SHE UNDERSTOOD AND MEDS GIVEN ORDERED
[2019-07-26] MEDS ORDERED: POTASSIUM CHLORIDE 20 MEQ in D5W/SOD CHL 0.45% 1,000 ML IV SCH (10:30)
--- NOTE | 2019-07-26 10:40 | NUR ---
DR SULLIVAN IN TO SEE THE PATENT
[2019-07-26] MEDS: MEROPENEM 500MG IVPB 50 ML IV SCH ×2 (10:43→22:27)
--- NOTE | 2019-07-26 11:40 | NUR ---
PATIENT SITTING UP IN THE BED, ASKING FOR SHRIMP, EXPRESS TO HER THAT WE DON'T HAVE ANY SHRIMP AND WE HAVE TO WAIT FOR HER TO HAVE A SWALLOW EVAL
[2019-07-26 11:50] VITALS: BP 122/54
[2019-07-26] MEDS: D5W/SOD CHL 0.45%/KCL 20MEQ 1,000 ML IV SCH (12:00)
--- NOTE | 2019-07-26 12:20 | NUR ---
DAUGHTER CALLED TO TALK WITH THE PATIENT
--- NOTE | 2019-07-26 13:30 | NUR ---
PATIENT WATCHING TV AND TALKING TO THE PEOPLE THAT ARE RIOTING TELLING THEM TO STOP
--- NOTE | 2019-07-26 14:30 | NUR ---
NO COMPLAINTS OF PAIN, OR SOB NOTED
--- NOTE | 2019-07-26 15:22 | NUR ---
SWALLOW EVALUATED. PATIENT HAS NATURAL TEETH, UPPER AND LOWER. PATIENT ABLE TO TOLERATE MECHANICAL SOFT DIET TEXTURE WITH THIN LIQUIDS WITH NO OVERT SIGNS OR SYMPTOM OF ASPIRATION. NURSING NOTIFIED.
[2019-07-26 15:40] VITALS: BP 128/61
[2019-07-26 15:44] LABS: BUN/Creatinine Ratio 29.5; Calcium 6.9 mg/dL (8.5-10.1); Potassium 3.4 mmol/L (3.5-5.1)
--- NOTE | 2019-07-26 15:59 | NUR ---
Nutrition Followup Notes WT: 84.0 kg Pt diet advanced to mechanical soft following swallow eval 07/25. Pt has not had po intake since diet order change per RN doc. Est Energy needs: 4591-8107 kcals (20-23 kcal/kgBW), Est Protein needs: 47-59 gms/day (0.6-0.75 gm/kgBW). Will continue to monitor and reassess prn. LABS: BUN 79H, Creat 2.68H, GLUC 158H, Ca 6.5L, Alb 1.5L GI: Pt had 1 BM 07/24 per RN doc. BS: 11 high risk. Please refer to wound assessment report for full details. PES: Altered nutrition related lab values r.t current chronic medical condition aeb elev RFTs, Stg 4 CKD, hyperglycemia,hypocalcemia, low LFTs, dyslipidemia, severe hypoalbuminemia Partially resolved, pt diet advanced to mech soft, po intake has not been recorded yet: Increased nutrient needs r/t pt with no PO intake aeb pt sedated, intubated, NPO Rec: 1) Continue to advance diet as medically feasible, monitor po intake now that pt diet has advanced to mechanical soft. 2) Pt po intake of >75% 3) Continue current plan of care. F/u mod 3-5days
--- NOTE | 2019-07-26 16:43 | NUR ---
DR JACKSON SHEET MILL SUPERVISOR IN TO SEE THE PATIENT
[2019-07-26] MEDS ORDERED: POTASSIUM CHLORIDE 40 MEQ, LIDOCAINE 1% (LOCAL ANESTH.) 4 ML in SODIUM CHL 0.9% 100 ML IV ONE (17:00)
--- NOTE | 2019-07-26 17:51 | NUR ---
WATCHING TV, NO COMPLAINS
--- NOTE | 2019-07-26 18:30 | NUR ---
PATIENT WAS FEED HER DINNER AND STARTED COUGHING WHEN SHE WAS GIVEN LIQUIDS, INSTEAD OF SWALLOWING SHE WAS SWISHING IT AROUND IN THER MOUTH UNTIL WE TOLD HER TO SWALLOW, POTASSIUM INFUSING INTO THE DOMINGO CATH SITE, BY THE IV PUMP, MENDOZA TO GRAVITY, SCD'S TO MARTITA LEGS, O2 AT 2.5L THE N/C, HEART RATE INCREASED TO 120'S AFTER PATIENT WAS COUGHING, ASK IF SHE HAD ANYTHING IN HER THROAT AND SHE STATED NO, WILL CONTINUE TO MONITOR AND GIVE REPORT TO THE NEXT SHIFT
[2019-07-26 20:00] VITALS: BP 122/54
--- NOTE | 2019-07-26 20:15 | NUR ---
Patient bathe/linen change Patient given bath with chlorhexidine wipes . Skin integrity assessed for any changes. Partial linens changed. Patient repositioned for comfort.
--- NOTE | 2019-07-26 20:30 | NUR ---
DRESSING CHANGED RT.lateral chest pigtail drain site dressing change done with a sterile technique. Cleansed with chloraprep scrub/betadine. bio-patch applied. Occlusive dressing applied.
[2019-07-26] MEDS ORDERED: HYDROCORTISONE SOD SUCC 100 MG/2ML INJ VIAL ONE (22:20)
[2019-07-27] VITALS: BP 111/53
[2019-07-27] MEDS: D5W/SOD CHL 0.45%/KCL 20MEQ 1,000 ML IV SCH ×2 (01:20→13:45)
[2019-07-27 04:00] VITALS: BP 121/57
[2019-07-27] MEDS: InsuLIN REG 1unit/0.01ml Soln (100units/ml) SC SCH ×6 (04:04→20:56)
[2019-07-27] MEDS: ACCU-CHEK COMFORT CURVE STRIP VI SCH ×6 (04:04→20:54)
[2019-07-27 07:40] VITALS: BP 124/55
--- NOTE | 2019-07-27 08:30 | NUR ---
Opening Shift Note Assumed care of patient, awake and oriented to self, follows simple commands, re-orientation done. No S/S of distress/SOB or pain. See interventions for complete assessment. Bed locked on low position, side rails up x2, bed alarms on at all times, call quezada within reach, instructed on POC and to call for assist PRN, will continue to monitor for changes Q1hr and PRN.
--- NOTE | 2019-07-27 09:45 | NUR ---
Dr López at bedside, updated on patient's status. Patient seen and examined. Will carry out new orders.
--- NOTE | 2019-07-27 09:50 | NUR ---
RT Pleurx dressing dry and intact.
--- NOTE | 2019-07-27 10:00 | NUR ---
Patient had large amount of soft, dark brown stool, given perineal care. Skin integrity assessed for any changes. Linens changed. Sacral optifoam dressings changed. Patient repositioned for comfort.
[2019-07-27] MEDS: HYDROCORTISONE SOD SUCC 100 MG/2ML INJ VIAL IV SCH (10:11)
[2019-07-27] MEDS: MEROPENEM 500MG IVPB 50 ML IV SCH ×2 (10:11→21:17)
--- NOTE | 2019-07-27 11:30 | NUR ---
Dr Watson at bedside, updated on patient's status. Patient seen and examined. Will carry out new orders.
[2019-07-27 11:40] VITALS: BP 103/58
--- NOTE | 2019-07-27 12:10 | NUR ---
Received call from patient's [facility] Lupe who's able to provide password. Updated on patient's status and POC. All questions and concerns addressed.
--- NOTE | 2019-07-27 13:45 | NUR ---
RT chest Pleurx drained with resident physician in radiology Sandra. Drained 450ml serosanguinous. Patient tolerated procedure well. HR 108, RR 20, BP 117/57, saturation 97% at 3 LPM oxygen via nasal cannula. Will continue to monitor.
[2019-07-27] MEDS ORDERED: VANCOMYCIN 500 MG in D5W 5% 100 ML IV ONE (14:00)
[2019-07-27 15:40] VITALS: BP 121/58
--- NOTE | 2019-07-27 15:50 | NUR ---
Dr. Carranza at bedside, updated on patient's status. Patient seen and examined. Will carry out new orders.
--- NOTE | 2019-07-27 16:00 | NUR ---
Dr Toth at bedside, updated on patient's status. Patient seen and examined. Received verbal order to start patient on Megestrol to increase appetite, CBC and BMP daily, and transfer patient to Tele floor. Orders read back and verified. Will carry out.
[2019-07-27] MEDS ORDERED: MEGESTROL ACET 400MG/10ML ORAL SUSP PO ONE (16:30)
--- NOTE | 2019-07-27 18:14 | NUR ---
Lab results still pending.
[2019-07-27 18:16] LABS: Basophils # (auto) 0.1 10 ^3/uL (0-0.2); Basophils % (auto) 0.4 % (0.0-2.0); Eosinophils # (auto) 0.1 10 ^3/uL (0-0.8); Eosinophils % (auto) 0.5 % (0.0-7.0); Hematocrit 31.4 % (36.0-46.0); Hemoglobin 10.1 g/dL (12.2-16.2); Lymphocytes # (auto) 0.7 10 ^3/uL (0.4-5.4); Lymphocytes % (auto) 4.4 % (10.0-50.0); Mean Corpuscular Hemoglobin 29.2 pg (28.0-32.0); Mean Corpuscular Hgb Conc. 32.1 g/dL (32.0-36.0); Monocytes # (auto) 0.7 10 ^3/uL (0-1.3); Monocytes % (auto) 4.2 % (0.0-12.0); Neutrophils # (auto) 14.6 10 ^3/uL (1.6-8.6); Neutrophils % (auto) 90.5 % (37.0-80.0); Nucleated Red Blood Cells % 0.3 %; Platelet Count (auto) 65 10^3/uL (140-450); Red Blood Cells 3.45 10^6/uL (4.0-5.20); Red Cell Distribution Width 19.9 % (11.8-14.3); White Blood Cell 16.1 10^3/uL (4.4-10.8)
[2019-07-27 18:38] LABS: BUN/Creatinine Ratio 33.3
--- NOTE | 2019-07-27 19:30 | NUR ---
OPENING NOTE REPORT RECEIVED FROM DAY SHIFT RN PATIENT IS A/OX4 AT THIS TIME,ABLE TO ANSWER ALL QUESTIONS APPROPRIATELY. PATIENT CONNECTED TO CONTINUOUS MONITORS, HEART RATE IN LOW 100'S, SPO2 AT 98% ON 3L NASAL CANNULA. MULTIPLE SKIN INTEGRITY ISSUES NOTED-SEE PHYSICAL ASSESSMENT. BILATERAL SCD'S IN PLACE. RIGHT CHEST PLEUREX DRAIN NOTED. RIGHT UPPER CHEST PORT A CATH IN PLACE. RIGHT UPPER ARM MIDLINE. MENDOZA NOTED DRAINING CLEAR YELLOW URINE. FALL PRECAUTIONS IN PLACE, CALL LIGHT WITHIN REACH.
[2019-07-27 20:00] VITALS: BP 120/63
--- NOTE | 2019-07-27 21:15 | NUR ---
ENDORSED CARE REPORT GIVEN TO MESHA ZARATE
--- NOTE | 2019-07-27 22:18 | NUR ---
Report given to MESHA Shields.
--- NOTE | 2019-07-27 23:23 | NUR ---
Pt received via hospital bed from [facility]. Bed rail at L FOB lowered. Pt A&Ox4. Denies pain. 4+ generalized edema. Pleur evac 'pigtail' tube capped; sero-sanguinous fluid inside tubing.
--- NOTE | 2019-07-27 23:23 | NUR ---
Patient transferred to 297 A via bed on portable monitor and 3L NC in stable condition. Care endorsed to MESHA Shields.
[2019-07-28] VITALS (8 sets, daily range): BP systolic 110–125; BP diastolic 53–73
[2019-07-28] MEDS: D5W/SOD CHL 0.45%/KCL 20MEQ 1,000 ML IV SCH ×2 (01:01→16:15)
[2019-07-28] MEDS: InsuLIN REG 1unit/0.01ml Soln (100units/ml) SC SCH ×6 (04:00→20:26)
[2019-07-28] MEDS: ACCU-CHEK COMFORT CURVE STRIP VI SCH ×6 (04:00→20:25)
--- NOTE | 2019-07-28 07:30 | NUR ---
Opening Note Assumed pt care from NOC RN. Pt is a/ox4 with mild periods of confusion noted. Pt is currently sitting upright in bed with no complaints at this time. Pt is currently on 3L via NC, castro catheter present, draining to gravity, pluracath present to pt's R side; dressing is clean, dry and intact. No drainage noted in pleuracath tubing. Discussed POC with pt; pt verbalized understanding. Safety measures maintained with call light within reach, bed in lowest position and side rails up. Will continue to monitor for changes.
[2019-07-28] MEDS: HYDROCORTISONE SOD SUCC 100 MG/2ML INJ VIAL IV SCH (08:51)
[2019-07-28] MEDS: MEGESTROL ACET 400MG/10ML ORAL SUSP PO SCH (08:51)
[2019-07-28] MEDS: MEROPENEM 500MG IVPB 50 ML IV SCH (09:43)
--- NOTE | 2019-07-28 10:13 | NUR ---
Dr Toth at Bedside MD to see pt. Discussed POC with pt. New orders given, read back and verified. MD requested that I notify family of d/c planning hopefully for 07/31/2019. Will implement.
--- NOTE | 2019-07-28 10:21 | NUR ---
Dr López at Bedside MD requests that we drain pleurvac 2x a week. Since it was drained 07/27/2019, MD requests next drainage to be 07/30/2019. Will continue to monitor.
--- NOTE | 2019-07-28 11:28 | NUR ---
Wound Care Complete Wound care complete. Dressings to sacrum are clean, dry and intact. Dressing reinforced. Pt tolerated well. Will continue to monitor.
[2019-07-28 11:54] LABS: Hemoglobin 10.9 g/dL (12.2-16.2); Monocytes # (auto) 0.6 10 ^3/uL (0-1.3); Neutrophils # (auto) 13.6 10 ^3/uL (1.6-8.6); White Blood Cell 15.1 10^3/uL (4.4-10.8)
[2019-07-28 11:56] LABS: Basophils # (auto) 0 10 ^3/uL (0-0.2); Basophils % (auto) 0.2 % (0.0-2.0); Eosinophils # (auto) 0.4 10 ^3/uL (0-0.8); Eosinophils % (auto) 2.6 % (0.0-7.0); Lymphocytes # (auto) 0.5 10 ^3/uL (0.4-5.4); Mean Corpuscular Hemoglobin 29.5 pg (28.0-32.0); Mean Corpuscular Volume 91.9 fL (80.0-100.0); Monocytes % (auto) 4.2 % (0.0-12.0); Nucleated Red Blood Cells % 0.3 %; Platelet Count (auto) 47 10^3/uL (140-450); Red Cell Distribution Width 19.9 % (11.8-14.3)
--- NOTE | 2019-07-28 12:03 | NUR ---
Pt Reports Feelings of Inability to Breathe Pt states that she feels like she cannot breathe. Raised HOB to high fowlers and O2 is at 4L via NC. Assessed pt's O2 saturation; currently at 96%. Asked if pt was anxious, she stated "no...I cannot breathe". Encouraged pt to take deep breaths. At this time, pt's respirations are unlabored and even; no shallow breaths noted. Will continue to monitor and asses respiratory needs.
[2019-07-28 12:10] LABS: Albumin 1.4 g/dL (3.4-5.0); Calcium 7.2 mg/dL (8.5-10.1); Potassium 3.9 mmol/L (3.5-5.1)
[2019-07-28 12:13] LABS: Bilirubin, Total 0.8 mg/dL (0.2-1.0); Total Protein 4.9 g/dL (6.4-8.2)
--- NOTE | 2019-07-28 14:00 | NUR ---
HOLD P.T. BECAUSE OF PATIENT'S DIFFICULTY TO BREATH. RN PRESENT AND AWARE.
--- NOTE | 2019-07-28 16:11 | NUR ---
I faxed order for pleurex supplies to [facility] (phone number [phone] fax number [phone]).
[2019-07-28] MEDS ORDERED: ALBUTEROL SULF 2.5 MG/0.5ML(0.5%) NEB SOLN NEB PRN (21:45)
[2019-07-28] MEDS: MEROPENEM 1GM IVPB 100 ML IV SCH (22:50)
[2019-07-29] MEDS: ACCU-CHEK COMFORT CURVE STRIP VI SCH ×6 (00:13→19:57)
[2019-07-29] MEDS: InsuLIN REG 1unit/0.01ml Soln (100units/ml) SC SCH ×6 (04:33→19:57)
[2019-07-29 05:10] VITALS: BP 118/54
[2019-07-29] MEDS: D5W/SOD CHL 0.45%/KCL 20MEQ 1,000 ML IV SCH ×2 (06:21→18:45)
--- NOTE | 2019-07-29 06:32 | NUR ---
Family Requesting Neuro Consult Spoke with patient's granddaughter Lupe after password verification. Per patient's granddaughter, patient is not the same as she was before arriving to hospital, states patient speaks in short sentences and is forgetful. Patient's granddaughter requesting Neurology consult. Will endorse to AM nurse.
[2019-07-29 08:39] LABS: Eosinophils # (auto) 0.4 10 ^3/uL (0-0.8); Eosinophils % (auto) 3.2 % (0.0-7.0); Mean Corpuscular Hgb Conc. 31.7 g/dL (32.0-36.0); Red Blood Cells 3.38 10^6/uL (4.0-5.20); Red Cell Distribution Width 19.7 % (11.8-14.3)
[2019-07-29 08:40] LABS: Basophils # (auto) 0 10 ^3/uL (0-0.2); Basophils % (auto) 0.4 % (0.0-2.0); Hematocrit 31.2 % (36.0-46.0); Hemoglobin 9.9 g/dL (12.2-16.2); Lymphocytes # (auto) 0.7 10 ^3/uL (0.4-5.4); Lymphocytes % (auto) 6.2 % (10.0-50.0); Mean Corpuscular Hemoglobin 29.3 pg (28.0-32.0); Mean Corpuscular Volume 92.4 fL (80.0-100.0); Monocytes # (auto) 0.6 10 ^3/uL (0-1.3); Monocytes % (auto) 5.5 % (0.0-12.0); Neutrophils # (auto) 9.6 10 ^3/uL (1.6-8.6); Neutrophils % (auto) 84.7 % (37.0-80.0); Nucleated Red Blood Cells % 0.2 %; Platelet Count (auto) 34 10^3/uL (140-450); White Blood Cell 11.3 10^3/uL (4.4-10.8)
[2019-07-29 08:54] LABS: Albumin 1.3 g/dL (3.4-5.0); BUN/Creatinine Ratio 42.5; Potassium 3.9 mmol/L (3.5-5.1)
[2019-07-29 08:57] LABS: Bilirubin, Total 0.7 mg/dL (0.2-1.0); Total Protein 4.7 g/dL (6.4-8.2)
[2019-07-29 09:00] VITALS: BP 118/62
[2019-07-29] MEDS: HYDROCORTISONE SOD SUCC 100 MG/2ML INJ VIAL IV SCH (10:38)
[2019-07-29] MEDS: MEGESTROL ACET 400MG/10ML ORAL SUSP PO SCH (10:38)
[2019-07-29] MEDS: MEROPENEM 1GM IVPB 100 ML IV SCH ×2 (10:38→21:51)
--- NOTE | 2019-07-29 11:04 | NUR ---
Nutrition Followup Notes WT: 89.4 kg Pt reports appetite is good, per RN doc pt po intake is inadequate aeb pt po 8.75% x 2 days. Consider adding oral supplement to increase calories if pt po intake continues to be low. Est Energy needs: 8122-2030 kcals (20-23 kcal/kgBW), Est Protein needs: 47-59 gms/day (0.6-0.75 gm/kgBW). Will continue to monitor and reassess prn. LABS: BUN 62H, Creat 1.46H, Gluc 144H, Alb 1.3L, Ca 7.0L GI: Pt had 2 BM 6/5 per RN doc. BS: 16 mod risk. Please refer to wound assessment report for full details. PES: Altered nutrition related lab values r.t current chronic medical condition aeb elev RFTs, Stg 4 CKD, hyperglycemia,hypocalcemia, low LFTs, dyslipidemia, severe hypoalbuminemia Partially resolved, pt diet advanced to mech soft, po intake has not been recorded yet: Increased nutrient needs r/t pt with no PO intake aeb pt sedated, intubated, NPO Rec: 1) Continue to advance diet as medically feasible, monitor po intake now that pt diet has advanced to mechanical soft. 2) Pt po intake of >75% 3) If pt po intake continues to be low consider adding Nepro BID 4) Continue current plan of care. F/u mod 3-5days
--- NOTE | 2019-07-29 12:38 | NUR ---
PATIENT HAD LARGE BM. DRESSINGS CHANGED DUE TO SATURATION. PATIENT TOLERATED WELL. WILL CONTINUE TO TURN [id number].
[2019-07-29 13:00] VITALS: BP 127/62
[2019-07-29] MEDS ORDERED: VANCOMYCIN 500 MG in D5W 5% 100 ML IV ONE (14:00)
--- NOTE | 2019-07-29 14:34 | NUR ---
re-assessment Per ss consult dc planning for Thursday. Per patients granddaughter Katlyn patient is returning home on discharge. Patient will need to resume home health with [facility]. Katlyn is concerned about patient retuning home with Sepsis not cleared up. Katlyn is wanting to speak with Dr Toth about home IV ABX. Katlyn is refusing SNF. Waiting on discharge now. Addendum: 07/29/19 at 1436 by Genet Castano Amended: Links added.
[2019-07-29 16:54] VITALS: BP 119/51
--- NOTE | 2019-07-29 19:28 | NUR ---
Opening Shift Note Assumed care of patient, awake and alert x 4. No S/S of distress/SOB, Bed is in lowest position and locked. Call light within reach. Board updated. Tele box number matches monitor and leads are in correct placement. D5/0.45 sodium chloride with 20 mEq of KCL infusing at 100 mls/hr. Instructed on POC and to call for assist PRN, will continue to monitor for changes Q1hr and PRN.
--- NOTE | 2019-07-29 21:55 | NUR ---
Paged MD Toth to notify him that patient is reporting sudden SOB in her right lower chest along with pain 7 /10 in her upper abdomen. O2 saturation is 95% on 4/l/min NC. Lung sounds: same extensive crackles sound through right lung. BP: 108/46 with HR of 112. RR: 22. Patient is anxious and imploring me to help her saying "I can't breathe. My stomach hurts." Patient has no pain medications ordered.
[2019-07-29 22:00] VITALS: BP 107/46
--- NOTE | 2019-07-29 22:24 | NUR ---
Attached patient's pleur-x catheter to collection canister using sterile technique. Patient and RN both wore masks during procedure. Order was to be done on Thursday but patient is having SOB with noticeable crackles in right lung and it is 96 minutes until Thursday. 550 mls of serous, then serosanguineous drainage came from Pleur-x Catheter. Closed off line and removed collection canister. Placed clean cap on cath end. Patient tolerated well and reports improved breathing.
--- NOTE | 2019-07-29 22:45 | NUR ---
Pagedylon Toth to notify a second time of 550 mls of drainage from Pleuer-x cath. Patient is still reporting pain in her abdomen, 08/02. Awaiting call back. Addendum: 07/30/19 at 0600 by RICKY EUCEDA RN Patient reports improved breathing and no SOB at this time.
--- NOTE | 2019-07-30 00:24 | NUR ---
Changed Optifoam to buttock, sacrum, posterior thighs, and inner thighs. Cleansed wounds with wound cleanser and covered wounds liberally with z-guard. Patient tolerated well.
[2019-07-30] MEDS: ACCU-CHEK COMFORT CURVE STRIP VI SCH ×6 (01:08→20:30)
[2019-07-30] MEDS: InsuLIN REG 1unit/0.01ml Soln (100units/ml) SC SCH ×6 (01:13→20:33)
[2019-07-30 05:00] VITALS: BP 124/60
--- NOTE | 2019-07-30 08:00 | NUR ---
OPENING SHIFT NOTE ASSUMED CARE OF PATIENT AWAKE AND ALERT. NO S/S OF DISTRESS NOTED OR COMPLAINTS OF PAIN. PATIENT UPDATED ON POC FOR THE DAY AND ALL QUESTIONS ANSWERED. BED IS IN LOWEST, LOCKED POSITION WITH SIDE RAILS UP X2 AND CALL LIGHT WITHIN REACH. WILL CONTINUE TO MONITOR Q1H AND PRN.
[2019-07-30 08:48] LABS: Albumin 1.3 g/dL (3.4-5.0); Calcium 7.2 mg/dL (8.5-10.1); Potassium 4.1 mmol/L (3.5-5.1)
[2019-07-30 08:53] LABS: BUN/Creatinine Ratio 48.8; Bilirubin, Total 0.9 mg/dL (0.2-1.0); Total Protein 4.8 g/dL (6.4-8.2)
[2019-07-30 09:29] VITALS: BP 125/54
[2019-07-30] MEDS: D5W/SOD CHL 0.45%/KCL 20MEQ 1,000 ML IV SCH (10:14)
[2019-07-30] MEDS: HYDROCORTISONE SOD SUCC 100 MG/2ML INJ VIAL IV SCH (10:14)
[2019-07-30] MEDS: MEROPENEM 1GM IVPB 100 ML IV SCH ×2 (10:14→22:42)
[2019-07-30] MEDS: MEGESTROL ACET 400MG/10ML ORAL SUSP PO SCH (10:14)
--- NOTE | 2019-07-30 10:30 | NUR ---
Respiratory note: HR 115, RR 16, SPO2 93% ON 4 L NC. PT STATES SHE IS BREATHING GOOD. PRN MED NEB TX NOT INDICATED AT THIS TIME. NO SIGNS OR SYMPTOMS OF RESPIRATORY DISTRESS NOTED. WILL CONTINUE TO MONITOR ORDERED.
--- NOTE | 2019-07-30 10:52 | NUR ---
AT BEDSIDE DR BRANDT AT BEDSIDE FOLLOWING UP WITH PATIENT.
[2019-07-30 12:31] VITALS: BP 147/59
--- NOTE | 2019-07-30 13:29 | NUR ---
WOUND CARE WOUND CARE PERFORMED BY THIS RN AND CECILIA FROM WOUND CARE. ALL OLD DRESSINGS REMOVED, WOUNDS CLEANSED AND THEN WERE PAT DRY. ZGAURD AND OPTIFOAM REAPPLIED TO SACRUM, RIGHT MEDIAL THIGH, LEFT POSTERIOR THIGH, AND RIGHT BREAST. PATIENT WAS UNABLE TO HELP WITH TURNING. WILL CONTINUE TO MONITOR.
--- NOTE | 2019-07-30 13:30 | NUR ---
WOUND CARE NOTE: Wound care in for reevaluation of wounds. Patient is resting in bed in Rm. 297A. Patient is awake, alert and able to verbalize needs. She's in no stated pain at this time. She needs assistance in turning and repositioning and her Ryder score is 12. Skin assessment done with the assistance of patient's nurse, MESHA Choudhury. Patient's Rt medial thigh, Rt and Lt posterior thighs continue to display skin erosion with ulceration from MASD. Some of wounds on previous wound care visit are now closed. Wounds are pale pink with pink gustavo wound. Pressure ulcer to sacral buttocks remain the same with red wound bed and some small open area showing from dark dry peeling skin. All wound stats can be found in nurse intervention wound assessment part. Skin tear to L breast remain partial thickness, clean and dry. Cleansed all wounds, photograph taken for reference and changed the dressing per MD order. Patient tolerated well. Repositioned for comfort, redistributed pressure points with pillows. MESHA Choudhury at bedside. RECOMMENDATION: Continuation of all wound care orders prescribed by MD, continue with skin wound plan of care, continue monitoring by wound care while patient is hospitalized. Addendum: 07/30/19 at 1851 by Natalee Avila RN Amended: Links added.
[2019-07-30] MEDS: D5W 5% 1,000 ML IV SCH (14:41)
--- NOTE | 2019-07-30 14:45 | NUR ---
AT BEDSIDE DR JACKSON AT BEDSIDE EVALUATING PATIENT.
[2019-07-30] MEDS: VANCOMYCIN 1GM/250ML 250 ML IV SCH (16:31)
[2019-07-30 16:58] VITALS: BP 162/76
[2019-07-30 17:33] VITALS: BP 130/68
--- NOTE | 2019-07-30 17:34 | NUR ---
BP REASSESSMENT PATIENT'S BP AT 1700 VITALS WAS 162/76. UPON REASSESSMENT BP IS 130/68.
--- NOTE | 2019-07-30 18:26 | NUR ---
PT ASSESSED FOR PRN MED NEB TX. SPO2 99% ON 4L NC, HR 115. PT DENIES ANY RESPIRATORY DISTRESS. NO TX INDICATED. PT IS AWARE TO HAVE RT PAGED IF TX NEEDED.
--- NOTE | 2019-07-30 19:28 | NUR ---
Opening Shift Note Assumed care of patient, awake and alert x 3, but very lethargic. No S/S of distress/SOB Bed is in lowest position and locked. Call light within reach.D5 infusing at ordered rate. Instructed on POC and to call for assist PRN, will continue to monitor for changes Q1 hr and PRN.
[2019-07-30 22:00] VITALS: BP 131/62
[2019-07-31] MEDS: ACCU-CHEK COMFORT CURVE STRIP VI SCH ×6 (00:32→21:57)
[2019-07-31] MEDS: InsuLIN REG 1unit/0.01ml Soln (100units/ml) SC SCH ×6 (00:34→21:57)
--- NOTE | 2019-07-31 01:45 | NUR ---
While turning patient, patient was found to have serous drainage coming from his Pleurx cath site. Dressing and Biopatch was completely soiled and had shifted off the site. Removed dressing and changed dressing using sterile technique. Sutures appeared to be intact. No bleeding noted from site. Serous fluid pooled out from around cath exit site. Small, new crackles noted around right lower lung. Attached patient to Pleurx catheter drainage canister. 400 mls of serous, transitioning to serosanguineous drainage taken out of Pleurx catheter before patient reported pain and drainage was stopped. Pain stopped immediately afterwards. Vitals taken: HR: 103, RR: 18, Temp: 98.0, Oxygen saturation: 96% on 4 l/min. Will notify MD Toth of change in patient status.
--- NOTE | 2019-07-31 01:47 | NUR ---
Paged MD Toth to notify him of change in status r/t Pleurx cath. Awaiting call back.
--- NOTE | 2019-07-31 02:57 | NUR ---
Pagedylon Toth to notify him of change in status r/t Plenikhilx cath. Awaiting call back. Addendum: 07/31/19 at 0258 by RICKY EUCEDA RN Wrong time. Disregard.
[2019-07-31] MEDS: D5W 5% 1,000 ML IV SCH ×2 (03:46→12:26)
[2019-07-31 05:00] VITALS: BP 131/67
--- NOTE | 2019-07-31 05:15 | NUR ---
MD Toth called back. Per , notify professional services manager of complication.
--- NOTE | 2019-07-31 07:12 | NUR ---
Endorsed notification of pulmonology to day shift RN.
[2019-07-31 07:38] LABS: Hematocrit 31.5 % (36.0-46.0); Mean Corpuscular Hemoglobin 29.6 pg (28.0-32.0); Mean Corpuscular Hgb Conc. 31.8 g/dL (32.0-36.0); Mean Corpuscular Volume 93.1 fL (80.0-100.0); Platelet Count (auto) 27 10^3/uL (140-450); Red Blood Cells 3.38 10^6/uL (4.0-5.20); Red Cell Distribution Width 20.3 % (11.8-14.3); White Blood Cell 8.3 10^3/uL (4.4-10.8)
[2019-07-31 07:40] LABS: Basophils % (manual) 0 (0.0-2.0); Blast Cells 0; Promyelocytes % 0; Reactive Lymphocytes 0
[2019-07-31 07:52] LABS: Albumin 1.3 g/dL (3.4-5.0); Potassium 4.2 mmol/L (3.5-5.1)
[2019-07-31 07:55] LABS: BUN/Creatinine Ratio 50.5; Bilirubin, Total 0.9 mg/dL (0.2-1.0); Total Protein 4.6 g/dL (6.4-8.2)
--- NOTE | 2019-07-31 08:00 | NUR ---
OPENING SHIFT NOTE ASSUMED CARE OF PATIENT. NO S/S OF DISTRESS NOTED OR COMPLAINTS OF PAIN. PLEURX CATHETER AND DRESSING ARE INTACT WITH NO VISIBLE DRAINAGE. PATIENT UPDATED ON POC FOR THE DAY. BED IS IN LOWEST, LOCKED POSITION WITH SIDE RAILS UP X2, CALL LIGHT WITHIN REACH, AND BED ALARM ON FOR SAFETY. WILL CONTINUE TO MONITOR Q1H AND PRN.
--- NOTE | 2019-07-31 08:10 | NUR ---
PAGED PAGED DR SULLIVAN REGARDING PATIENT'S STATUS INCLUDING WORSENING OF UPPER AND LOWER EXTREMITY SWELLING, PERSISTENT TACHYCARDIA, SODIUM LEVEL OF 150, AND CRACKLES HEARD IN LUNGS. AWAITING CALL BACK, WILL CONTINUE TO MONITOR.
[2019-07-31 09:06] VITALS: BP 135/55
[2019-07-31 09:16] LABS: Band Neutrophils % (manual) 7; Eosinophils % (manual) 5 (0-7); Lymphocytes % (manual) 8 (10.0-50.0); Metamyelocytes % 2; Monocytes % (manual) 8 (0-12); Myelocytes % 2
[2019-07-31] MEDS: MEROPENEM 1GM IVPB 100 ML IV SCH ×2 (09:53→21:58)
[2019-07-31] MEDS: MEGESTROL ACET 400MG/10ML ORAL SUSP PO SCH (09:54)
[2019-07-31 12:45] VITALS: BP 128/50
--- NOTE | 2019-07-31 13:10 | NUR ---
PT ASSESSED FOR PRN MED NEB TX, PT DENIES FEELING SOB BUT WHEN ASSESSED PT HAD EXPIRATORY WHEEZES. PT SAYS SHE DOES NOT WANT A BREATHING TX AT THIS TIME. PT ON 2L NC WITH SPO2 95%, HR 77, RR 20. NO DISTRESS NOTED. WILL CONTINUE TO MONITOR PT.
--- NOTE | 2019-07-31 14:32 | NUR ---
PATIENT REFUSED PT. MESHA JASON WAS NOTIFIED. Addendum: 07/31/19 at 1432 by MARY CARY PTT Amended: Links added.
[2019-07-31] MEDS: VANCOMYCIN 1GM/250ML 250 ML IV SCH (16:19)
[2019-07-31 17:29] VITALS: BP 138/54
[2019-07-31] MEDS: BUMETANIDE 2.5mg/10ml (0.25 mg/ml) INJ IV SCH (17:53)
[2019-07-31] MEDS: FUROSEMIDE 40 MG TAB PO SCH (17:54)
--- NOTE | 2019-07-31 19:25 | NUR ---
Respiratory note: ASSESSED PT FOR PRN TX PT WAS RESTING , NO RESP DISTRESS NOTED. HR 120, RR 18, SPO2 96% ON 4L N/C. INSP WHEEZES HEARD T/O. PT STATED SHE DID NOT WANT OR NEED A TX AT THIS TIME , EVEN AFTER I TOLD HER SHE CAN BENEFIT OFF A TX AT THIS TIME. PT KNOWS TO HAVE RT PAGED IF TX IS NEEDED.
[2019-07-31 20:39] VITALS: BP 138/54
[2019-07-31 22:00] VITALS: BP 131/66
--- NOTE | 2019-07-31 23:10 | NUR ---
Received Report/SBAR from MESHA Newell. Assumed care of patient, awake and alert. No S/S of distress/SOB or pain. Insructed on POC and to callfor assist PRN, will continue to monitor for changes Q1hr and PRN.
[2019-08-01] MEDS: InsuLIN REG 1unit/0.01ml Soln (100units/ml) SC SCH ×7 (00:10→23:58)
[2019-08-01] MEDS: ACCU-CHEK COMFORT CURVE STRIP VI SCH ×7 (00:10→23:57)
[2019-08-01] MEDS: D5W 5% 1,000 ML IV SCH ×2 (00:45→13:15)
[2019-08-01 05:00] VITALS: BP 140/61
--- NOTE | 2019-08-01 05:30 | NUR ---
BM Patient had a small/smear BM, cleaned and changed.
[2019-08-01] MEDS: FUROSEMIDE 40 MG TAB PO SCH ×2 (05:51→17:49)
[2019-08-01] MEDS: BUMETANIDE 2.5mg/10ml (0.25 mg/ml) INJ IV SCH (05:51)
--- NOTE | 2019-08-01 07:04 | NUR ---
Closing note Pt resting in right lateral position w. eyes closed. no s/s of pain or discomfort at this time. bed in low locked position, call light within reach.
--- NOTE | 2019-08-01 08:00 | NUR ---
OPENING SHIFT NOTE ASSUMED CARE OF PATIENT. PATIENT APPEARS SOB AT REST WITH DIFFICULTY CLEARING SECRETIONS D/T WEAK COUGH. PATIENT HAS AUDIBLE WHEEZES AND COARSE CRACKLES HEARD ON AUSCULTATION. PATIENT IS ON 4L NC WITH AN OXYGEN SATURATION OF 96%. PATIENT UPDATED ON POC FOR THE DAY. BED IS IN LOWEST, LOCKED POSITION WITH SIDE RAILS UP X2 AND CALL LIGHT WITHIN REACH. WILL CONTINUE TO MONITOR Q1H AND PRN.
[2019-08-01 09:00] VITALS: BP 168/73
[2019-08-01 09:34] LABS: Albumin 1.3 g/dL (3.4-5.0); Calcium 7.2 mg/dL (8.5-10.1); Potassium 4.2 mmol/L (3.5-5.1)
[2019-08-01 09:37] LABS: BUN/Creatinine Ratio 45.8; Total Protein 5.2 g/dL (6.4-8.2)
[2019-08-01] MEDS: MEROPENEM 1GM IVPB 100 ML IV SCH (09:41)
[2019-08-01] MEDS: MEGESTROL ACET 400MG/10ML ORAL SUSP PO SCH (09:44)
--- NOTE | 2019-08-01 10:34 | NUR ---
PATIENT REFUSED PT. MESHA JASON WAS NOTIFIED. Addendum: 08/01/19 at 1034 by MARY CARY PTT Amended: Links added.
--- NOTE | 2019-08-01 11:51 | NUR ---
PAGED PAGE OUT TO DR SULLIVAN REGARDING PATIENT'S BP AND RESPIRATORY STATUS. AWAITING CALL BACK
--- NOTE | 2019-08-01 12:54 | NUR ---
PAGED AGAIN REPAGED DR SULLIVAN REQUESTING HE COME IN AND SEE PATIENT. AWAITING CALL BACK.
[2019-08-01 13:00] VITALS: BP 89/33
--- NOTE | 2019-08-01 13:43 | NUR ---
AT BEDSIDE DR BRANDT AT BEDSIDE EVALUATING PATIENT. NEW ORDERS RECEIVED. WILL CARRY OUT AND CONTINUE CARE
--- NOTE | 2019-08-01 14:00 | NUR ---
ELECTROENCEPHALOGRAM EEG COMPLETED AT BEDSIDE. PRIMARY RN EREN GOMES.
--- NOTE | 2019-08-01 14:49 | NUR ---
Nutrition Followup Notes WT: 88.0 kg kg Pt awake and oriented when rounded this am. per pt no N.V with fair appitite. pt currently on mech soft diet with inadequte PO of < 50% x 6 per RN doc Est Energy needs: 4076-1775 kcals (20-23 kcal/kgBW), Est Protein needs: 47-59 gms/day (0.6-0.75 gm/kgBW). Will continue to monitor and reassess prn. LABS: BUN 55 H, CREAT 1.09 H ALB 1.3 L, CA 7.0 L. GI: Pt had 1 BM today per RN doc. BS: 11 high risk. Please refer to wound assessment report for full details. PES: Altered nutrition related lab values r.t current chronic medical condition aeb elev RFTs, Stg 4 CKD, hyperglycemia,hypocalcemia, low LFTs, dyslipidemia, severe hypoalbuminemia Partially resolved, pt diet advanced to mech soft, po intake has not been recorded yet: Increased nutrient needs r/t pt with no PO intake aeb pt sedated, intubated, NPO Rec: 1) consider ensure Enlive 1 carton bid if PO continues to be low, 2) continue assistance with meals. 3) consider prostat 1 pacekt bid as RFT improve 4) Continue current plan of care. F/u mod 3-5days
--- NOTE | 2019-08-01 15:30 | NUR ---
PLEURX ORDER OBTAINED FROM DR BRANDT TO DRAIN PLEURX CATHETER. DRAINAGE KIT OBTAINED AND CATHETER ACCESSED VIA STERILE TECHNIQUE. 500ML SEROSANGUINEOUS DRAINAGE PUT OUT. PATIENT TOLERATED PROCEDURE WELL. WILL CONTINUE TO MONITOR.
--- NOTE | 2019-08-01 15:37 | NUR ---
AT BEDSIDE DR WOLF AT BEDSIDE FOLLOWING UP WITH PATIENT.
[2019-08-01] MEDS ORDERED: cefTRIAXone 1GM/50ML D5W 50 ML IV ONE (16:00)
[2019-08-01] MEDS: VANCOMYCIN 1GM/250ML 250 ML IV SCH (16:15)
[2019-08-01] MEDS ORDERED: hydrALAZINE HCL 20 MG/ML VL IV PRN (16:30)
--- NOTE | 2019-08-01 16:31 | NUR ---
AT BEDSIDE DR SULLIVAN AT BEDSIDE EVALUATING PATIENT. STATES HE WILL SPEAK TO THE GRANDDAUGHTER TOMORROW REGARDING PATIENT'S PROGNOSIS.
[2019-08-01 17:00] VITALS: BP 128/56
--- NOTE | 2019-08-01 19:25 | NUR ---
Opening Shift Note Assumed care of patient, awake and alert. No S/S of distress/SOB or pain. Insructed on POC and to callfor assist PRN, will continue to monitor for changes Q1hr and PRN.
--- NOTE | 2019-08-01 19:30 | NUR ---
Respiratory note: Assessed pt for prn medneb tx. HR 120, RR 22, SPO2 96% on 4lpm nasal cannula. Breath sounds clear/dim, pt denies SOB, no s/s of respiratory distress noted. Medneb tx not indicated at this time. Pt aware to call for RT if needed.
[2019-08-01 22:00] VITALS: BP 140/67
[2019-08-02] MEDS: D5W 5% 1,000 ML IV SCH ×2 (01:45→14:15)
[2019-08-02] MEDS: InsuLIN REG 1unit/0.01ml Soln (100units/ml) SC SCH ×5 (04:00→20:34)
[2019-08-02] MEDS: ACCU-CHEK COMFORT CURVE STRIP VI SCH ×6 (04:11→23:39)
[2019-08-02 05:00] VITALS: BP 132/67
[2019-08-02] MEDS: FUROSEMIDE 40 MG TAB PO SCH (05:31)
--- NOTE | 2019-08-02 06:00 | NUR ---
Wound Dressing Change Wound clean and dressing change. Patient tolerated well.
--- NOTE | 2019-08-02 07:00 | NUR ---
Opening Shift Note Received report on the patient. Awake lying in bed. Patient shows no signs of distress at this time. Discussed plan of care with the patient. Bed in lowest position, side rails up x2, and the call light is within reach.
--- NOTE | 2019-08-02 08:34 | NUR ---
Paged RT per Dr Aj's request. Patient sounded "wheezy"
[2019-08-02 09:00] VITALS: BP 123/87
--- NOTE | 2019-08-02 09:00 | NUR ---
Respiratory note: PAGED TO PATIENTS ROOM FOR PRN MED-NEB TX. ON ARRIVAL AND ASSESSMENT OF PATIENT SHE WAS IN NO ACUTE RESPIRATORY DISTRESS AND SHE DENIED ANY SOB OR DIFF BREATHING. PATIENT STATED SHE DID NOT NEED A BREATHING TX AT THIS TIME. SHE WAS INSTRUCTED TO CALL FOR RT IF SHE FELT THE NEED FOR TX AT A LATER TIME.
[2019-08-02 09:47] LABS: Hematocrit 31.9 % (36.0-46.0); Mean Corpuscular Hemoglobin 29.9 pg (28.0-32.0); Mean Corpuscular Hgb Conc. 31.5 g/dL (32.0-36.0); Platelet Count (auto) 26 10^3/uL (140-450); Red Blood Cells 3.35 10^6/uL (4.0-5.20); White Blood Cell 8.9 10^3/uL (4.4-10.8)
[2019-08-02 09:50] LABS: Red Cell Distribution Width 20.2 % (11.8-14.3)
[2019-08-02 09:52] LABS: Basophils % (manual) 0 (0.0-2.0); Blast Cells 0; Promyelocytes % 0; Reactive Lymphocytes 0
[2019-08-02 10:05] LABS: Calcium 7.4 mg/dL (8.5-10.1); Potassium 4.4 mmol/L (3.5-5.1)
[2019-08-02 10:08] LABS: BUN/Creatinine Ratio 46.9; Bilirubin, Total 0.7 mg/dL (0.2-1.0); Total Protein 5.1 g/dL (6.4-8.2)
[2019-08-02] MEDS: cefTRIAXone 1GM/50ML D5W 50 ML IV SCH (10:16)
[2019-08-02] MEDS: MEGESTROL ACET 400MG/10ML ORAL SUSP PO SCH (10:16)
[2019-08-02 10:26] LABS: Band Neutrophils % (manual) 2; Eosinophils % (manual) 5 (0-7); Lymphocytes % (manual) 19 (10.0-50.0); Metamyelocytes % 1; Monocytes % (manual) 6 (0-12); Myelocytes % 1
[2019-08-02] MEDS: ALBUTEROL SULF 2.5 MG/0.5ML(0.5%) NEB SOLN NEB PRN ×2 (11:35→19:16)
--- NOTE | 2019-08-02 11:43 | NUR ---
Respiratory note: PRN MED-NEB ADMINISTERED PER DR. BENITES'S REQUEST FOR SOME WHEEZING.
[2019-08-02 13:00] VITALS: BP_SYST 141; BP_SYST 155; BP_DIAS 63; BP_DIAS 69
--- NOTE | 2019-08-02 14:54 | NUR ---
Paged Dr Toth regarding an increased Na. Awaiting a call back.
--- NOTE | 2019-08-02 16:22 | NUR ---
Spoke to the patient family. Wanting to speak to Dr Toth before discharge because they did not know the patient was on 5L NC with an O2 sat of 92%. Patient is very edematous, unable to stand, or tolerate activity. Dr. Toth paged to call grand daughter.
--- NOTE | 2019-08-02 19:20 | NUR ---
Opening Shift Note Assumed care of patient, awake and alert. No S/S of distress/SOB or pain. Instructed on POC and to call for assist PRN, will continue to monitor for changes Q1hr and PRN.
--- NOTE | 2019-08-02 19:45 | NUR ---
Dr. López Received one time orders to drain Pleurx Catheter. ABG's and CXR to be done after pleurx catheter is drained. Repeated orders to verified.
--- NOTE | 2019-08-02 21:00 | NUR ---
Pleurx Catheter Drainage Drainage kit obtained and catheter accessed via sterile technique. 450 ml serosanguineous drainage out out. Patient tolerated procedure well. Will continue to monitor.
--- NOTE | 2019-08-02 21:10 | NUR ---
Respiratory note: ABG WAS DRAWN AND RESULTS REPORTED. DR. BRANDT ORDERED SECOND ABG AFTER PLEURX WAS DRAINED. PLACED PT ON SIMPLE MASK 10LPM. ABG DRAWN POST PLEURX DRAINING AND RESULTS REPORTED TO DR. BRANDT. SP02 ON SIMPLE MASK 10LPM 95%. BS COARSE CRACKLES T/O.
[2019-08-02 22:00] VITALS: BP 117/49
--- NOTE | 2019-08-02 23:00 | NUR ---
Transfer Orders Dr. López gave this entry level mechanical engineer order via telephone for patient due to hypoxia, needs high flow and/or bipap.
--- NOTE | 2019-08-02 23:01 | NUR ---
Morning Orders Dr. López gave this RN orders via telephone for continuous pulse oximeter, ABG and CXR in the morning, repeated to verified.
--- NOTE | 2019-08-02 23:31 | NUR ---
Report Given to [facility] Nurse Report/SBAR given to [facility] nurse Enmanuel, patient will be going to room 263.
[2019-08-03] VITALS (11 sets, daily range): BP systolic 107–131; BP diastolic 44–72
--- NOTE | 2019-08-03 | NUR ---
Patient transferred to [facility] Patient transferred to [facility] room 262, patient tolerated well, no sig of distress or pain.
[2019-08-03] MEDS: InsuLIN REG 1unit/0.01ml Soln (100units/ml) SC SCH ×7 (00:33→23:40)
--- NOTE | 2019-08-03 01:00 | NUR ---
PT APPEARS TO BE SLEEPING CONNECTED TO BIPAP. NO DISTRESS NOTED. WILL CONTINUE TO MONITOR.
[2019-08-03] MEDS: D5W 5% 1,000 ML IV SCH (03:21)
[2019-08-03] MEDS: ACCU-CHEK COMFORT CURVE STRIP VI SCH ×6 (03:35→23:30)
[2019-08-03 04:30] LABS: Hemoglobin 10.7 g/dL (12.2-16.2)
[2019-08-03 04:31] LABS: Hematocrit 33.7 % (36.0-46.0); Mean Corpuscular Hemoglobin 29.7 pg (28.0-32.0); Mean Corpuscular Hgb Conc. 31.8 g/dL (32.0-36.0); Mean Corpuscular Volume 93.2 fL (80.0-100.0); Platelet Count (auto) 25 10^3/uL (140-450); Red Blood Cells 3.62 10^6/uL (4.0-5.20); Red Cell Distribution Width 19.4 % (11.8-14.3); White Blood Cell 7.4 10^3/uL (4.4-10.8)
[2019-08-03 04:38] LABS: Calcium 7.5 mg/dL (8.5-10.1); Potassium 4.1 mmol/L (3.5-5.1)
[2019-08-03 04:42] LABS: BUN/Creatinine Ratio 44.8
[2019-08-03 04:43] LABS: Basophils % (manual) 0 (0.0-2.0); Blast Cells 0; Promyelocytes % 0; Reactive Lymphocytes 0
[2019-08-03 06:01] LABS: Eosinophils % (manual) 3 (0-7); Lymphocytes % (manual) 21 (10.0-50.0); Monocytes % (manual) 7 (0-12)
[2019-08-03 06:02] LABS: Band Neutrophils % (manual) 9; Metamyelocytes % 1; Myelocytes % 1
[2019-08-03] MEDS: D5W/SOD CHL 0.45% 1,000 ML IV SCH ×2 (08:59→23:30)
[2019-08-03] MEDS: cefTRIAXone 1GM/50ML D5W 50 ML IV SCH (09:00)
--- NOTE | 2019-08-03 09:30 | NUR ---
Pt upgraded to [facility]. Pt now on hold pending new order. Addendum: 08/03/19 at 0951 by Robert Ozuna PTA Amended: Links added.
[2019-08-03] MEDS: MEGESTROL ACET 400MG/10ML ORAL SUSP PO SCH (10:00)
[2019-08-03] MEDS ORDERED: FUROSEMIDE 40 MG TAB PO SCH (10:00)
[2019-08-03] MEDS ORDERED: FUROSEMIDE 40 MG/4 ML VIAL IV ONE (10:30)
[2019-08-03] MEDS: ALBUTEROL SULF 2.5 MG/0.5ML(0.5%) NEB SOLN NEB PRN (10:35)
--- NOTE | 2019-08-03 10:50 | NUR ---
Respiratory note: PT WAS TAKEN OFF OF BIPAP, AND PLACED ON 7L OXYMIZER. SPO2 100%, HR 113, RR 18, BP 120/52, BS COARSE/I&E WHEEZES BILATERALLY. PT TOLERATING CHANGE WELL. RN MADE AWARE. WILL CONTINUE TO MONITOR PT.
--- NOTE | 2019-08-03 14:13 | NUR ---
Resumed care at 0725, orders reviewed and ongoing assessments being done. Being treated for multiple problems and upon arrival of shift on BIPAP and sleepy but able to arouse. She can make needs known and speaks in a soft low voice. BIPAP was removed at 1052 and placed on a oxidizer and currently running at 7 liters/min. She is very weak and fatigues easily and becomes SOB upon repositioning or flattening bed. Breakfast and lunch was held due to compromised respiratory status. She does not have a appetite and able to tolerate sips of water. Dr. Noyola, manager city rounded at 0800. Discussed condition and new orders. Spoke with family member Lupe Mora at 1023 via phone. Updated her on condition and questions answered. Dr. Toth was in at 1320, connected him with family member Lupe Mora via phone. They discussed condition and plan of care. Spoke with Dr. López earlier in the shift. Per Dr. López ordered to drain the Pleurex catheter today. Drained 320 ml of bright red cloudy liquid. While draining she cried out. She stated that it felt like knifes were stabbing her. Stopped draining immediately and slowed down the process.
--- NOTE | 2019-08-03 18:40 | NUR ---
Respiratory note: PT ASSESSED FOR PRN MED NEB TX. HR 103, RR 18, SPO2 97% ON 7L OXYMIZER. NO S/S OF ANY RESPIRATORY DISTRESS NOTED. ADVISED PT TO CALL IF TX IS NEEDED. RT NAME AND PAGER NUMBER WRITTEN ON PT'S BOARD.
--- NOTE | 2019-08-03 19:01 | NUR ---
Remains off BIPAP since 1029. Remains weak and total care required. Unable to participate with self care. Continues to answer appropriately. Poor oral intake, no appetite. Offering liquids as tolerated.
--- NOTE | 2019-08-03 20:00 | NUR ---
Opening Shift Note Assumed care of patient, awake, looks tired. watching TV. Oriented x 4, weak on all limbs. No S/S of distress/SOB or pain. On Oxymizer at 7L/min RR 19-25/min, no complains of shortness of breath, SPO2 92-93%. Sinus tachycardia, BP stable. Right upper arm midline running IV D5 1/2 NS at 75ml/hr, right subclavian Port-a-cath in placed - saline locked. All limbs swollen - elevated with pillow. Peripheries cold to touch - covered with blanket. Full assessment done- refer interventions. Pressure ulcers noted at the sacral area - will change dressing later. Instructed on POC and to call for assist PRN, will continue to monitor for changes Q1hr and PRN.
--- NOTE | 2019-08-03 21:50 | NUR ---
MIDLINE DRESSING MIDLINE DRESSING CHANGED. CLEANED ASEPTICALLY. BIOPATCH CHANGED. PATIENT TOLERATED WELL.
--- NOTE | 2019-08-03 22:00 | NUR ---
DESATURATION Patient's saturation dropped to 88-89% Patient said she is not short of breath. Encouraged deep breathing exercises Increased O2 to 8L/min Addendum: 08/03/19 at 2230 by Isabel Tapia RN SATURATION PICKED UP TO 92-93% WILL CONTINUE TO MONITOR
--- NOTE | 2019-08-03 23:56 | NUR ---
PATIENT APPEARS TO BE RESTING, EYES CLOSED. SATURATIONS STILL FLUCTUATES TO 88-90% WILL MONITOR
[2019-08-04] VITALS (7 sets, daily range): BP systolic 107–127; BP diastolic 51–61
[2019-08-04] MEDS: ACCU-CHEK COMFORT CURVE STRIP VI SCH ×6 (03:48→23:37)
[2019-08-04] MEDS: InsuLIN REG 1unit/0.01ml Soln (100units/ml) SC SCH ×6 (03:48→23:37)
[2019-08-04 04:11] LABS: Basophils # (auto) 0 10 ^3/uL (0-0.2); Basophils % (auto) 0.4 % (0.0-2.0); Hemoglobin 9.6 g/dL (12.2-16.2); Monocytes # (auto) 0.4 10 ^3/uL (0-1.3)
[2019-08-04 04:13] LABS: Eosinophils # (auto) 0.4 10 ^3/uL (0-0.8); Hematocrit 30.4 % (36.0-46.0); Lymphocytes # (auto) 1.1 10 ^3/uL (0.4-5.4); Lymphocytes % (auto) 20.4 % (10.0-50.0); Mean Corpuscular Hemoglobin 29.8 pg (28.0-32.0); Mean Corpuscular Hgb Conc. 31.4 g/dL (32.0-36.0); Mean Corpuscular Volume 94.7 fL (80.0-100.0); Monocytes % (auto) 8.1 % (0.0-12.0); Neutrophils # (auto) 3.4 10 ^3/uL (1.6-8.6); Neutrophils % (auto) 63.1 % (37.0-80.0); Nucleated Red Blood Cells % 0.5 %; Red Blood Cells 3.22 10^6/uL (4.0-5.20); Red Cell Distribution Width 19.9 % (11.8-14.3); White Blood Cell 5.4 10^3/uL (4.4-10.8)
[2019-08-04 04:21] LABS: Platelet Count (auto) 14 10^3/uL (140-450)
[2019-08-04 04:24] LABS: BUN/Creatinine Ratio 46.3; Calcium 7.4 mg/dL (8.5-10.1)
--- NOTE | 2019-08-04 05:18 | NUR ---
DESATURATION AND SOB PATIENT HAD AN EPISODE OF DESATURATION AND SHORTNESS OF BREATH WHILE TURNING TO HER SIDE DURING WOUND CARE. SATURATION DROPPED TO 80%, HR 110/MIN, RR 30-35/MIN. PROPPED UP PATIENT IMMEDIATELY, OXYGEN INCREASED TO 15L/MIN. RT PAGED AND ASKED IF CAN PUT ON NRB BECAUSE SATURATION IS STILL 88-89% WITH THE OXYMIZER- SHE SAID OK. NRB PLACED 15L/MIN. LUNG SOUNDS COARSE AND WITH CRACKLES ALL THROUGH OUT. PLEUR-X CATHETER DRAINED (ORDER TO DRAIN DAILY) = 350MLS SEROSANGUINEOUS OUTPUT. PATIENT FELT BETTER AFTERWARDS. SATURATIONS UP TO 95%, RR 25/MIN, HR 104/MIN WILL CONTINUE TO MONITOR
--- NOTE | 2019-08-04 06:00 | NUR ---
RE-ASSESS PATIENT'S SATS 88-94% RR 19-24/MIN PATIENT IS RESTING RIGHT NOW, OPEN EYES TO CALL AND ANSWERS WHEN ASKED. OXYMIZER AT 10L/MIN WILL CONTINUE TO MONITOR
--- NOTE | 2019-08-04 06:28 | NUR ---
PAGED DR. SULLIVAN AWAITING CALL BACK
--- NOTE | 2019-08-04 06:32 | NUR ---
RT NOTE: PRN BREATHING TX. NOT INDICATED AT THIS TIME. PT. SLEEPING. BREATH SOUNDS REVEAL COARSE CRACKLES IN THE UPPER LUNG BUSCH. PT. HR. 102, RR 22, POX 10L OXYMIZER.
--- NOTE | 2019-08-04 07:15 | NUR ---
REPORT REPORT GIVEN TO MESHA BALTAZAR
--- NOTE | 2019-08-04 07:45 | NUR ---
OPENING SHIFT NOTE: Received report from NOC RNIsabel. Assumed care of patient. Received patient resting in bed, connected to bedside monitor with alarms in place, bed in lowest position, rails x3 up and call light within reach. Patient is A&Ox4, denies pain. Patient with severe weakness in both upper and lower extremities. Patient with +2 edema to BUE and BLE. Patient on 10L Oxymizer with O2 sats >90%. Lung sounds are coarse bilaterally in the upper blount right worse than the left and diminished lung sounds in bilateral bases. Patient with IVF of D5.45NS infusing at 75ml/hr to right upper arm midline. Moody draining yellow urine. Per NOC RN, patient with several pressure wounds to bilateral posterior thighs and sacrum. Unable to assess due to respiratory status. Will follow up with Wound care team regarding specialty mattress. Updated on plan of care. Will continue to monitor q1hr/PRN.
--- NOTE | 2019-08-04 08:30 | NUR ---
MD Dr Noyola at bedside. Orders received.
[2019-08-04] MEDS ORDERED: FUROSEMIDE 100 MG/10ML VIAL IV ONE (08:45)
[2019-08-04] MEDS: cefTRIAXone 1GM/50ML D5W 50 ML IV SCH (09:29)
--- NOTE | 2019-08-04 10:30 | NUR ---
FAMILY T/C from patient's daughter, Lupe. Password verified. Updated on patient status and current plan of care. All questions answered.
[2019-08-04] MEDS: MEGESTROL ACET 400MG/10ML ORAL SUSP PO SCH (10:45)
[2019-08-04] MEDS: D5W/SOD CHL 0.45% 1,000 ML IV SCH ×2 (11:10→12:53)
--- NOTE | 2019-08-04 11:19 | NUR ---
Nutrition Followup Notes WT: 88.0 kg kg Pt awake and oriented when rounded this am. per pt no N.V with okay appetite. pt currently on mec soft diet with inadequate PO of < 50% x 6 per RN doc Est Energy needs: 7555-1631 kcals (20-23 kcal/kgBW), Est Protein needs: 47-59 gms/day (0.6-0.75 gm/kgBW). Will continue to monitor and reassess prn. LABS: BUN 62H, Creat 1.34H, Ca 7.4L, Alb 1.0L GI: Pt had 1 BM 07/31 per RN doc. BS: 14 mod risk. Please refer to wound assessment report for full details. PES: Altered nutrition related lab values r.t current chronic medical condition aeb elev RFTs, Stg 4 CKD, hyperglycemia,hypocalcemia, low LFTs, dyslipidemia, severe hypoalbuminemia Partially resolved, pt diet advanced to mech soft, po intake inadequate: Increased nutrient needs r/t pt with no PO intake aeb pt sedated, intubated, NPO Rec: 1) consider ensure Enlive 1 carton bid if PO continues to be low, 2) continue assistance with meals. 3) consider prostat 1 pacekt bid as RFT improve 4) Continue current plan of care. F/u mod 3-5days
--- NOTE | 2019-08-04 14:00 | NUR ---
[facility] bed, Oxygen stats dropped to 85% while flat. Sat patient up and placed on 15L Oxymizer and O2 sats increased to 96%. After patient stable and felt better placed patient back on 10L Oxymizer with O2 sats at 92%.
[2019-08-04 14:42] LABS: BUN/Creatinine Ratio 43.5; Calcium 7.3 mg/dL (8.5-10.1); Potassium 3.7 mmol/L (3.5-5.1)
--- NOTE | 2019-08-04 15:09 | NUR ---
Drained Plurex per discussion with Dr López due to increased coarse lung sounds and increased Oxygen requirement. Drained 150ml of [place] fluid. Patient tolerated well, stopped due to patient discomfort.
--- NOTE | 2019-08-04 16:29 | NUR ---
Nutrition Followup Notes WT: 95.4 kg Pt awake and oriented when rounded this am. Per pt no N.V with okay appetite. Pt currently on mech soft diet with inadequate PO of < 25% x 6 per RN doc. Pt stated her grand daughter is bringing in food for her, I verified with RN, and she said she will monitor it closely for the pt. Will continue to closely monitor pertinent labs, PO intake and skin status prn. Will followup in 3-5 days Est Energy needs: 3764-9692 kcals (20-23 kcal/kgBW), Est Protein needs: 47-59 gms/day (0.6-0.75 gm/kgBW). Will continue to monitor and reassess prn. LABS: BUN 62 H, Creat 1.34 H, GFR 41 L, Gluc 125 H, Ca 7.4 L, Alb 1.0 L GI: Pt had 1 BM 08/01 per RN doc. BS: 14 mod risk. Please refer to wound assessment report for full details. PES: Altered nutrition related lab values r.t current chronic medical condition aeb elev RFTs, Stg 4 CKD, hyperglycemia,hypocalcemia, low LFTs, dyslipidemia, severe hypoalbuminemia Partially resolved, pt diet advanced to mech soft, po intake inadequate: Increased nutrient needs r/t pt with no PO intake aeb pt sedated, intubated, NPO Rec: 1) consider ensure Enlive 1 carton bid if PO continues to be low, 2) continue assistance with meals. 3) consider prostat 1 pacekt bid as RFT improve 4) Continue current plan of care. F/u mod 3-5days
--- NOTE | 2019-08-04 17:00 | NUR ---
MD Dr Anand, cardiology to see patient.
--- NOTE | 2019-08-04 18:10 | NUR ---
RT NOTE PT WAS SEEN BY RT FOR PRN HHN TX. PT IS AWAKE AND ALERT. NO SOB OR DISTRESS NOTED. PT STATES NO TX NEEDED AT THIS TIME. HR 112, RR 30, BS COARSE THROUGHOUT, POX 93% ON 10 L OXYMIZER. PT AWARE TO CALL IF TX NEEDED. WILL CONT TO MONITOR PT Addendum: 08/04/19 at 1901 by Minerva Christiansen RT Amended: Links added.
--- NOTE | 2019-08-04 18:52 | NUR ---
END OF SHIFT NOTE: Patient resting on specialty bed, no s/s of distress. Patient back down to 10L Oxymizer with O2 sats 93%. Lung sounds remain coarse throughout. Moody draining dark yellow urine with sediment noted. Patient's appetite remains poor, only eating ~10% of dinner. Family, Lupe, has called throughout the day and has been updated on patient status. Wound care unable to be completed today due to patient inability to tolerate laying flat long enough for wound care. Report to be given to oncoming EUGENIA RN.
--- NOTE | 2019-08-04 19:10 | NUR ---
OPENING NOTE RECEIVED REPORT FROM SHAVONNE RN. PATIENT AOX4, WITH GEN WEAKNESS, ON 10L NC STATING >95% ON BEDSIDE MONITOR. BREATHING 25-31 WITH NO COMPLAINTS OF SOB. RIGHT PLEURLX CATH INTACT. ST ON HAZARDOUS MATERIALS ANALYST 117 WITH CHACHO 117/51. MENDOZA PATENT TO GRAVITY. MULTIPLE WOUNDS, FOR MORE INFORMATION SEE INTERVENTIONS. ON SPECIALITY MATTRESS, ALL FALL AND SAFETY PRECAUTIONS IN PLACE. PLACED IN POSITION OF COMFORT.
--- NOTE | 2019-08-04 22:10 | NUR ---
URINE OUTPUT URINE OUT PUT OF 10ML FOR LAST HOUR, WRITTEN COMMUNICATION ORDER FROM [facility] FOR LASIX 40MG IVP IS NOC SHIFT UOP IS <35ML/HR. PLACED WRITTEN ORDER FOR LASIX
[2019-08-04] MEDS ORDERED: FUROSEMIDE 40 MG/4 ML VIAL IV ONE (22:30)
--- NOTE | 2019-08-04 22:50 | NUR ---
PLACED PATIENT ON BIPAP PER BRANDT ORDER, PLACED PATIENT ON BIPAP, ONCE PLACED PATIENT STATING "I CANT BREATH" AND DESATUREATED DOWN TO 80% SPO2 ON BED SIDE MONITOR. RESPIRATIONS WENT TO 50'S WITH ACCESSORY MUSCLE BREATHING. PLACED BACK ON OXYMIZER 10L AND SATURATIONS RETURNED TO >95% SPO2
--- NOTE | 2019-08-04 23:00 | NUR ---
RT NOTE RT AT BEDSIDE TO PLACE PT ON BIPAP PER NEW ORDER. PT HAD PREVIOUS ORDER BUT DID NOT WANT TO WEAR IT. PLACED PT ON BIPAP B1 ON ORDERED SETTINGS 14/6, BUR 12 WITH MEDIUM MASK. PT DID NOT TOLERATE AT ALL. PT STATES TS TOO MUCH AND SHE CANNOT BREATHE OVER AND OVER. HR 120s, RR SHOT UP TO 50s PT DESATURATED TO 79%. PT REQUESTS TO TAKE IT OFF. MESHA MURRAY AT BEDSIDE. PT REMOVED FROM BIPAP AND PLACED BACK ON 10L OXYMIZER. HR 120, RR 34, BS COARSE, BP 136/70 POX 92%. RN WILL CALL DR BRANDT FOR FURTHER INSTRUCTION
--- NOTE | 2019-08-04 23:04 | NUR ---
FAM BRANDT PATIENT WENT INTO RESP DISTRESSED ON BIPAP, PLACED PATIENT BACK ON OXYMIZER 10L. NOW STATING >96% SPO2
[2019-08-05] VITALS (7 sets, daily range): BP systolic 108–128; BP diastolic 48–56
--- NOTE | 2019-08-05 00:04 | NUR ---
RECEIVED CALL FROM FAMILY UPDATED DAUGHTER ON PATIENT STATUS, AFTER RECEIVING CORRECT PASSWORD. ALL QUESTIONS ADDRESSED AT THIS TIME
[2019-08-05 03:35] LABS: White Blood Cell 6.1 10^3/uL (4.4-10.8)
[2019-08-05 03:37] LABS: Hematocrit 26.6 % (36.0-46.0); Hemoglobin 8.7 g/dL (12.2-16.2); Mean Corpuscular Hemoglobin 30.1 pg (28.0-32.0); Mean Corpuscular Hgb Conc. 32.6 g/dL (32.0-36.0); Mean Corpuscular Volume 92.5 fL (80.0-100.0); Red Blood Cells 2.87 10^6/uL (4.0-5.20); Red Cell Distribution Width 19.2 % (11.8-14.3)
[2019-08-05 03:51] LABS: BUN/Creatinine Ratio 43.7; Calcium 7.3 mg/dL (8.5-10.1); Potassium 3.9 mmol/L (3.5-5.1)
[2019-08-05] MEDS: InsuLIN REG 1unit/0.01ml Soln (100units/ml) SC SCH ×6 (04:00→23:59)
[2019-08-05] MEDS: ACCU-CHEK COMFORT CURVE STRIP VI SCH ×6 (04:15→23:52)
[2019-08-05 04:34] LABS: Platelet Count (auto) 11 10^3/uL (140-450)
[2019-08-05 04:35] LABS: Basophils % (manual) 0 (0.0-2.0); Blast Cells 0; Metamyelocytes % 0; Myelocytes % 0; Promyelocytes % 0; Reactive Lymphocytes 0
--- NOTE | 2019-08-05 05:10 | NUR ---
COMPLETE LINEN CHANGE COMPLETE LINEN CHANGE PROVIDED FOR PATIENT, SKIN REASSESSED AND NO NEW BREAKDOWN NOTED. WOUND CARE COMPLETED. ONE LARGE BM CLEANED
[2019-08-05] MEDS: D5W/SOD CHL 0.45% 1,000 ML IV SCH (05:25)
[2019-08-05 05:28] LABS: Band Neutrophils % (manual) 12; Eosinophils % (manual) 3 (0-7); Lymphocytes % (manual) 26 (10.0-50.0); Monocytes % (manual) 7 (0-12)
--- NOTE | 2019-08-05 06:49 | NUR ---
PT ALSO ASSESSED FOR PRN HHN TX. NOT INDICATED AT THIS TIME.
--- NOTE | 2019-08-05 06:49 | NUR ---
RECD PT OFF BIPAP AT ON 10 LITERS OXYMIZER. SPO2 95% ON CURRENT O2. PT HAS AUDIBLE RALES AND SUGGESTED TO PT SHE WOULD LIKELY BENEFIT FROM WEARING BIPAP. PT REFUSES TO WEAR BIPAP WHICH IS AT BEDSIDE. WILL OBTAIN AM ABG.
--- NOTE | 2019-08-05 07:45 | NUR ---
OPENING SHIFT NOTE: Received report from NOC RNSatinder. Assumed care of patient. Received patient resting on specialty bed, connected to bedside monitor with alarms in place, bed in lowest position, rails x3 up and call light within reach. Patient is A&Ox4, denies pain. Patient with severe weakness in both upper and lower extremities. Patient with +2 edema to BUE and BLE. Patient on 10L Oxymizer with O2 sats >90%. Lung sounds are coarse bilaterally in the upper blount right worse than the left and diminished lung sounds in bilateral bases. Patient's IVF of D5.45NS at 75ml/hr on hold due to increase coarse lung sounds. Patient's midline to right upper arm is patent and intact and right chest sharona cath is access and flushes and draws blood. Moody draining yellow urine. Dr Toth aware of this am platelet level, no new orders received. Updated on plan of care. Will continue to monitor q1hr/PRN.
--- NOTE | 2019-08-05 08:03 | NUR ---
MD Dr Anand at bedside to see patient. No new orders given.
[2019-08-05] MEDS: cefTRIAXone 1GM/50ML D5W 50 ML IV SCH (09:35)
[2019-08-05] MEDS: MEGESTROL ACET 400MG/10ML ORAL SUSP PO SCH (10:00)
--- NOTE | 2019-08-05 10:45 | NUR ---
MD Dr Toth to see patient. No orders received.
--- NOTE | 2019-08-05 11:20 | NUR ---
Patient calling out in room stating it's too hot. Removed sheet and turned thermostat down in room. Placed fan to help circulate air. Patient O2 sats dropping to 86% on 12 L Oxymizer and is tachypneic with RR 40s. Instructed patient to take slow deep breaths and increased O2 to 15L Oxymizer. Addendum: 08/05/19 at 1145 by DELANEY CARMONA RN Patient more calm and relaxed. RR now 26 and O2 sats 94% on 15L Oxymizer. Will continue to monitor.
--- NOTE | 2019-08-05 13:30 | NUR ---
FAMILY T/C from patient's daughter. Verified password. Updated on patient status. All questions answered at this time. Family to have a meeting with [facility] this afternoon. Addendum: 08/05/19 at 1520 by DELANEY CARMONA RN Family called back around 1345 after [facility] meeting. Dr Ramirez from [facility] will be contacting Dr Kramer.
--- NOTE | 2019-08-05 15:20 | NUR ---
CXR showed bilateral pleural effusions with right greater than left. Pleurx catheter drained 150ml of [place] fluid. Patient tolerated well. Will continue to monitor.
--- NOTE | 2019-08-05 15:38 | NUR ---
MD Dr Kramer to on unit. discussed that he spoke with Dr Ramirez from [facility] and is unclear where MD/family was given info regarding lung cancer diagnosis. No pathology report noted in chart. Order received to send next pleural drainage for cytology. Dr Kramer to call and notify Dr Toth.
--- NOTE | 2019-08-05 15:44 | NUR ---
Smiley PT at bedside.
--- NOTE | 2019-08-05 16:00 | NUR ---
T/C from Radiology. Dr Kramer ordered CT of chest. Spoke with Caty, in radiology, and informed her that patient cannot tolerate laying flat and is on 15L Oxymizer. Will hold on taking patient down for CT scan until condition improves. Ciera Dodge RN aware.
[2019-08-05] MEDS: FUROSEMIDE 20 MG/2 ML VIAL IV SCH (16:15)
--- NOTE | 2019-08-05 18:20 | NUR ---
RT NOTE PT WAS SEEN BY RT FOR PRN HHN TX ASSESSMENT. PT IS AWAKE AND SHOWS NO S/S OF SOB OR DISTRESS. HR 102, RR 30, BS COARSE RALES, POX 95% ON 12L OXYMIZER. PT STATES NO TX WANTED AT THIS TIME. WILL CONT TO MONITOR. NO PRN TX GIVEN AT THIS TIME. Addendum: 08/05/19 at 1909 by Minerva Christiansen RT Amended: Links added.
--- NOTE | 2019-08-05 18:44 | NUR ---
END OF SHIFT NOTE: Patient resting on specialty bed, no s/s of distress. Patient back down to 12L Oxymizer with O2 sats 93%. Lung sounds remain coarse throughout. Moody draining dark yellow urine with sediment noted. Patient's appetite remains poor, only eating ~10% of dinner. Family, Lupe, has called throughout the day and has been updated on patient status. Patient pending CT of chest when respiratory status improves and patient can tolerate laying flat. Patient pending transfusion 1 unit platelets. Report to be given to oncoming EUGENIA RN.
--- NOTE | 2019-08-05 19:30 | NUR ---
OPENING NOTE REPORT RECEIVED FROM DAY SHIFT RN DELANEY. PATIENT CONNECTED TO CONTINUOUS MONITOR WITH HEART RATE IN LOW 100'S. NOTICEABLE EDEMA TO BILATERAL UPPER AND LOWER EXTREMITIES. PATIENT ON 12L OXYMIZER WITH SPO2 AT 92%. PHYSICAL ASSESSMENT DONE-SEE INTERVENTIONS. MULTIPLE PRESSURE AREAS TO PATIENTS BUTTOCKS/SACRAL MARIANNA. PORT A CATH TO RIGHT UPPER CHEST. MIDLINE NOTED TO RIGHT UPPER ARM WITH DRESSING LAST DONE ON 08/03/19. MENDOZA IN PLACE DRAINING YELLOW URINE WITH SEDIMENT. AIR MATTRESS IN PLACE. PATIENT TO BE TURNED Q2H THROUGHOUT SHIFT, CALL LIGHT WITHIN REACH.
[2019-08-05] MEDS: methylPREDNISolone SOD SUCC 125 MG/2 ML VL IV SCH (21:27)
--- NOTE | 2019-08-05 22:40 | NUR ---
PLATELETS VERIFIED BLOOD PRODUCT WITH SECOND RN BRYANT Gray AT BEDSIDE. VITALS WNL, CONSENT VERIFIED, BLOOD PRODUCT VERIFIED. 1ST UNIT OF PLATELETS STARTED
--- NOTE | 2019-08-05 22:45 | NUR ---
PLACED ON VENTURI MASK PATIENT DE -SATURATING INTO MID 80'S ON 15L OXYMIZER. PATIENT BREATHING THROUGH MOUTH DESPITE EDUCATION TO BREATHE IN THROUGH NOSE. PATIENT PLACED ON 15L VENTURI MASK. SPO2 LEVEL GRADUALLY INCREASED TO 93% AND SUSTAINING.
--- NOTE | 2019-08-05 22:53 | NUR ---
RT NOTE PT CONTINUES TO SAT IN THE 80s ON 14L OXYMIZER. PT REFUSES TO WEAR BIPAP. PLACED PT ON 15L NRB. SATS IMPROVED AND RR IMPROVED. PT APPEARS TO TOLERATE WELL. MESHA FORD AWARE OF O2 DEVICE CHANGE. Addendum: 08/06/19 at 0253 by Minerva Christiansen RT Amended: Links added.
[2019-08-06] VITALS (9 sets, daily range): BP systolic 119–137; BP diastolic 47–68
--- NOTE | 2019-08-06 00:02 | NUR ---
RT NOTE PT WAS SEEN BY RT FOR HHN TX. PT TOLERATES WELL VIA MASK. PT DESATURATED TO THE 70S ON HHN TX AND PT STATES SHE CANNOT BREATHE. PT PLACED BACK ON 15L NRB, SATS INCREASED TO 94% CONT ORDERED Addendum: 08/06/19 at 0248 by Minerva Christiansen RT Amended: Links added.
--- NOTE | 2019-08-06 00:40 | NUR ---
PLATELETS DONE SEE VITALS SPREADSHEET
[2019-08-06 03:50] LABS: Calcium 7.4 mg/dL (8.5-10.1); Potassium 3.9 mmol/L (3.5-5.1)
[2019-08-06] MEDS: ACCU-CHEK COMFORT CURVE STRIP VI SCH ×6 (04:20→23:36)
[2019-08-06] MEDS: D5W/SOD CHL 0.45% 1,000 ML IV SCH ×2 (04:30→14:30)
[2019-08-06] MEDS: InsuLIN REG 1unit/0.01ml Soln (100units/ml) SC SCH ×6 (04:30→23:36)
--- NOTE | 2019-08-06 04:30 | NUR ---
AM CARES PATIENT GIVEN COMPLETE BED BATH. CHG WIPES USED TO WIPE PATIENT DOWN. WARM SOAPY WASH CLOTHS USED TO CLEANSE PATIENTS FACE AND NECK. PATIENT NOTED TO HAVE SMALL BM, PATIENT CLEANED AT THIS TIME. SKIN REASSESSED AT THIS TIME-NO NEW CHANGES NOTED. WOUND CARE DONE TO ALL WOUNDS. COMPLETE LINEN AND GOWN CHANGE PROVIDED. PATIENT TOLERATED WELL
[2019-08-06 06:47] LABS: Basophils # (auto) 0 10 ^3/uL (0-0.2); Eosinophils # (auto) 0 10 ^3/uL (0-0.8); Eosinophils % (auto) 0.8 % (0.0-7.0); Hemoglobin 8.2 g/dL (12.2-16.2); Lymphocytes # (auto) 0.3 10 ^3/uL (0.4-5.4); Neutrophils # (auto) 4.3 10 ^3/uL (1.6-8.6); White Blood Cell 4.9 10^3/uL (4.4-10.8)
--- NOTE | 2019-08-06 06:48 | NUR ---
Respiratory note: PT ASSESSED FOR PRN HHN TX. PT IS ON 15 LPM NB, SPO2 97%, HR 103, RR 20. PT APPEARS TO BE COMFORTABLE AT THIS TIME. PT REFUSES TO WEAR BIPAP. PRN TX NOT INDICATED AT AT THIS TIME. WILL CONTINUE TO MONITOR
[2019-08-06 06:51] LABS: Basophils % (auto) 0.5 % (0.0-2.0); Hematocrit 25.5 % (36.0-46.0); Mean Corpuscular Hemoglobin 30.1 pg (28.0-32.0); Mean Corpuscular Hgb Conc. 32.1 g/dL (32.0-36.0); Mean Corpuscular Volume 93.7 fL (80.0-100.0); Monocytes # (auto) 0.1 10 ^3/uL (0-1.3); Neutrophils % (auto) 88.7 % (37.0-80.0); Nucleated Red Blood Cells % 0.7 %; Platelet Count (auto) 34 10^3/uL (140-450); Red Blood Cells 2.72 10^6/uL (4.0-5.20); Red Cell Distribution Width 19.2 % (11.8-14.3)
--- NOTE | 2019-08-06 07:03 | NUR ---
CLOSING PATIENT SLEEPING COMFORTABLY. PATIENT ON 15L VENTURI MASK WITH SPO2 AT 96%. NO SIGNS OF DISTRESS AT THIS TIME. WILL ENDORSE CARE TO AM SHIFT RN
--- NOTE | 2019-08-06 07:45 | NUR ---
OPENING SHIFT NOTE: Received report from NOC RNClary. Assumed care of patient. Received patient resting on specialty bed, connected to bedside monitor with alarms in place, bed in lowest position, rails x3 up and call light within reach. Patient is A&Ox4, denies pain. Patient with severe weakness in both upper and lower extremities. Patient with +2 pitting edema to BUE and BLE +1 non pitting. Patient on 15L NRB mask with O2 sats >90%. Lung sounds are coarse bilaterally in the upper blount right worse than the left and diminished lung sounds in bilateral bases. Patient's IVF of D5.45NS at 60ml/hr on hold due to increase coarse lung sounds. Patient's midline to right upper arm is patent and intact and right chest sharona cath is access and flushes and draws blood. Moody draining yellow urine. Updated on plan of care. Will continue to monitor q1hr/PRN.
--- NOTE | 2019-08-06 08:30 | NUR ---
Patient refused breakfast. Held insulin for BG of 160. Will continue to monitor.
[2019-08-06] MEDS: MEGESTROL ACET 400MG/10ML ORAL SUSP PO SCH (10:00)
[2019-08-06] MEDS: cefTRIAXone 1GM/50ML D5W 50 ML IV SCH (11:04)
[2019-08-06] MEDS: methylPREDNISolone SOD SUCC 125 MG/2 ML VL IV SCH ×2 (11:07→21:24)
[2019-08-06] MEDS: FUROSEMIDE 20 MG/2 ML VIAL IV SCH (11:07)
--- NOTE | 2019-08-06 11:30 | NUR ---
MD Dr Anand, cardiology to see patient.
--- NOTE | 2019-08-06 12:18 | NUR ---
WOUND CARE NOTE: Attempted to see patient for wound reevaluation and skin integrity monitoring. Per bedside nurse's request to delay reevaluation due to patient is not tolerating full turning and desaturate.Will try to see patient at later time. Informed bedside nurse to call wound care of any changes and when they'll turn/clean patient.
--- NOTE | 2019-08-06 13:00 | NUR ---
Attempted to place patient on 15L Oxymizer so she can eat lunch. Patient quickly desat to the 78% while changing between NRB mask and Oxymizer. Patient unable to recover on Oxymizer and O2 sats stayed around 85%. Placed patient back on NRB mask at 15L and attempted to feed patient. Patient unable to swallow and began to cough. Suctioned oral cavity. Meal held. Will continue to monitor.
--- NOTE | 2019-08-06 13:15 | NUR ---
PT Physical therapy at bedside working with patient. Attempted to sit patient on edge of bed. Patient unable to tolerate.
--- NOTE | 2019-08-06 13:50 | NUR ---
MD Dr Noyola at bedside to see patient.
--- NOTE | 2019-08-06 17:53 | NUR ---
Drained 200ml of serous fluid from pleurx drain. Sample sent to lab for cytology per Dr Kramer's request. Patient tolerated well. No cough no pain noted.
[2019-08-06] MEDS: FUROSEMIDE 100 MG/10ML VIAL IV SCH (18:43)
[2019-08-06] MEDS: ALBUTEROL SULF 2.5 MG/0.5ML(0.5%) NEB SOLN NEB PRN (18:44)
--- NOTE | 2019-08-06 18:47 | NUR ---
RT NOTE: PT REMAINS ON NRB 15LPM SPO2 92%, WHEN SWITCHED TO BREATHING TX AEROSOL MASK SPO2 82%. PT SWITCHED BACK TO NRB 15LPM. PT HAS BIPAP AT BEDSIDE BUT REFUSING TO WEAR.
--- NOTE | 2019-08-06 19:23 | NUR ---
END OF SHIFT NOTE: Patient resting on specialty bed, no s/s of distress. Patient on Venturi Mask at 15L with O2 sats 99%. Lung sounds remain coarse throughout. Moody draining dark yellow urine with sediment noted. Patient's appetite remains poor, and has been refusing meals. Patient still pending CT of chest when respiratory status improves and patient can tolerate laying flat. Report to be given to oncoming EUGENIA RN.
--- NOTE | 2019-08-06 19:30 | NUR ---
OPENING NOTE REPORT RECEIVED FROM SHAVONNE RN. PATIENT RESTING COMFORTABLY, CONNECTED TO CONTINUOUS MONITORS. PATIENT ON 15L VENTURI MASK WITH SPO2 AT 98%. PATIENT HAS MENDOZA WITH YELLOW URINE, SEDIMENT NOTED. PORTACATH TO RIGHT CHEST IN PLACE. MIDLINE TO RIGHT UPPER ARM RUNNING ORDERED FLUIDS-SEE IV SPREAD SHEET. PHYSICAL ASSESSMENT DONE-SEE INTERVENTIONS. PATIENT ON AIR MATTRESS AND SCD;S. WILL TURN Q2H AND REPOSITION FREQUENTLY. CALL LIGHT WITHIN REACH.
[2019-08-07] VITALS (9 sets, daily range): BP systolic 107–127; BP diastolic 39–57
[2019-08-07 03:45] LABS: Basophils # (auto) 0 10 ^3/uL (0-0.2); Eosinophils # (auto) 0 10 ^3/uL (0-0.8); Hemoglobin 8.2 g/dL (12.2-16.2); Lymphocytes # (auto) 0.5 10 ^3/uL (0.4-5.4); Neutrophils # (auto) 5.3 10 ^3/uL (1.6-8.6)
[2019-08-07 03:49] LABS: Basophils % (auto) 0.1 % (0.0-2.0); Eosinophils % (auto) 0.4 % (0.0-7.0); Hematocrit 25.8 % (36.0-46.0); Lymphocytes % (auto) 7.7 % (10.0-50.0); Mean Corpuscular Hemoglobin 29.8 pg (28.0-32.0); Mean Corpuscular Hgb Conc. 31.8 g/dL (32.0-36.0); Mean Corpuscular Volume 93.8 fL (80.0-100.0); Monocytes # (auto) 0.2 10 ^3/uL (0-1.3); Monocytes % (auto) 4.1 % (0.0-12.0); Neutrophils % (auto) 87.7 % (37.0-80.0); Nucleated Red Blood Cells % 0.5 %; Red Blood Cells 2.75 10^6/uL (4.0-5.20); Red Cell Distribution Width 19.4 % (11.8-14.3)
[2019-08-07 04:07] LABS: Calcium 7.5 mg/dL (8.5-10.1); Potassium 3.9 mmol/L (3.5-5.1)
[2019-08-07 04:08] LABS: Platelet Count (auto) 16 10^3/uL (140-450)
[2019-08-07 04:09] LABS: BUN/Creatinine Ratio 41.6
[2019-08-07] MEDS: ACCU-CHEK COMFORT CURVE STRIP VI SCH ×6 (04:13→23:19)
[2019-08-07] MEDS: InsuLIN REG 1unit/0.01ml Soln (100units/ml) SC SCH ×6 (04:16→23:20)
--- NOTE | 2019-08-07 05:41 | NUR ---
AM CARES PATIENT GIVEN COMPLETE BED BATH. CHG WIPES USED, WARM SOAPY WASH CLOTHS USED TO CLEANSE PATIENT. WOUND CARE DONE AT THIS TIME USING WOUND CLEANSER, STERILE GAUZE AND Z GUARD. NEW OPTIFOAM'S PLACED TO ALL WOUNDS. PATIENT TOLERATED WELL
--- NOTE | 2019-08-07 06:22 | NUR ---
CRITICAL LAB PAGED REGARDING CRITICAL PLATELET LEVEL RECEIVED THIS AM AWAITING FOR CALL BACK WITH ANY NEW ORDERS
[2019-08-07] MEDS: FUROSEMIDE 100 MG/10ML VIAL IV SCH ×2 (06:30→18:12)
--- NOTE | 2019-08-07 07:05 | NUR ---
CLOSING PATIENT SLEEPING AT THIS TIME. PATIENT ON 15L VENTURI MASK WITH SPO2 AT 99%. PATIENT CONNECTED TO MONITOR. FALL PRECAUTIONS IN PLACE, CALL LIGHT WITHIN REACH. WILL ENDORSE CARE TO AM SHIFT MESHA AVILEZ
--- NOTE | 2019-08-07 07:45 | NUR ---
OPENING SHIFT NOTE: Received report from NOC RNClary. Assumed care of patient. Received patient resting on specialty bed, connected to bedside monitor with alarms in place, bed in lowest position, rails x3 up and call light within reach. Patient is A&Ox4, denies pain. Patient with severe weakness in both upper and lower extremities. Patient with +2 pitting edema to BUE and BLE +1 non pitting. Patient on 15L NRB mask with O2 sats >90%. Lung sounds are coarse bilaterally in the upper blount right worse than the left and diminished lung sounds in bilateral bases. Patient's IVF of D5.45NS at 40ml/hr. Patient's midline to right upper arm is patent and intact and right chest sharona cath is access and flushes and draws blood. Moody draining yellow urine. Updated on plan of care. Will continue to monitor q1hr/PRN.
[2019-08-07] MEDS: ALBUTEROL SULF 2.5 MG/0.5ML(0.5%) NEB SOLN NEB PRN ×2 (08:18→11:47)
--- NOTE | 2019-08-07 09:37 | NUR ---
WOUND CARE NOTE: Wound care in to see patient for reevaluation of wounds. Patient continue resting on air mattress in SDU Rm. 262. Patient's eyes are closed, respirations even and unlabored. She's in no stated pain at this time and she appears to be in no pain using Esteban Carlos Faces Pain Scale. She's max assist in turning and repositioning and her Ryder score is 14. Skin/wound assessment done with the assistance of patient's nurse, MESHA Hernandez. Patient's Rt medial thigh, Rt and Lt posterior thighs ulceration from MASD are improving and mostly closed with small (0.5x0.5cm) open area to Rt medial sacrum. Wound is pink with pink gustavo wound, clean and dry. Pressure ulcer to medial sacrum 2.2x2.0cm), coccyx (1.5x1.2cm)L buttock (1.2x1.2cm) and Rt buttock (0.5x0.5cm) remain the same, with dark red, dry peeling surrounding skin. L posterior thigh continue to display Stage 3 pressure injury measuring 1.5x1cm. Wound bed is red, dry and clean with pink surrounding skin, no drainage/odor noted. Skin tear to L breast continue to improve, now display 0.5x0.5cm pink scar tissue. Cleansed all wounds, photograph taken for reference and changed the dressing per MD order. Patient tolerated well. Repositioned for comfort on her back, redistributed pressure points with pillows. MESHA Hernandez at bedside. RECOMMENDATION: Continuation of all wound care orders prescribed by MD, continue with skin wound plan of care, continue monitoring by wound care while patient is hospitalized. Addendum: 08/07/19 at 1331 by Natalee Avila RN Amended: Links added.
--- NOTE | 2019-08-07 09:39 | NUR ---
WOUND CARE Wound care nurse at bedside. Photos taken of wounds. Patient tolerated well lying on right side.
[2019-08-07] MEDS: MEGESTROL ACET 400MG/10ML ORAL SUSP PO SCH (10:00)
--- NOTE | 2019-08-07 10:00 | NUR ---
MD Dr Anand at bedside to see patient.
[2019-08-07] MEDS: cefTRIAXone 1GM/50ML D5W 50 ML IV SCH (10:15)
[2019-08-07] MEDS: methylPREDNISolone SOD SUCC 125 MG/2 ML VL IV SCH ×2 (10:15→21:59)
[2019-08-07] MEDS: D5W/SOD CHL 0.45% 1,000 ML IV SCH (14:30)
--- NOTE | 2019-08-07 16:16 | NUR ---
ABG complete. Results shown to Dr Garcia. Patient placed back on bipap.
--- NOTE | 2019-08-07 16:33 | NUR ---
Hold PT today. Will attempt again tomorrow.
--- NOTE | 2019-08-07 19:26 | NUR ---
END OF SHIFT NOTE: Patient resting on specialty bed, no s/s of distress. Patient on Bipap / at 70%. Lung sounds remain coarse throughout. Moody draining dark yellow urine with sediment noted. Patient's appetite remains poor, and has been refusing meals. Patient still pending CT of chest when respiratory status improves and patient can tolerate laying flat. Report to be given to oncoming NOC RN.
--- NOTE | 2019-08-07 19:45 | NUR ---
SHIFT OPENING NOTE RECEIVED PATIENT LAYING IN BED SLEEPING. AROUSABLE TO PAIN. UNABLE TO ANSWER QUESTIONS AT THIS TIME. VERY LETHARGIC. ON BIPAP 12/30, 60% FI02. POX 94%. PLEURX DRAIN TO RIGHT LATERAL CHEST. MENDOZA CATH DRAINING DARK YELLOW URINE TO GRAVITY. IHSNA MIDLINE INFUSING FLUIDS. RIGHT SUBCLAVIAN PORT A CATH ACCESSED SALINE LOCKED. PHYSICAL ASSESSMENT COMPLETED, SEE INTERVENTIONS. INSTRUCTED ON POC AND TO CALL FOR ASSIST NEEDED. BED IS IN THE LOWEST POSITION WITH SIDE RAILS UP X2, CALL LIGHT IS WITHIN REACH.
[2019-08-08] VITALS (66 sets, daily range): BP systolic 74–140; BP diastolic 26–89
--- NOTE | 2019-08-08 03:00 | NUR ---
MORNING HYGIENE CARE PARTIAL BED BATH PERFORMED WITH CHG WIPES. GOWN CHANGED. PARTIAL LINEN CHANGED. PATIENT REPOSITIONED FOR COMFORT. TOLERATED IT WELL. REMAINS ON BIPAP.
[2019-08-08] MEDS: InsuLIN REG 1unit/0.01ml Soln (100units/ml) SC SCH ×5 (04:00→19:41)
[2019-08-08] MEDS: ACCU-CHEK COMFORT CURVE STRIP VI SCH ×5 (04:32→19:30)
[2019-08-08] MEDS: FUROSEMIDE 100 MG/10ML VIAL IV SCH ×2 (06:00→17:57)
--- NOTE | 2019-08-08 06:13 | NUR ---
DR. SULLIVAN NOTIFIED ABOUT LOW BP IN THE 80'S AND LOW URINE OUTPUT. AWAITING CALL BACK.
--- NOTE | 2019-08-08 07:18 | NUR ---
END OF SHIFT REPORT GIVEN AND CARE ENDORSED TO ABDIAS ZIMMER.
--- NOTE | 2019-08-08 07:18 | NUR ---
REPORT RECEIVED FROM SECOND SHIFT SUPERVISOR RN
--- NOTE | 2019-08-08 08:57 | NUR ---
PT UNSTABLE FOR TRANSPORT TO CT AT THIS TIME
[2019-08-08] MEDS: cefTRIAXone 1GM/50ML D5W 50 ML IV SCH (09:09)
[2019-08-08] MEDS: MEGESTROL ACET 400MG/10ML ORAL SUSP PO SCH (09:11)
[2019-08-08] MEDS: methylPREDNISolone SOD SUCC 125 MG/2 ML VL IV SCH ×2 (09:11→22:31)
[2019-08-08] MEDS: NOREPINEPHRINE 8 MG/250ML KIT 250 ML IV SCH ×2 (09:15→17:58)
[2019-08-08] MEDS ORDERED: NOREPINEPHRINE 8 MG/250ML KIT 250 ML IV ONE (09:15)
--- NOTE | 2019-08-08 09:47 | NUR ---
FAMILY AT BEDSIDE TO SEE PATIENT
--- NOTE | 2019-08-08 11:11 | NUR ---
PATIENT RESTING WITH NO S/S OF DISTRESS
[2019-08-08] MEDS: PHENYLEPHRINE IV 250 ML IV SCH ×2 (12:34→20:54)
--- NOTE | 2019-08-08 12:40 | NUR ---
ANIL ARENAS AT BEDSIDE WOULD LIKE TO KEEP PATIENT MODIFIED DNR AT THIS TIME. SIGNED DNR FORM. UPDATED ON PATIENT STATUS. ALL QUESTIONS AND CONCERNS ADDRESSED AT THIS TIME Addendum: 08/08/19 at 1241 by Sen Cueto RN TIME [id number]
[2019-08-08] MEDS ORDERED: SODIUM BICARBONATE 8.4 % INJ 50ML VIAL IV ONE ×2 (13:30→15:15)
--- NOTE | 2019-08-08 13:42 | NUR ---
PLERUX CATHETER DRAINAGE BY JEZ ZIMMER, WITH 75 CC CLEAR YELLOW FLUID OUTPUT
--- NOTE | 2019-08-08 13:53 | NUR ---
DR. SULLIVAN AT BEDSIDE HAD LENGTHY DISCUSSION WITH FAMILY REGARDING PATIENT STATUS AND PLAN OF CARE. ALL QUESTIONS AND CONCERNS ADDRESSED A THIS TIME. FAMILY REQUESTING CHEMICAL CODE ONLY. FORM SIGNED BY PHYSICIAN AND DEEPA FELIX AND PLACED IN FRONT OF CHART
[2019-08-08] MEDS: D5W/SOD CHL 0.45% 1,000 ML IV SCH (14:30)
--- NOTE | 2019-08-08 15:51 | NUR ---
ORAL CARE PERFORMED AT THIS TIME
--- NOTE | 2019-08-08 16:45 | NUR ---
Respiratory note: TITRATED FIO2 TO 50% PER ABG RESULT. RN AWARE OF CHANGE. WILL CONTINUE TO MONITOR PT.
--- NOTE | 2019-08-08 18:01 | NUR ---
PATIENT REPOSITIONED AT THIS TIME
--- NOTE | 2019-08-08 19:14 | NUR ---
REPORT GIVEN TO TREVOR ZIMMER TO ASSUME CARE
--- NOTE | 2019-08-08 19:45 | NUR ---
Transfer to ICU Room 105 with MESHA Rajan.
--- NOTE | 2019-08-08 19:45 | NUR ---
Respiratory note: INCREASED FIO2 BACK UP TO 60% PT'S SPO2 AT 88-89%.
--- NOTE | 2019-08-08 19:50 | NUR ---
OPENING NOTE PATIENT MODIFIED CHEM CODE, NO INTUBATION, NO CPR. ON BIPAP 24/8 50% FIO2, STATING 89-90 ON BEDSIDE MONITOR. PATIENT NOT FOLLOWING COMMANDS. RIGHT SIDE PLEURX CATH CDI. ST 126 ON BEDSIDE MONITOR, BP 128/64 WITH LEVO 16. RECTAL THERMOMETER PLACED, READING 99.1'F. MENDOZA PATIENT TO GRAVITY. RIGHT UPPER ARM MIDLINE AND RIGHT CHEST PORTACATH CDI TRANSFUSING MEDICATIONS. MULTIPLE SKIN ISSUES, FOR MORE INFORMATION SEE INTERVENTIONS, ON SPECIALTY MATTRESS. PLACED PATIENT IN POSITION OF COMFORT. BED LOCKED, LOWERED AND IN POSITION FOR COMFORT. FOR GTTS AND THEIR TITRATIONS SEE IV SPREAD SHEET.
--- NOTE | 2019-08-08 20:32 | NUR ---
FAMILY AT BEDSIDE DAUGHTER, SON, AND GRANDDAUGHTER AT BEDSIDE, ALL UPDATED ON PATIENT STATUS. ALL QUESTIONS ADDRESSED AT THIS TIME. ALLOWING 4 GUEST IN ROOM FOLLOWING STRICT GUEST COVID 19 PRECAUTIONS ON VISITORS.
[2019-08-09] VITALS (58 sets, daily range): BP systolic 37–148; BP diastolic 15–99
[2019-08-09] MEDS: ACCU-CHEK COMFORT CURVE STRIP VI SCH ×4 (01:00→11:26)
[2019-08-09] MEDS: InsuLIN REG 1unit/0.01ml Soln (100units/ml) SC SCH ×4 (01:00→11:26)
--- NOTE | 2019-08-09 04:00 | NUR ---
DAUGHTER AT BEDSIDE UPDATED ON PATIENT STATUS, ALL QUESTIONS ADDRESSED AT THIS TIME
--- NOTE | 2019-08-09 04:45 | NUR ---
MECHANICAL ISSUES WHEN REASSESSING BLOOD PRESSURE OF 84/43, BLOOD PRESSURE RETURNED TO BE 201/167, TESTING MACHINE ON SELF AND BLOOD PRESSURE CUFF INCREASED TO OVER 300 SBP. RESET MONITOR AND TROUBLE SHOOTING, REASSESS PATIENT BP AT 0537 AND RESULTED WITH BP 51/23. INCREASED LEVOPHED PER PHARMACY PROTOCOL FAMILY AT BEDSIDE, UPDATED ON PATIENT STATUS.
[2019-08-09 05:09] LABS: Mean Corpuscular Volume 96.9 fL (80.0-100.0); Red Cell Distribution Width 19.8 % (11.8-14.3)
[2019-08-09 05:10] LABS: Potassium 4.6 mmol/L (3.5-5.1)
[2019-08-09 05:11] LABS: Hematocrit 29.8 % (36.0-46.0); Hemoglobin 9.2 g/dL (12.2-16.2); Mean Corpuscular Hemoglobin 29.9 pg (28.0-32.0); Mean Corpuscular Hgb Conc. 30.9 g/dL (32.0-36.0); Red Blood Cells 3.07 10^6/uL (4.0-5.20)
[2019-08-09 05:16] LABS: Albumin 1.3 g/dL (3.4-5.0); BUN/Creatinine Ratio 31.3; Bilirubin, Total 1.2 mg/dL (0.2-1.0); Calcium 6.7 mg/dL (8.5-10.1); Total Protein 4.6 g/dL (6.4-8.2)
[2019-08-09 05:33] LABS: Platelet Count (auto) 10 10^3/uL (140-450)
[2019-08-09 05:35] LABS: Basophils % (manual) 0 (0.0-2.0); Blast Cells 0; Eosinophils % (manual) 0 (0-7); Metamyelocytes % 0; Myelocytes % 0; Promyelocytes % 0; Reactive Lymphocytes 0
[2019-08-09 05:56] LABS: Band Neutrophils % (manual) 9
[2019-08-09 05:57] LABS: Lymphocytes % (manual) 7 (10.0-50.0); Monocytes % (manual) 3 (0-12)
[2019-08-09] MEDS: PHENYLEPHRINE IV 250 ML IV SCH ×2 (05:57→11:27)
[2019-08-09] MEDS: FUROSEMIDE 100 MG/10ML VIAL IV SCH (05:57)
[2019-08-09 06:02] LABS: White Blood Cell 7.9 10^3/uL (4.4-10.8)
--- NOTE | 2019-08-09 07:13 | NUR ---
Respiratory note: ABG DRAWN AND RESULTS REPORTED TO DR BRANDT VIA PHONE AND MESHA GOMEZ AND MESHA MURRAY.
[2019-08-09] MEDS: cefTRIAXone 1GM/50ML D5W 50 ML IV SCH (08:16)
[2019-08-09] MEDS: NOREPINEPHRINE 8 MG/250ML KIT 250 ML IV SCH (08:29)
[2019-08-09] MEDS ORDERED: SODIUM BICARBONATE 8.4 % INJ 50ML VIAL IV ONE (08:30)
--- NOTE | 2019-08-09 08:47 | NUR ---
RECHECKED BLOOD GLUCOSE Blood glucose 63 after D50.
--- NOTE | 2019-08-09 08:50 | NUR ---
MD Patel at bedside updated on patient condition with no new orders received. Will continue to monitor patient closely.
[2019-08-09] MEDS: MEGESTROL ACET 400MG/10ML ORAL SUSP PO SCH (09:51)
[2019-08-09] MEDS: methylPREDNISolone SOD SUCC 125 MG/2 ML VL IV SCH (09:57)
--- NOTE | 2019-08-09 10:35 | NUR ---
Respiratory note: REPEAT ABG ORDERED BY DR BRANDT. RESULTS REPORTED TO DR BRANDT VIA TELEPHONE.
[2019-08-09] MEDS ORDERED: SODIUM BICARBONATE 50ML VIAL 50 ML in D5W 5% 1,000 ML IV SCH (11:00)
--- NOTE | 2019-08-09 11:45 | NUR ---
Nutrition Followup Notes WT: 88.5 kg Pt is now in ICU, Pt is SOB on BIPAP when rounded this morning. Pt is currently NPO, noted that family has been feeding her prior to NPO status per RN doc. Pt with no noted distress per RN doc. Will continue to closely monitor pertinent labs, PO intake and skin status prn. Will followup in 2-3 days Est Energy needs: [id number] kcals (20-23 kcal/kgBW), Est Protein needs: 47-59 gms/day (0.6-0.75 gm/kgBW). Will continue to monitor and reassess prn. LABS: BUN 93 H, Creat 2.97 H, GFR 16 L, Gluc 63 L, Alb 1.3 L GI: Pt last BM noted on 08/04 per RN doc. BS: 14 mod risk. Please refer to wound assessment report for full details. PES: Altered nutrition related lab values r.t current chronic medical condition aeb elev RFTs, Stg 4 CKD, hyperglycemia,hypocalcemia, low LFTs, dyslipidemia, severe hypoalbuminemia Increased nutrient needs r/t pt with no PO intake aeb pt sedated, intubated, NPO (Note pt is now non-sedated with doll's eyes) Rec: 1) continue to carefully monitor pt NPO status 2) consider ensure Enlive 1 carton bid if PO continues to be low, 3) continue assistance with meals. 4) consider prostat 1 packet bid as RFT improve 5) Continue current plan of care. F/u mod 3-5days
[2019-08-09] MEDS: ALBUTEROL SULF 2.5 MG/0.5ML(0.5%) NEB SOLN NEB PRN (12:01)
--- NOTE | 2019-08-09 12:30 | NUR ---
FAMILY Family at bedside updated on patient condition and questions/concerns answered.
--- NOTE | 2019-08-09 12:45 | NUR ---
FAMILY Family has decided to stop everything including BIPAP and make patient comfort measures. Will notify .
--- NOTE | 2019-08-09 12:55 | NUR ---
Called Dr. Toth's exchange and awaiting for call back.
--- NOTE | 2019-08-09 14:40 | NUR ---
MD Called and spoke to Dr. López regarding FAMILY wanting to make patient DNR and comfort measures. MD agreed and gave order via telephone witnessed by Ketty ZIMMER.
--- NOTE | 2019-08-09 14:45 | NUR ---
FAMILY Notified family that this RN has spoken to Dr. López and he agreed to make patient DNR and comfort measure. Family at this time states " DNR is okay but changed mind about turning off BIPAP/GTTS."
--- NOTE | 2019-08-09 15:40 | NUR ---
GTT's GTT's turned off per family request.
--- NOTE | 2019-08-09 15:50 | NUR ---
ASYSTOLE Patient went into asystole. Upon assessment NO pulses felt, NO heart tones heard and NO lung sounds heard. Will call hospitalist to pronounce patient.
--- NOTE | 2019-08-09 16:07 | NUR ---
ANASTASIA Fountain at bedside to pronounce patient. TIME OF 1607.
--- NOTE | 2019-08-09 16:30 | NUR ---
[facility] Called and spoke to DAVIS from [facility]: Patient is defer to organ donation. REFERENCE NUMBER: [id number]
--- NOTE | 2019-08-09 16:45 | NUR ---
[facility] Called and spoke to Macey at the [facility] office [phone] states " c python developer will give you a call back."
--- NOTE | 2019-08-09 19:10 | NUR ---
REPORT Report given to Satinder ZIMMER who is aware of pending pipe smoker machine operator call.
--- NOTE | 2019-08-09 20:00 | NUR ---
SPOKE WITH [employer] RELEASE NUMBER [phone]
--- NOTE | 2019-08-09 21:13 | NUR ---
SPOKE WITH MORTUARY GAVE INFORMATION TO SERVICE [address] [place] [id number] PHONE NUMBER [phone] ETA [id number] HRS
== END 2019-08-09 23:10 | disposition expired | DRG 870 ==
LOC: ER 15:45 → EDBD 15:45 → TELE 15:46 → ICU WEST 23:36 → DOU IN ICU 07-25 06:03 → TELE-WESTW 07-27 23:15 → ICU CENTRL 08-03 00:13 → DOU IN ICU 08-03 00:56 → ICU WEST 08-08 19:48
PROVIDERS: ADMIT Internal Medicine; ATTEND Internal Medicine
PROC: 0W9930Z Drainage of Right Pleural Cavity with Drainage Device, Percutaneous Approach (ICD-10-PCS; principal; 2019-07-17)
PROC: 5A1955Z Respiratory Ventilation, Greater than 96 Consecutive Hours (ICD-10-PCS; 2019-07-17)
PROC: 0BH17EZ Insertion of Endotracheal Airway into Trachea, Via Natural or Artificial Opening (ICD-10-PCS; 2019-07-17)
PROC: 04HY32Z Insertion of Monitoring Device into Lower Artery, Percutaneous Approach (ICD-10-PCS; 2019-07-18)
PROC: 4A133B1 Monitoring of Arterial Pressure, Peripheral, Percutaneous Approach (ICD-10-PCS; 2019-07-18)
PROC: 4A133J1 Monitoring of Arterial Pulse, Peripheral, Percutaneous Approach (ICD-10-PCS; 2019-07-18)
PROC: 30233N1 Transfusion of Nonautologous Red Blood Cells into Peripheral Vein, Percutaneous Approach (ICD-10-PCS; 2019-07-18)
PROC: 5A09357 Assistance with Respiratory Ventilation, Less than 24 Consecutive Hours, Continuous Positive Airway Pressure (ICD-10-PCS; 2019-08-02)
PROC: 30233R1 Transfusion of Nonautologous Platelets into Peripheral Vein, Percutaneous Approach (ICD-10-PCS; 2019-08-05)
PROC: 5A09457 Assistance with Respiratory Ventilation, 24-96 Consecutive Hours, Continuous Positive Airway Pressure (ICD-10-PCS; 2019-08-07)
DX: A41.9 Sepsis, unspecified organism (principal); J96.01 Acute respiratory failure with hypoxia; J18.9 Pneumonia, unspecified organism; R65.21 Severe sepsis with septic shock; N17.0 Acute kidney failure with tubular necrosis; E43 Unspecified severe protein-calorie malnutrition; G93.41 Metabolic encephalopathy; J96.02 Acute respiratory failure with hypercapnia; C95.90 Leukemia, unspecified not having achieved remission; D61.818 Other pancytopenia; J98.11 Atelectasis; J90 Pleural effusion, not elsewhere classified; J44.0 Chronic obstructive pulmonary disease with (acute) lower respiratory infection; C34.90 Malignant neoplasm of unspecified part of unspecified bronchus or lung; G93.1 Anoxic brain damage, not elsewhere classified; E87.1 Hypo-osmolality and hyponatremia; E87.0 Hyperosmolality and hypernatremia; Z94.81 Bone marrow transplant status; C91.10 Chronic lymphocytic leukemia of B-cell type not having achieved remission; C85.90 Non-Hodgkin lymphoma, unspecified, unspecified site; I13.0 Hypertensive heart and chronic kidney disease with heart failure and stage 1 through stage 4 chronic kidney disease, or unspecified chronic kidney disease; J44.1 Chronic obstructive pulmonary disease with (acute) exacerbation; D63.1 Anemia in chronic kidney disease; E83.51 Hypocalcemia; E11.22 Type 2 diabetes mellitus with diabetic chronic kidney disease; Z20.828 Contact with and (suspected) exposure to other viral communicable diseases; N18.9 Chronic kidney disease, unspecified; E87.6 Hypokalemia; E66.9 Obesity, unspecified; F17.200 Nicotine dependence, unspecified, uncomplicated; I50.9 Heart failure, unspecified; Z66 Do not resuscitate; R33.9 Retention of urine, unspecified; I25.10 Atherosclerotic heart disease of native coronary artery without angina pectoris; Z79.82 Long term (current) use of aspirin; Z79.899 Other long term (current) drug therapy; Z68.31 Body mass index [BMI] 31.0-31.9, adult; Z82.49 Family history of ischemic heart disease and other diseases of the circulatory system; Z95.1 Presence of aortocoronary bypass graft; Z99.81 Dependence on supplemental oxygen; E03.9 Hypothyroidism, unspecified
CPT/HCPCS: 36415; 36600; 51702; 71045; 76775; 80048; 80053; 80061; 80202; 81001; 82306; 82565; 82570; 82728; 82805; 82962; 83036; 83605; 83615; 83735; 83880; 83970; 84100; 84156; 84300; 84443; 84484; 85007; 85014; 85018; 85025; 85027; 85379; 85610; 86141; 86850; 86900; 86901; 86920; 87040; 87070; 87077; 87081; 87186; 87205; 87804; 87880; 92610; 93005; 94003; 94640; 94660; 95819; 96365; 96368; 96372; 97110; 97163; 97530; 99291; G0378; J0696; J1815; J2001; J2185; J2405; J2543; J2704; J3480; J7042; J7060